=== PATIENT | male | born 1935 | race Caucasian/White ===

== ENCOUNTER → 2016-10-15 | Outpatient (CLI) | payer MEDICARE, BC ==
[2016-10-15 16:16] LABS: INR 2.2 (<1.1); Prothrombin Time 21.5 sec (9.0-12.0)
== END | disposition home or self-care (01) ==
LOC: LABWHC1 15:24
PROVIDERS: ATTEND Internal Medicine
DX: Z08 Encounter for follow-up examination after completed treatment for malignant neoplasm (principal); Z85.46 Personal history of malignant neoplasm of prostate
CPT/HCPCS: 36415; 84153; 85610

== ENCOUNTER → 2017-09-09 | Outpatient (CLI) | payer MEDICARE, BC | END | disposition home or self-care (01) | LOC: LABWHC1 13:24 | PROVIDERS: ATTEND Urology | DX: C61 Malignant neoplasm of prostate (principal) | CPT/HCPCS: 36415; 84153 ==

== ENCOUNTER 2018-08-22 17:26 | Inpatient (IN) | payer MEDICARE, BC ==
[2018-08-22] MEDS ORDERED: SODIUM CHLORIDE 0.9% 1,000 ML IV STA ×3 (18:03→21:18)
--- NOTE | 2018-08-22 18:08 | ED ---
Recheck HPI - General Chief Complaint: Recheck/Abnormal Lab/Rx Stated Complaint: abn labs Time Seen by Provider: 08/22/18 18:03 Source: patient, family, RN notes reviewed, old records reviewed Mode of arrival: wheelchair Limitations: no limitations - History of Present Illness Initial Comments: This is an 82-year-old male the ER for evaluation. Patient coming in for evaluation of multiple complaints today. Abnormal outpatient labs including elevated INR with nausea decreased appetite abdominal pain and constipation. Patient states he feels very weak lightheaded and dizzy. Having occasional bright red blood in stool. Patient denies any episodes of syncopal events. No surgery in his abdomen. Patient also place him he did have some gallbladder issues, is having some right upper quadrant bowel pain under his rib that is much worse with eating. MD Complaint: abnormal lab (Elevated INR), other (Patient also having weakness abdominal pain right upper quadrant pain) -: week(s) Returns Today for: Called Because of Abnormal Lab/Test, other (Patient also had outpatient computed tomography scan lab work sent to ER for evaluation of elevated INR) Symptoms Since Prior Visit: fever (Episodic, not documented) Context: called for abnormal lab result (As well as radiology report) Associated Symptoms: nausea, abdominal pain - Related Data Home Medications Medication Instructions Recorded Confirmed Telmisartan [Micardis] 20 mg PO DAILY 12/17/14 08/22/18 Vit C/E/Zn/Coppr/Lutein/Zeaxan 1 tab PO DAILY 12/20/14 08/22/18 [Preservision Areds 2 Softgel] Acetaminophen [Tylenol] 325 mg PO DAILY 08/22/18 08/22/18 Cholecalciferol [Vitamin D3] 1,000 unit PO DAILY 08/22/18 08/22/18 Cyanocobalamin (Vitamin B-12) 1,000 mcg PO DAILY 08/22/18 08/22/18 [Vitamin B-12] Warfarin Sodium 5 mg PO DAILY 08/22/18 08/22/18 Allergies Allergy/AdvReac Type Severity Reaction Status Date / Time No Known Allergies Allergy Verified 08/22/18 18:30 Review of Systems ROS Statement: Those systems with pertinent positive or pertinent negative responses have been documented in the HPI. ROS Other: All systems not noted in ROS Statement are negative. Past Medical History Past Medical History: Coronary Artery Disease (CAD), Hypertension, Prostate Disorder, Pulmonary Embolus (PE), Vascular Disorder Additional Past Medical History / Comment(s): prostate ca received 37 radiation treatment and Leupron, bilateral PE 2004 treated for a total 3 year with coumadin, psoriasis History of Any Multi-Drug Resistant Organisms: None Reported Past Surgical History: Orthopedic Surgery Additional Past Surgical History / Comment(s): Hx. stent right groin, and cardiac Past Anesthesia/Blood Transfusion Reactions: No Reported Reaction Past Psychological History: No Psychological Hx Reported Smoking Status: Former smoker Past Alcohol Use History: None Reported Past Drug Use History: None Reported General Exam Limitations: no limitations General appearance: alert, in no apparent distress Head exam: Present: atraumatic, normocephalic, normal inspection Eye exam: Present: normal appearance, PERRL, EOMI. Absent: scleral icterus, conjunctival injection, periorbital swelling ENT exam: Present: normal exam, mucous membranes moist Neck exam: Present: normal inspection. Absent: tenderness, meningismus, lymphadenopathy Respiratory exam: Present: normal lung sounds bilaterally. Absent: respiratory distress, wheezes, rales, rhonchi, stridor Cardiovascular Exam: Present: regular rate, normal rhythm, normal heart sounds. Absent: systolic murmur, diastolic murmur, rubs, gallop, clicks GI/Abdominal exam: Present: soft, distended, tenderness (Right upper quadrant), normal bowel sounds. Absent: guarding, rebound, rigid Extremities exam: Present: normal inspection, full ROM, normal capillary refill. Absent: tenderness, pedal edema, joint swelling, calf tenderness Back exam: Present: normal inspection Neurological exam: Present: alert, oriented X3, CN II-XII intact Psychiatric exam: Present: normal affect, normal mood Skin exam: Present: warm, dry, intact, normal color. Absent: rash Course Vital Signs 08/22/18 08/22/18 08/22/18 17:44 18:07 18:10 Temperature 98.3 F Pulse Rate 92 87 Respiratory 18 15 Rate Blood Pressure 98/69 124/71 124/71 O2 Sat by Pulse 94 L 97 96 Oximetry 08/22/18 08/22/18 08/22/18 18:20 18:30 19:00 Temperature Pulse Rate 84 85 84 Respiratory 14 17 9 L Rate Blood Pressure 124/71 124/71 O2 Sat by Pulse 98 Oximetry 08/22/18 08/22/1808/22/19 19:10 19:20 19:30 Temperature Pulse Rate 86 82 85 Respiratory 18 11 L 20 Rate Blood Pressure 131/80 131/80 131/80 O2 Sat by Pulse 95 96 Oximetry 08/22/18 08/22/18 08/22/18 19:40 19:50 20:00 Temperature Pulse Rate 72 80 85 Respiratory 6 L 11 L 19 Rate Blood Pressure 124/81 124/81 124/81 O2 Sat by Pulse 96 98 98 Oximetry 08/22/18 08/22/18 08/22/18 20:10 20:20 20:30 Temperature Pulse Rate 84 83 86 Respiratory 17 11 L 14 Rate Blood Pressure 139/71 139/71 139/71 O2 Sat by Pulse 95 97 97 Oximetry 08/22/18 08/22/18 08/22/18 20:40 20:50 21:00 Temperature Pulse Rate 86 Respiratory 11 L Rate Blood Pressure 108/70 108/70 108/70 O2 Sat by Pulse 97 96 Oximetry - Reevaluation(s) Reevaluation #1: 08/22/18 21:17 Medical record is reviewed Reevaluation #2: 08/22/18 21:17 Spoke with radiology regarding need to read outpatient computed tomography scan Medical Decision Making - Medical Decision Making 82 male the ER for evaluation with weakness coagulopathy dehydration possible new onset CVA. Patient to be admitted for further evaluation management and improvement of coagulopathy and monitoring of bleeding - Lab Data Result diagrams: 08/22/18 19:02 08/22/18 19:02 Lab Results 08/22/18 08/22/18 08/22/18 Range/Units 19:02 19:02 19:02 WBC 19.1 H (3.8-10.6) k/uL RBC 3.99 L (4.30-5.90) m/uL Hgb 12.7 L (13.0-17.5) gm/dL Hct 38.6 L (39.0-53.0) % MCV 96.6 D (80.0-100.0) fL MCH 31.9 (25.0-35.0) pg MCHC 33.0 (31.0-37.0) g/dL RDW 13.3 (11.5-15.5) % Plt Count 491 H (150-450) k/uL Neutrophils % 91 % Lymphocytes % 2 % Monocytes % 5 % Eosinophils % 1 % Basophils % 0 % Neutrophils # 17.4 H (1.3-7.7) k/uL Lymphocytes # 0.4 L (1.0-4.8) k/uL Monocytes # 1.0 (0-1.0) k/uL Eosinophils # 0.1 (0-0.7) k/uL Basophils # 0.0 (0-0.2) k/uL PT 86.7 H (9.0-12.0) sec INR 8.8 H* (<1.2) APTT 53.8 H (22.0-30.0) sec Sodium 132 L (137-145) mmol/L Potassium 6.0 H (3.5-5.1) mmol/L Chloride 99 (98-107) mmol/L Carbon Dioxide 24 (22-30) mmol/L Anion Gap 9 mmol/L BUN 50 H (9-20) mg/dL Creatinine 1.41 H (0.66-1.25) mg/dL Est GFR (CKD-EPI)AfAm 54 (>60 ml/min/1.73 sqM) Est GFR (CKD-EPI)NonAf 47 (>60 ml/min/1.73 sqM) Glucose 117 H (74-99) mg/dL Calcium 8.5 (8.4-10.2) mg/dL Total Bilirubin 4.3 H (0.2-1.3) mg/dL AST 141 H (17-59) U/L ALT 110 H (21-72) U/L Alkaline Phosphatase 842 H (38-126) U/L Total Protein 6.3 (6.3-8.2) g/dL Albumin 3.0 L (3.5-5.0) g/dL Blood Type Blood Type Recheck Antibody Screen Spec Expiration Date 08/22/18 Range/Units 19:02 WBC (3.8-10.6) k/uL RBC (4.30-5.90) m/uL Hgb (13.0-17.5) gm/dL Hct (39.0-53.0) % MCV (80.0-100.0) fL MCH (25.0-35.0) pg MCHC (31.0-37.0) g/dL RDW (11.5-15.5) % Plt Count (150-450) k/uL Neutrophils % % Lymphocytes % % Monocytes % % Eosinophils % % Basophils % % Neutrophils # (1.3-7.7) k/uL Lymphocytes # (1.0-4.8) k/uL Monocytes # (0-1.0) k/uL Eosinophils # (0-0.7) k/uL Basophils # (0-0.2) k/uL PT (9.0-12.0) sec INR (<1.2) APTT (22.0-30.0) sec Sodium (137-145) mmol/L Potassium (3.5-5.1) mmol/L Chloride (98-107) mmol/L Carbon Dioxide (22-30) mmol/L Anion Gap mmol/L BUN (9-20) mg/dL Creatinine (0.66-1.25) mg/dL Est GFR (CKD-EPI)AfAm (>60 ml/min/1.73 sqM) Est GFR (CKD-EPI)NonAf (>60 ml/min/1.73 sqM) Glucose (74-99) mg/dL Calcium (8.4-10.2) mg/dL Total Bilirubin (0.2-1.3) mg/dL AST (17-59) U/L ALT (21-72) U/L Alkaline Phosphatase (38-126) U/L Total Protein (6.3-8.2) g/dL Albumin (3.5-5.0) g/dL Blood Type A Positive Blood Type Recheck No Antibody Screen NEGATIVE Spec Expiration Date 08/25/20182301 - EKG Data -: EKG Interpreted by Me (EKG shows sinus rhythm rate of 81, DE 204, QRS 60, QTc 395) - Radiology Data Radiology results: report reviewed (CT of abdomen and pelvis show some ascites of some gallbladder disease, ultrasound shows gallstones but no significant gallbladder disease noted), image reviewed Disposition Clinical Impression: Weakness, Coagulopathy, Leukocytosis, Abdominal pain Narrative: New Onset CA? Disposition: ADMITTED IP TO THIS [facility] Condition: Fair Is patient prescribed a controlled substance at d/c from ED?: No Referrals: Jesus Montalvo MD [Primary Care Provider] - 1-2 days
[2018-08-22 19:23] LABS: Basophils % (A) 0 %; Eosinophils # (A) 0.1 k/uL (0-0.7); Eosinophils % (A) 1 %; HCT 38.6 % (39.0-53.0); HGB 12.7 gm/dL (13.0-17.5); Lymphocytes # (A) 0.4 k/uL (1.0-4.8); Lymphocytes % (A) 2 %; MCH 31.9 pg (25.0-35.0); Monocytes % (A) 5 %; Neutrophils # (A) 17.4 k/uL (1.3-7.7); Neutrophils % (A) 91 %; Platelet Count 491 k/uL (150-450); RBC 3.99 m/uL (4.30-5.90); RDW 13.3 % (11.5-15.5); WBC 19.1 k/uL (3.8-10.6)
[2018-08-22 19:25] LABS: Calcium 8.5 mg/dL (8.4-10.2); Total Bilirubin 4.3 mg/dL (0.2-1.3); Total Protein 6.3 g/dL (6.3-8.2)
[2018-08-22 19:26] LABS: Partial Thromboplastin Time 53.8 sec (22.0-30.0)
[2018-08-22 19:27] LABS: MCV 96.6 fL (80.0-100.0)
[2018-08-22 19:47] LABS: Prothrombin Time 86.7 sec (9.0-12.0)
[2018-08-22 19:53] LABS: INR 8.8 (<1.2)
[2018-08-22] MEDS ORDERED: AMPICILLIN-SULBACTAM 3 GM in SODIUM CHLORIDE 0.9% 100 ML IVPB STA (21:17)
[2018-08-22] MEDS ORDERED: PHYTONADIONE ORAL 5 MG/5 ML ORAL.SYRG PO STA (21:17)
--- NOTE | 2018-08-22 21:42 | US ---
EXAMINATION TYPE: US gallbladder DATE OF EXAM: 08/22/2018 COMPARISON: NONE CLINICAL HISTORY: Pain. Pain EXAM MEASUREMENTS: Liver Length: 16.7 cm Gallbladder Wall: 0.4 cm CBD: 0.4 cm Right Kidney: 10.1 x 4.5 x 3.7 cm Pancreas: Obscured by bowel gas Liver: Heterogenous with multiple lesions visualized. Gallbladder: Echogenic foci seen. Evidence for sonographic Jose's sign: No CBD: wnl Right Kidney: No hydronephrosis or masses seen IMPRESSION: Possible small gallstones. No dilated ducts. Heterogeneity in the liver without a discret e mass identified. This could relate variable fatty infiltration of the liver. Liver tumor cannot be entirely excluded and contrast CT scanning would be helpful for further evaluation if clinically val cated.
[2018-08-22 22:20] LABS: Amorphous Sediment,Urine Rare /hpf; Appearance,Urine Turbid (Clear); Bilirubin,Urine Negative (Negative); Blood,Urine Large (Negative); Color,Urine Dark Brown; Glucose,Urine (UA) Negative (Negative); Ketones,Urine Negative (Negative); Leukocyte Esterase,Urine Moderate (Negative); Nitrite,Urine Negative (Negative); Protein,Urine 1+ (Negative); RBC,Urine >182 /hpf (0-5); Specific Gravity,Urine 1.016 (1.001-1.035); WBC,Urine >182 /hpf (0-5)
[2018-08-22] MEDS ORDERED: SODIUM CHLORIDE 0.9% 500 ML 500 ML IV ONE (23:04)
[2018-08-23] MEDS: AMPICILLIN-SULBACTAM 3 GM in SODIUM CHLORIDE 0.9% 100 ML IVPB SCH ×4 (03:55→21:50)
[2018-08-23] MEDS ORDERED: ENOXAPARIN 40 MG/0.4 ML SYRINGE SQ SCH (09:00)
[2018-08-23 09:43] LABS: INR 4.3 (<1.2); Prothrombin Time 41.2 sec (9.0-12.0)
[2018-08-23] MEDS: SODIUM CHLORIDE 0.9% 1,000 ML IV SCH (12:16)
[2018-08-23 13:02] LABS: Basophils % (A) 0 %; Eosinophils # (A) 0.2 k/uL (0-0.7); Eosinophils % (A) 1 %; HCT 38.1 % (39.0-53.0); HGB 11.7 gm/dL (13.0-17.5); Hypochromasia Moderate; Lymphocytes # (A) 0.4 k/uL (1.0-4.8); Lymphocytes % (A) 3 %; MCH 31.3 pg (25.0-35.0); MCHC 30.6 g/dL (31.0-37.0); Macrocytosis Slight; Mean Platelet Volume 7.9; Monocytes # (A) 1.2 k/uL (0-1.0); Monocytes % (A) 8 %; Neutrophils # (A) 13.5 k/uL (1.3-7.7); Neutrophils % (A) 87 %; Platelet Count 419 k/uL (150-450); RBC 3.74 m/uL (4.30-5.90); WBC 15.5 k/uL (3.8-10.6)
--- NOTE | 2018-08-23 13:16 | P.CNPUL ---
History of Present Illness Consult date: 08/23/18 Requesting physician: Solomon Jeter Reason for consult: other Chief complaint: Right upper quadrant pain, nausea, poor appetite History of present illness: This is a very pleasant 82-year-old gentleman who follows with Dr. Montalvo as his primary care physician. He has a history of coronary artery disease with previous stent placement, hypertension, pulmonary emboli, DVT on warfarin, prostate cancer status post radiation, previous smoking history. He was seen and evaluated yesterday by Dr. Montalvo in the office. He had complaints of weight loss, poor appetite, hematuria, abdominal pain and generalized weakness and fatigue. Lab work and CAT scan of the abdomen and pelvis were ordered. The patient was found to have a high INR of 8.8 and he was directed to the emergency room. CAT scan of the abdomen revealed probable tiny calcified gallstones unchanged compared to previous. There is new mild to moderate abdominal ascites noted. Ultrasound of the gallbladder revealed possible small gallstones. No dilated ducts. There was a heterogeneity in the liver without discrete mass identified. There is some variable fatty infiltration and a tumor could not be entirely excluded. Computed tomography scan with contrast was recommended. White count 19.1. Hemoglobin 12.7. INR down to 4.3. Sodium 132. Potassium 6.0. Creatinine 1.41. Urinalysis with moderate leukocytes, large blood. Culture is pending. The patient is seen today in the dictation on the regular medical floor. He is awake and alert in no acute distress. No shortness of breath, cough or congestion. No chills or night sweats. Abdominal discomfort has resolved. He is currently afebrile. Maintaining O2 saturations in the mid 90s on room air. He is hemodynamically stable. He is currently on Unasyn. 0.9 normal saline at 100 ML's per hour. He did receive one dose of vitamin K. Review of Systems REVIEW OF SYSTEMS: CONSTITUTIONAL: Alert, oriented. No acute distress. On room air. EYES: Denies change in vision. EARS, NOSE, MOUTH, THROAT: Denies headaches, denies sore throat. CARDIOVASCULAR: Denies chest pain, palpitations or syncopal episodes. RESPIRATORY: Denies shortness of breath, cough, congestion or hemoptysis. GASTROINTESTINAL: Poor appetite, weight loss. GENITOURINARY: Positive hematuria. MUSKULOSKELETAL: Denies pain, denies swelling. INTEGUMENTARY: Denies rash, denies eczema. NEUROLOGICAL: Denies recent memory loss, no recent seizure activity. PSYCHIATRIC: Denies anxiety, denies depression. HEMATOLOGIC/LYMPHATIC: Denies anemia, denies enlarged lymph nodes. Past Medical History Past Medical History: Coronary Artery Disease (CAD), Hypertension, Prostate Disorder, Pulmonary Embolus (PE), Vascular Disorder Additional Past Medical History / Comment(s): prostate ca received 37 radiation treatment and Leupron, bilateral PE 2004 treated for a total 3 year with coumadin, psoriasis History of Any Multi-Drug Resistant Organisms: None Reported Past Surgical History: Orthopedic Surgery Additional Past Surgical History / Comment(s): Hx. stent right groin, and cardiac Past Anesthesia/Blood Transfusion Reactions: No Reported Reaction Past Psychological History: No Psychological Hx Reported Smoking Status: Former smoker Past Alcohol Use History: None Reported Past Drug Use History: None Reported Medications and Allergies Home Medications Medication Instructions Recorded Confirmed Type Telmisartan [Micardis] 20 mg PO DAILY 12/17/14 08/22/18 History Vit C/E/Zn/Coppr/Lutein/Zeaxan 1 tab PO DAILY 12/20/14 08/22/18 History [Preservision Areds 2 Softgel] Acetaminophen [Tylenol] 325 mg PO DAILY 08/22/18 08/22/18 History Cholecalciferol [Vitamin D3] 1,000 unit PO DAILY 08/22/18 08/22/18 History Cyanocobalamin (Vitamin B-12) 1,000 mcg PO DAILY 08/22/18 08/22/18 History [Vitamin B-12] Warfarin Sodium 5 mg PO DAILY 08/22/18 08/22/18 History Allergies Allergy/AdvReac Type Severity Reaction Status Date / Time No Known Allergies Allergy Verified 08/22/18 18:30 Physical Exam Vitals: Vital Signs Temp Pulse Pulse Resp BP BP Pulse Ox 08/23/18 12:19 98.0 F 78 16 115/98 96 08/23/18 08:00 18 08/23/18 05:00 98.2 F 78 18 109/56 95 08/22/18 23:26 79 18 120/75 98 08/22/18 23:10 97.3 F L 08/22/18 23:00 97.6 F 73 18 158/84 96 08/22/18 21:00 108/70 0318/19 20:50 108/70 96 08/22/18 20:40 86 11 L 108/70 97 08/22/18 20:30 86 14 139/71 97 08/22/18 20:20 83 11 L 139/71 97 08/22/18 20:10 84 17 139/71 95 08/22/18 20:00 85 19 124/81 98 08/22/18 19:50 80 11 L 124/81 98 08/22/18 19:40 72 6 L 124/81 96 08/22/18 19:30 85 20 131/80 96 08/22/18 19:20 82 11 L 131/80 95 08/22/18 19:10 86 18 131/80 08/22/18 19:00 84 9 L 08/22/18 18:30 85 17 124/71 98 08/22/18 18:20 84 14 124/71 08/22/18 18:10 87 15 124/71 96 08/22/18 18:07 124/71 97 08/22/18 17:44 98.3 F 92 18 98/69 94 L Intake and Output 08/22/18 08/23/18 08/23/18 22:59 06:59 14:59 Intake Total 800 Balance 800 Intake: Intake, IV Titration 800 Amount Sodium Chloride 0.9% 1, 800 000 ml @ 100 mls/hr IV . Q10H STA Rx#:[id number] Other: Voiding Method Toilet Toilet Urinal Urinal # Voids 180 Weight 92.079 kg 92.079 kg GENERAL EXAM: Alert, active, comfortable in no apparent distress. On room air. HEAD: Normocephalic. EYES: Normal reaction of pupils, equal size. NOSE: Clear with pink turbinates. THROAT: No erythema or exudates. NECK: No masses, no JVD. CHEST: No chest wall deformity. LUNGS: Equal air entry with no crackles, wheeze, rhonchi or dullness. CVS: S1 and S2 normal with no audible murmur, regular rhythm. ABDOMEN: Distended, normal bowel sounds, no guarding or rigidity. SPINE: No scoliosis or deformity SKIN: No rashes CENTRAL NERVOUS SYSTEM: No focal deficits, tone is normal in all 4 extremities. EXTREMITIES: There is no peripheral edema. No clubbing, no cyanosis. Peripheral pulses are intact. Results - Laboratory Findings CBC and BMP: 08/22/18 19:02 08/22/18 19:02 PT/INR, D-dimer PT 41.2 sec (9.0-12.0) H 08/23/18 07:50 INR 4.3 (<1.2) H 08/23/18 07:50 Abnormal lab findings: Abnormal Labs 08/22/18 08/22/18 08/22/18 19:02 19:02 19:02 WBC 19.1 H RBC 3.99 L Hgb 12.7 L Hct 38.6 L Plt Count 491 H Neutrophils # 17.4 H Lymphocytes # 0.4 L PT 86.7 H INR 8.8 H* APTT 53.8 H Sodium 132 L Potassium 6.0 H BUN 50 H Creatinine 1.41 H Glucose 117 H Total Bilirubin 4.3 H AST 141 H ALT 110 H Alkaline Phosphatase 842 H Albumin 3.0 L Lipase Urine Protein Urine Blood Ur Leukocyte Esterase Urine RBC Urine WBC Amorphous Sediment 08/22/18 08/22/18 08/23/18 19:02 22:00 07:50 WBC RBC Hgb Hct Plt Count Neutrophils # Lymphocytes # PT 41.2 H INR 4.3 H APTT Sodium Potassium BUN Creatinine Glucose Total Bilirubin AST ALT Alkaline Phosphatase Albumin Lipase 312 H Urine Protein 1+ H Urine Blood Large H Ur Leukocyte Esterase Moderate H Urine RBC >182 H Urine WBC >182 H Amorphous Sediment Rare H - Diagnostic Findings Chest x-ray: image reviewed Assessment and Plan Assessment: Impression: #1 Unexplained weight loss with abdominal discomfort of unclear etiology. Leukocytosis. Elevated LFTs, alk phos, bilirubin and lipase. #2 Hematuria secondary to supratherapeutic INR. Suspect urinary tract infection. #3 Coagulopathy with an INR of 8.8 on admission, currently 4.3. Received vitamin K 10 mg 1. #4 History of pulmonary embolism/DVT. #5 Hypertension. #6 History of prostate cancer status post radiation and Lupron. #7 Chronic venous stasis of the left lower extremity with previous venous ulcer. #8 History of coronary artery disease with previous stent placement. #9 Peripheral vascular disease with previous stent placement to the right femoral artery. Plan: The patient was seen and evaluated by Dr. Phillips. Computed tomography scan of the abdomen, ultrasound the gallbladder and labs were all reviewed. Patient is currently stable from the pulmonary standpoint. We'll request a surgical consultation regarding the ascites and gallstones with right upper quadrant pain. He remains on Unasyn for now. INR trending down. We will continue to follow and make further recommendations based on his clinical status. I, the cosigning physician, performed a history & physical examination of the patient. Lungs sounds are clear. Maintaining good O2 saturations in the 90s on room air. I discussed the assessment and plan of care with my nurse practitioner, Marisabel Contreras. I attest to the above consultation as dictated by her. Time with Patient: Greater than 30
[2018-08-23 13:19] LABS: MCV 102.1 fL (80.0-100.0)
--- NOTE | 2018-08-23 14:39 | P.HPIM ---
History of Present Illness 82-year-old wasn't gentleman came in with compensative hematuria and highly elevated INR of 8.8. PCP Dr. Montalvo sent in to the hospital because of highly elevated INR. Patient has not been eating well because of loss of appetite p atient has ink and weight loss because of poor appetite. Patient believes his poor appetite is secondary to right upper quadrant abdominal pain patient appears to have gallstones which were wrapped present in the previous imagings although there is no evidence of cholecystitis at this time. Patient urine analysis showed highly elevated white blood cell count patient was comparing of fever chills had a fever of 101.3 couple days ago. Patient had hematuria which was was probably secondary to UTI as well as elevated INR. 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 Patient was started on IV fluids and 100 mL per hour patient was given Unasyn which will continue at this time which is ill be helpful for her UTI as well as gallbladder disease. General surgery was consulted ultrasound did show gallstones. Patient was given 1 dose of vitamin K in ER. Patient does comparing of constipation denied any urinary retention denied any dysuria denied any cough runny nose nausea vomiting. Patient's right upper quadrant abdominal pain is on and off cannot related to food. Review of Systems REVIEW OF SYSTEMS: CONSTITUTIONAL: no malaise, no fatigue. HEENT: No recent visual problems or hearing problems. Denied any sore throat. CARDIOVASCULAR: No chest pain, orthopnea, PND, no palpitations, no syncope. PULMONARY: No shortness of breath, no cough, no hemoptysis. GASTROINTESTINAL: As mentioned in HPI NEUROLOGICAL: No headaches, no weakness, no numbness. HEMATOLOGICAL: Denies any bleeding or petechiae. GENITOURINARY: As mentioned in HPI MUSCULOSKELETAL/RHEUMATOLOGICAL: Denies any joint pain, swelling, or any muscle pain. ENDOCRINE: Denies any polyuria or polydipsia. The rest of the 14-point review of systems is negative. Past Medical History Past Medical History: Coronary Artery Disease (CAD), Hypertension, Prostate Disorder, Pulmonary Embolus (PE), Vascular Disorder Additional Past Medical History / Comment(s): prostate ca received 37 radiation treatment and Leupron, bilateral PE 2004 treated for a total 3 year with coumadin, psoriasis History of Any Multi-Drug Resistant Organisms: None Reported Past Surgical History: Orthopedic Surgery Additional Past Surgical History / Comment(s): Hx. stent right groin, and cardiac Past Anesthesia/Blood Transfusion Reactions: No Reported Reaction Past Psychological History: No Psychological Hx Reported Smoking Status: Former smoker Past Alcohol Use History: None Reported Past Drug Use History: None Reported Medications and Allergies Home Medications Medication Instructions Recorded Confirmed Type Telmisartan [Micardis] 20 mg PO DAILY 12/17/14 08/22/18 History Vit C/E/Zn/Coppr/Lutein/Zeaxan 1 tab PO DAILY 12/20/14 08/22/18 History [Preservision Areds 2 Softgel] Acetaminophen [Tylenol] 325 mg PO DAILY 08/22/18 08/22/18 History Cholecalciferol [Vitamin D3] 1,000 unit PO DAILY 08/22/18 08/22/18 History Cyanocobalamin (Vitamin B-12) 1,000 mcg PO DAILY 08/22/18 08/22/18 History [Vitamin B-12] Warfarin Sodium 5 mg PO DAILY 08/22/18 08/22/18 History Allergies Allergy/AdvReac Type Severity Reaction Status Date / Time No Known Allergies Allergy Verified 08/22/18 18:30 Physical Exam Vitals: Vital Signs Temp Pulse Pulse Resp BP BP Pulse Ox 08/23/18 12:19 98.0 F 78 16 115/98 96 08/23/18 08:00 18 08/23/18 05:00 98.2 F 78 18 109/56 95 08/22/18 23:26 79 18 120/75 98 08/22/18 23:10 97.3 F L 08/22/18 23:00 97.6 F 73 18 158/84 96 08/22/18 21:00 108/70 08/22/18 20:50 108/70 96 08/22/18 20:40 86 11 L 108/70 97 08/22/18 20:30 86 14 139/71 97 08/22/18 20:20 83 11 L 139/71 97 08/22/18 20:10 84 17 139/71 95 08/22/18 20:00 85 19 124/81 98 08/22/18 19:50 80 11 L 124/81 98 03/18/19 19:40 72 6 L 124/81 96 08/22/18 19:30 85 20 131/80 96 08/22/18 19:20 82 11 L 131/80 95 08/22/18 19:10 86 18 131/80 08/22/18 19:00 84 9 L 08/22/18 18:30 85 17 124/71 98 08/22/18 18:20 84 14 124/71 08/22/18 18:10 87 15 124/71 96 08/22/18 18:07 124/71 97 08/22/18 17:44 98.3 F 92 18 98/69 94 L Intake and Output 08/22/18 08/23/18 08/23/18 22:59 06:59 14:59 Intake Total 800 850 Balance 800 850 Intake: IV 100 Ampicillin-Sulbactam 3 gm 100 In Sodium Chloride 0.9% 100 ml @ 200 mls/hr IVPB ONCE STA Rx#:[id number] Intake, IV Titration 800 750 Amount Sodium Chloride 0.9% 1, 750 000 ml @ 100 mls/hr IV . Q10H FILEMON Rx#:[id number] Sodium Chloride 0.9% 1, 800 000 ml @ 100 mls/hr IV . Q10H STA Rx#:[id number] Other: Voiding Method Toilet Toilet Urinal Urinal # Voids 180 Weight 92.079 kg 92.079 kg PHYSICAL EXAMINATION: GENERAL: The patient is alert and oriented x3, not in any acute distress. Well developed, well nourished. HEENT: Pupils are round and equally reacting to light. EOMI. No scleral icterus. No conjunctival pallor. Normocephalic, atraumatic. No pharyngeal erythema. No thyromegaly. CARDIOVASCULAR: S1 and S2 present. No murmurs, rubs, or gallops. PULMONARY: Chest is clear to auscultation, no wheezing or crackles. ABDOMEN: Abdomen is distended nontender mostly tympanic cannot really assess for shifting dullness MUSCULOSKELETAL: No joint swelling or deformity. EXTREMITIES: No cyanosis, clubbing, or pedal edema. NEUROLOGICAL: Gross neurological examination did not reveal any focal deficits. SKIN: No rashes. Results CBC & Chem 7: 08/23/18 07:50 08/22/18 19:02 Labs: Abnormal Lab Results - Last 24 Hours (Table) 08/22/18 08/22/18 08/22/18 Range/Units 19:02 19:02 19:02 WBC 19.1 H (3.8-10.6) k/uL RBC 3.99 L (4.30-5.90) m/uL Hgb 12.7 L (13.0-17.5) gm/dL Hct 38.6 L (39.0-53.0) % MCV (80.0-100.0) fL MCHC (31.0-37.0) g/dL Plt Count 491 H (150-450) k/uL Neutrophils # 17.4 H (1.3-7.7) k/uL Lymphocytes # 0.4 L (1.0-4.8) k/uL Monocytes # (0-1.0) k/uL PT 86.7 H (9.0-12.0) sec INR 8.8 H* (<1.2) APTT 53.8 H (22.0-30.0) sec Sodium 132 L (137-145) mmol/L Potassium 6.0 H (3.5-5.1) mmol/L BUN 50 H (9-20) mg/dL Creatinine 1.41 H (0.66-1.25) mg/dL Glucose 117 H (74-99) mg/dL Total Bilirubin 4.3 H (0.2-1.3) mg/dL AST 141 H (17-59) U/L ALT 110 H (21-72) U/L Alkaline Phosphatase 842 H (38-126) U/L Albumin 3.0 L (3.5-5.0) g/dL Lipase (23-300) U/L Urine Protein (Negative) Urine Blood (Negative) Ur Leukocyte Esterase (Negative) Urine RBC (0-5) /hpf Urine WBC (0-5) /hpf Amorphous Sediment (None) /hpf 08/22/18 08/22/18 08/23/18 Range/Units 19:02 22:00 07:50 WBC (3.8-10.6) k/uL RBC (4.30-5.90) m/uL Hgb (13.0-17.5) gm/dL Hct (39.0-53.0) % MCV (80.0-100.0) fL MCHC (31.0-37.0) g/dL Plt Count (150-450) k/uL Neutrophils # (1.3-7.7) k/uL Lymphocytes # (1.0-4.8) k/uL Monocytes # (0-1.0) k/uL PT 41.2 H (9.0-12.0) sec INR 4.3 H (<1.2) APTT (22.0-30.0) sec Sodium (137-145) mmol/L Potassium (3.5-5.1) mmol/L BUN (9-20) mg/dL Creatinine (0.66-1.25) mg/dL Glucose (74-99) mg/dL Total Bilirubin (0.2-1.3) mg/dL AST (17-59) U/L ALT (21-72) U/L Alkaline Phosphatase (38-126) U/L Albumin (3.5-5.0) g/dL Lipase 312 H (23-300) U/L Urine Protein 1+ H (Negative) Urine Blood Large H (Negative) Ur Leukocyte Esterase Moderate H (Negative) Urine RBC >182 H (0-5) /hpf Urine WBC >182 H (0-5) /hpf Amorphous Sediment Rare H (None) /hpf 08/23/18 Range/Units 07:50 WBC 15.5 H (3.8-10.6) k/uL RBC 3.74 L (4.30-5.90) m/uL Hgb 11.7 L (13.0-17.5) gm/dL Hct 38.1 L (39.0-53.0) % MCV 102.1 H D (80.0-100.0) fL MCHC 30.6 L (31.0-37.0) g/dL Plt Count (150-450) k/uL Neutrophils # 13.5 H (1.3-7.7) k/uL Lymphocytes # 0.4 L (1.0-4.8) k/uL Monocytes # 1.2 H (0-1.0) k/uL PT (9.0-12.0) sec INR (<1.2) APTT (22.0-30.0) sec Sodium (137-145) mmol/L Potassium (3.5-5.1) mmol/L BUN (9-20) mg/dL Creatinine (0.66-1.25) mg/dL Glucose (74-99) mg/dL Total Bilirubin (0.2-1.3) mg/dL AST (17-59) U/L ALT (21-72) U/L Alkaline Phosphatase (38-126) U/L Albumin (3.5-5.0) g/dL Lipase (23-300) U/L Urine Protein (Negative) Urine Blood (Negative) Ur Leukocyte Esterase (Negative) Urine RBC (0-5) /hpf Urine WBC (0-5) /hpf Amorphous Sediment (None) /hpf Microbiology - Last 24 Hours (Table) 08/22/18 22:00 Urine Culture - Preliminary Urine,Voided Thrombosis Risk Factor Assmnt - Choose All That Apply Any of the Below Risk Factors Present?: Yes Each Factor Represents 1 point: Obesity (BMI >25) Other Risk Factors: Yes Each Risk Factor Represents 2 Points: Malignancy Each Risk Factor Represents 3 Points: Age 75 years or older Thrombosis Risk Factor Assessment Total Risk Factor Score: 6 Thrombosis Risk Factor Assessment Level: High Risk Assessment and Plan Plan: -Hematuria: Possibility of UTI cannot be ruled out patient will be continued on Unasyn, Unasyn is helpful for any intra-abdominal infection although suspicion is low for that -Subtherapeutic INR In with the leading to hematuria Coumadin will be held patient received vitamin K we'll recheck his insurance if the patient will qualify for any of the new anticoagulants -Cholelithiasis general surgery was consulted continue with antibiotics for now -Acute renal failure on 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 -History of DVTs PEs with the Lashawn filter, presently holding off on Coumadin because of supratherapeutic INR hematuria -History of prostate cancer status post radiation therapy and Lupron -Chronic venous stasis of the left lower extremity with circumferential involvement. Just below the mid morales area -Intravascular disease -Patient will need pharmacologic GI prophylaxis
--- NOTE | 2018-08-23 15:14 | P.GSCN ---
<Kaur Pastor - Last Filed: 08/23/18 15:00> History of Present Illness Consult date: 08/23/18 Reason for Consult: elevated LFTs, gallbladder pain Requesting physician: Manjeet Phillips History of present illness: CHIEF COMPLAINT: weakness HISTORY OF PRESENT ILLNESS: 82-year-old male who presented to the emergency room after he was found to have an elevated INR 8.8. Patient reports having intermittent right upper quadrant pain over the last few weeks. Patient currently denies pain at time of examination. He states pain does not worsen with eating. He states he has been in good health overall, but the past few weeks he has become noticeably more weak. He denies nausea or vomiting. He does report decreased appetite. He states he has not ate an actual meal in about two weeks but has been drinking a lot of water because he was afraid of getting dehydrated. He reports weight loss of 25 pounds over the past three weeks. PAST MEDICAL HISTORY: See list. PAST SURGICAL HISTORY: See list. SOCIAL HISTORY: No illicit drug use. REVIEW OF SYSTEMS: CONSTITUTIONAL: Reports fever at home. Reports generalized weakness. Reports weight loss of 25 pounds. HEENT: Denies blurred vision, vision changes, or eye pain. Denies hemoptysis CARDIOVASCULAR: Denies chest pain or pressure. RESPIRATORY: No shortness of breath. GASTROINTESTINAL: Refer to HPI for pertinent findings HEMATOLOGIC: Denies bleeding disorders. GENITOURINARY: Denies any blood in urine. SKIN: Denies pruitis. Denies rash. PHYSICAL EXAM: VITAL SIGNS: Reviewed. GENERAL: Well-developed in no acute distress. HEENT: No sclera icterus. Extraocular movements grossly intact. Moist buccal mucosa. Head is atraumatic, normocephalic. ABDOMEN: Soft. Nondistended. Nontender. Small amount of ascites present. Positive bowel sounds. NEUROLOGIC: Alert and oriented. Cranial nerves II through XII grossly intact. LABORATORY DATA: WBC 19.1 on admission. Repeat 15.5. INR 8.8. Repeat 4.3. Patient did receive 1 dose of vitamin K. Total bilirubin 4.3. AST 141. ALT 110. Alkaline phosphatase 842. Lipase 312. IMAGIN. Gallbladder ultrasound possible small gallstones. No dilated ducts. Heterogeneity in the liver without a discrete mass identified. This could relate variable fatty infiltration of the liver. Liver tumor cannot be entirely excluded. 2. CT abdomen and pelvis: Tiny calcified gallstones unchanged. There is new mild to moderate abdominal ascites fluid compared to old exam. Bile ducts are not dilated. No evidence of pancreatic mass. Gallbladder is normal size. ASSESSMENT: 1. Cholelithiasis 2. Hyperbilirubinemia 3. Transaminitis 4. Coagulopathy PLAN: No concrete evidence for acute cholecystitis. Continue antibiotics. Monitor labs. Repeat in AM. Consult GI for further workup of lab abnormalities. Nurse practitioner note has been reviewed by physician. Signing provider agrees with the documented findings, assessment, and plan of care. Past Medical History Past Medical History: Coronary Artery Disease (CAD), Hypertension, Prostate Disorder, Pulmonary Embolus (PE), Vascular Disorder Additional Past Medical History / Comment(s): prostate ca received 37 radiation treatment and Leupron, bilateral PE 2004 treated for a total 3 year with coumadin, psoriasis History of Any Multi-Drug Resistant Organisms: None Reported Past Surgical History: Orthopedic Surgery Additional Past Surgical History / Comment(s): Hx. stent right groin, and cardiac Past Anesthesia/Blood Transfusion Reactions: No Reported Reaction Past Psychological History: No Psychological Hx Reported Smoking Status: Former smoker Past Alcohol Use History: None Reported Past Drug Use History: None Reported Medications and Allergies Home Medications Medication Instructions Recorded Confirmed Type Telmisartan [Micardis] 20 mg PO DAILY 12/17/14 08/22/18 History Vit C/E/Zn/Coppr/Lutein/Zeaxan 1 tab PO DAILY 12/20/14 08/22/18 History [Preservision Areds 2 Softgel] Acetaminophen [Tylenol] 325 mg PO DAILY 08/22/18 08/22/18 History Cholecalciferol [Vitamin D3] 1,000 unit PO DAILY 08/22/18 08/22/18 History Cyanocobalamin (Vitamin B-12) 1,000 mcg PO DAILY 08/22/18 08/22/18 History [Vitamin B-12] Warfarin Sodium 5 mg PO DAILY 08/22/18 08/22/18 History Allergies Allergy/AdvReac Type Severity Reaction Status Date / Time No Known Allergies Allergy Verified 08/22/18 18:30 Surgical - Exam Vital Signs Temp Pulse Resp BP Pulse Ox 98.3 F 92 18 98/69 94 L 08/22/18 17:44 08/22/18 17:44 08/22/18 17:44 08/22/18 17:44 08/22/18 17:44 Results - Labs 08/23/18 07:50 08/22/18 19:02 Abnormal Lab Results - Last 24 Hours (Table) 08/22/18 08/22/18 08/22/18 Range/Units 19:02 19:02 19:02 WBC 19.1 H (3.8-10.6) k/uL RBC 3.99 L (4.30-5.90) m/uL Hgb 12.7 L (13.0-17.5) gm/dL Hct 38.6 L (39.0-53.0) % MCV (80.0-100.0) fL MCHC (31.0-37.0) g/dL Plt Count 491 H (150-450) k/uL Neutrophils # 17.4 H (1.3-7.7) k/uL Lymphocytes # 0.4 L (1.0-4.8) k/uL Monocytes # (0-1.0) k/uL PT 86.7 H (9.0-12.0) sec INR 8.8 H* (<1.2) APTT 53.8 H (22.0-30.0) sec Sodium 132 L (137-145) mmol/L Potassium 6.0 H (3.5-5.1) mmol/L BUN 50 H (9-20) mg/dL Creatinine 1.41 H (0.66-1.25) mg/dL Glucose 117 H (74-99) mg/dL Total Bilirubin 4.3 H (0.2-1.3) mg/dL AST 141 H (17-59) U/L ALT 110 H (21-72) U/L Alkaline Phosphatase 842 H (38-126) U/L Albumin 3.0 L (3.5-5.0) g/dL Lipase (23-300) U/L Urine Protein (Negative) Urine Blood (Negative) Ur Leukocyte Esterase (Negative) Urine RBC (0-5) /hpf Urine WBC (0-5) /hpf Amorphous Sediment (None) /hpf 08/22/18 08/22/18 08/23/18 Range/Units 19:02 22:00 07:50 WBC (3.8-10.6) k/uL RBC (4.30-5.90) m/uL Hgb (13.0-17.5) gm/dL Hct (39.0-53.0) % MCV (80.0-100.0) fL MCHC (31.0-37.0) g/dL Plt Count (150-450) k/uL Neutrophils # (1.3-7.7) k/uL Lymphocytes # (1.0-4.8) k/uL Monocytes # (0-1.0) k/uL PT 41.2 H (9.0-12.0) sec INR 4.3 H (<1.2) APTT (22.0-30.0) sec Sodium (137-145) mmol/L Potassium (3.5-5.1) mmol/L BUN (9-20) mg/dL Creatinine (0.66-1.25) mg/dL Glucose (74-99) mg/dL Total Bilirubin (0.2-1.3) mg/dL AST (17-59) U/L ALT (21-72) U/L Alkaline Phosphatase (38-126) U/L Albumin (3.5-5.0) g/dL Lipase 312 H (23-300) U/L Urine Protein 1+ H (Negative) Urine Blood Large H (Negative) Ur Leukocyte Esterase Moderate H (Negative) Urine RBC >182 H (0-5) /hpf Urine WBC >182 H (0-5) /hpf Amorphous Sediment Rare H (None) /hpf 08/23/18 Range/Units 07:50 WBC 15.5 H (3.8-10.6) k/uL RBC 3.74 L (4.30-5.90) m/uL Hgb 11.7 L (13.0-17.5) gm/dL Hct 38.1 L (39.0-53.0) % MCV 102.1 H D (80.0-100.0) fL MCHC 30.6 L (31.0-37.0) g/dL Plt Count (150-450) k/uL Neutrophils # 13.5 H (1.3-7.7) k/uL Lymphocytes # 0.4 L (1.0-4.8) k/uL Monocytes # 1.2 H (0-1.0) k/uL PT (9.0-12.0) sec INR (<1.2) APTT (22.0-30.0) sec Sodium (137-145) mmol/L Potassium (3.5-5.1) mmol/L BUN (9-20) mg/dL Creatinine (0.66-1.25) mg/dL Glucose (74-99) mg/dL Total Bilirubin (0.2-1.3) mg/dL AST (17-59) U/L ALT (21-72) U/L Alkaline Phosphatase (38-126) U/L Albumin (3.5-5.0) g/dL Lipase (23-300) U/L Urine Protein (Negative) Urine Blood (Negative) Ur Leukocyte Esterase (Negative) Urine RBC (0-5) /hpf Urine WBC (0-5) /hpf Amorphous Sediment (None) /hpf Microbiology - Last 24 Hours (Table) 08/22/18 22:00 Urine Culture - Preliminary Urine,Voided Diabetes panel 08/22/18 Range/Units 19:02 Sodium 132 L (137-145) mmol/L Potassium 6.0 H (3.5-5.1) mmol/L Chloride 99 (98-107) mmol/L Carbon Dioxide 24 (22-30) mmol/L BUN 50 H (9-20) mg/dL Creatinine 1.41 H (0.66-1.25) mg/dL Glucose 117 H (74-99) mg/dL Calcium 8.5 (8.4-10.2) mg/dL AST 141 H (17-59) U/L ALT 110 H (21-72) U/L Alkaline Phosphatase 842 H (38-126) U/L Total Protein 6.3 (6.3-8.2) g/dL Albumin 3.0 L (3.5-5.0) g/dL Calcium panel 08/22/18 Range/Units 19:02 Calcium 8.5 (8.4-10.2) mg/dL Albumin 3.0 L (3.5-5.0) g/dL Pituitary panel 08/22/18 Range/Units 19:02 Sodium 132 L (137-145) mmol/L Potassium 6.0 H (3.5-5.1) mmol/L Chloride 99 (98-107) mmol/L Carbon Dioxide 24 (22-30) mmol/L BUN 50 H (9-20) mg/dL Creatinine 1.41 H (0.66-1.25) mg/dL Glucose 117 H (74-99) mg/dL Calcium 8.5 (8.4-10.2) mg/dL Adrenal panel 08/22/18 Range/Units 19:02 Sodium 132 L (137-145) mmol/L Potassium 6.0 H (3.5-5.1) mmol/L Chloride 99 (98-107) mmol/L Carbon Dioxide 24 (22-30) mmol/L BUN 50 H (9-20) mg/dL Creatinine 1.41 H (0.66-1.25) mg/dL Glucose 117 H (74-99) mg/dL Calcium 8.5 (8.4-10.2) mg/dL Total Bilirubin 4.3 H (0.2-1.3) mg/dL AST 141 H (17-59) U/L ALT 110 H (21-72) U/L Alkaline Phosphatase 842 H (38-126) U/L Total Protein 6.3 (6.3-8.2) g/dL Albumin 3.0 L (3.5-5.0) g/dL <Dom Downs - Last Filed: 08/23/18 17:57> History of Present Illness History of present illness: As above. Patient with elevated liver enzymes and evidence of underlying gallstones. Patient has complaints of right upper quadrant pain. Suspect choledocholithiasis versus neoplasm. Presence of ascites along with the patient's general decline in condition over the last several weeks is alarming for the possibility of malignancy. We'll consult gastroenterology at this time. Will require MRCP at the very least. Continue to hold anticoagulation. We'll follow with you. Surgical - Exam Vital Signs Temp Pulse Resp BP Pulse Ox 98.3 F 92 18 98/69 94 L 08/22/18 17:44 08/22/18 17:44 08/22/18 17:44 08/22/18 17:44 08/22/18 17:44 Results - Labs 08/23/18 07:50 08/22/18 19:02 Abnormal Lab Results - Last 24 Hours (Table) 08/22/18 08/22/18 08/22/18 Range/Units 19:02 19:02 19:02 WBC 19.1 H (3.8-10.6) k/uL RBC 3.99 L (4.30-5.90) m/uL Hgb 12.7 L (13.0-17.5) gm/dL Hct 38.6 L (39.0-53.0) % MCV (80.0-100.0) fL MCHC (31.0-37.0) g/dL Plt Count 491 H (150-450) k/uL Neutrophils # 17.4 H (1.3-7.7) k/uL Lymphocytes # 0.4 L (1.0-4.8) k/uL Monocytes # (0-1.0) k/uL PT 86.7 H (9.0-12.0) sec INR 8.8 H* (<1.2) APTT 53.8 H (22.0-30.0) sec Sodium 132 L (137-145) mmol/L Potassium 6.0 H (3.5-5.1) mmol/L BUN 50 H (9-20) mg/dL Creatinine 1.41 H (0.66-1.25) mg/dL Glucose 117 H (74-99) mg/dL Total Bilirubin 4.3 H (0.2-1.3) mg/dL AST 141 H (17-59) U/L ALT 110 H (21-72) U/L Alkaline Phosphatase 842 H (38-126) U/L Albumin 3.0 L (3.5-5.0) g/dL Lipase (23-300) U/L Urine Protein (Negative) Urine Blood (Negative) Ur Leukocyte Esterase (Negative) Urine RBC (0-5) /hpf Urine WBC (0-5) /hpf Amorphous Sediment (None) /hpf 08/22/18 08/22/18 08/23/18 Range/Units 19:02 22:00 07:50 WBC (3.8-10.6) k/uL RBC (4.30-5.90) m/uL Hgb (13.0-17.5) gm/dL Hct (39.0-53.0) % MCV (80.0-100.0) fL MCHC (31.0-37.0) g/dL Plt Count (150-450) k/uL Neutrophils # (1.3-7.7) k/uL Lymphocytes # (1.0-4.8) k/uL Monocytes # (0-1.0) k/uL PT 41.2 H (9.0-12.0) sec INR 4.3 H (<1.2) APTT (22.0-30.0) sec Sodium (137-145) mmol/L Potassium (3.5-5.1) mmol/L BUN (9-20) mg/dL Creatinine (0.66-1.25) mg/dL Glucose (74-99) mg/dL Total Bilirubin (0.2-1.3) mg/dL AST (17-59) U/L ALT (21-72) U/L Alkaline Phosphatase (38-126) U/L Albumin (3.5-5.0) g/dL Lipase 312 H (23-300) U/L Urine Protein 1+ H (Negative) Urine Blood Large H (Negative) Ur Leukocyte Esterase Moderate H (Negative) Urine RBC >182 H (0-5) /hpf Urine WBC >182 H (0-5) /hpf Amorphous Sediment Rare H (None) /hpf 08/23/18 Range/Units 07:50 WBC 15.5 H (3.8-10.6) k/uL RBC 3.74 L (4.30-5.90) m/uL Hgb 11.7 L (13.0-17.5) gm/dL Hct 38.1 L (39.0-53.0) % MCV 102.1 H D (80.0-100.0) fL MCHC 30.6 L (31.0-37.0) g/dL Plt Count (150-450) k/uL Neutrophils # 13.5 H (1.3-7.7) k/uL Lymphocytes # 0.4 L (1.0-4.8) k/uL Monocytes # 1.2 H (0-1.0) k/uL PT (9.0-12.0) sec INR (<1.2) APTT (22.0-30.0) sec Sodium (137-145) mmol/L Potassium (3.5-5.1) mmol/L BUN (9-20) mg/dL Creatinine (0.66-1.25) mg/dL Glucose (74-99) mg/dL Total Bilirubin (0.2-1.3) mg/dL AST (17-59) U/L ALT (21-72) U/L Alkaline Phosphatase (38-126) U/L Albumin (3.5-5.0) g/dL Lipase (23-300) U/L Urine Protein (Negative) Urine Blood (Negative) Ur Leukocyte Esterase (Negative) Urine RBC (0-5) /hpf Urine WBC (0-5) /hpf Amorphous Sediment (None) /hpf Microbiology - Last 24 Hours (Table) 08/22/18 22:00 Urine Culture - Preliminary Urine,Voided Diabetes panel 08/22/18 Range/Units 19:02 Sodium 132 L (137-145) mmol/L Potassium 6.0 H (3.5-5.1) mmol/L Chloride 99 (98-107) mmol/L Carbon Dioxide 24 (22-30) mmol/L BUN 50 H (9-20) mg/dL Creatinine 1.41 H (0.66-1.25) mg/dL Glucose 117 H (74-99) mg/dL Calcium 8.5 (8.4-10.2) mg/dL AST 141 H (17-59) U/L ALT 110 H (21-72) U/L Alkaline Phosphatase 842 H (38-126) U/L Total Protein 6.3 (6.3-8.2) g/dL Albumin 3.0 L (3.5-5.0) g/dL Calcium panel 08/22/18 Range/Units 19:02 Calcium 8.5 (8.4-10.2) mg/dL Albumin 3.0 L (3.5-5.0) g/dL Pituitary panel 08/22/18 Range/Units 19:02 Sodium 132 L (137-145) mmol/L Potassium 6.0 H (3.5-5.1) mmol/L Chloride 99 (98-107) mmol/L Carbon Dioxide 24 (22-30) mmol/L BUN 50 H (9-20) mg/dL Creatinine 1.41 H (0.66-1.25) mg/dL Glucose 117 H (74-99) mg/dL Calcium 8.5 (8.4-10.2) mg/dL Adrenal panel 03/18/19 Range/Units 19:02 Sodium 132 L (137-145) mmol/L Potassium 6.0 H (3.5-5.1) mmol/L Chloride 99 (98-107) mmol/L Carbon Dioxide 24 (22-30) mmol/L BUN 50 H (9-20) mg/dL Creatinine 1.41 H (0.66-1.25) mg/dL Glucose 117 H (74-99) mg/dL Calcium 8.5 (8.4-10.2) mg/dL Total Bilirubin 4.3 H (0.2-1.3) mg/dL AST 141 H (17-59) U/L ALT 110 H (21-72) U/L Alkaline Phosphatase 842 H (38-126) U/L Total Protein 6.3 (6.3-8.2) g/dL Albumin 3.0 L (3.5-5.0) g/dL
[2018-08-23 19:54] LABS: Hepatitis A Antibody IgM Non-Reactive (Non-Reactive); Hepatitis B Core IgM Non-Reactive (Non-Reactive)
[2018-08-23] MEDS: ONDANSETRON 4 MG/2 ML VIAL IVP PRN (22:10)
[2018-08-24] MEDS: SODIUM CHLORIDE 0.9% 1,000 ML IV SCH ×3 (04:05→19:32)
[2018-08-24] MEDS: AMPICILLIN-SULBACTAM 3 GM in SODIUM CHLORIDE 0.9% 100 ML IVPB SCH ×4 (04:05→21:49)
[2018-08-24 08:46] LABS: Basophils % (A) 0 %; Eosinophils # (A) 0.1 k/uL (0-0.7); Eosinophils % (A) 1 %; HCT 35.5 % (39.0-53.0); Hypochromasia Slight; Lymphocytes # (A) 0.3 k/uL (1.0-4.8); Lymphocytes % (A) 2 %; MCH 31.8 pg (25.0-35.0); MCHC 31.1 g/dL (31.0-37.0); MCV 102.5 fL (80.0-100.0); Macrocytosis Slight; Mean Platelet Volume 6.7; Monocytes % (A) 6 %; Neutrophils # (A) 14.3 k/uL (1.3-7.7); Neutrophils % (A) 90 %; Platelet Count 391 k/uL (150-450); RBC 3.46 m/uL (4.30-5.90); RDW 13.3 % (11.5-15.5); WBC 15.8 k/uL (3.8-10.6)
[2018-08-24 09:00] LABS: Albumin 2.5 g/dL (3.5-5.0); Calcium 8.1 mg/dL (8.4-10.2); Total Bilirubin 6.4 mg/dL (0.2-1.3); Total Protein 5.5 g/dL (6.3-8.2)
[2018-08-24] MEDS: ACETAMINOPHEN TAB 325 MG TAB PO SCH (09:16)
[2018-08-24 10:17] LABS: INR 2.2 (<1.2); Prothrombin Time 21.2 sec (9.0-12.0)
[2018-08-24] MEDS ORDERED: PHYTONADIONE ORAL 5 MG/5 ML ORAL.SYRG PO STA (11:40)
--- NOTE | 2018-08-24 11:56 | P.CONS ---
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 Patient presents with multiple concerns weakness decreased appetite 25 pound unintentional weight loss over the last 1 month new- onset of jaundice elevated liver enzymes as well as a few days of right upper quadrant abdominal pain combined with high-grade fevers greater than 101.8 1 month ago; fever and pain lasted for a few days and subsided. He reports darker colored urine at times hematuria, but denies acholic stools. Increased abdominal girth. Computed tomography scan abdomen and pelvis as well as ultraso und of the abdomen reported cholelithiasis without dilated ducts. US could not exclude liver tumor. No obvious focal liver defect or pancreatic mass. New- onset of ascites. Patient has no history of known liver disorders. No history of alcoholism hepatitis. Admission INR 9.6 received vitamin K currently 2.2. Last dose of Coumadin 3-4 days ago. No recurrent fevers. Hepatitis screen nonreactive. LFTs March 2017 normal. Total bilirubin 3.8 presently 6.4. AST 161 presently 146. ALT 11 5 presently 103. AP 866 presently 733. White count 19.8 on admission currently 15.8. Hemoglobin 11. MCV 102. Platelet 391. No changes in medications. No recent travels or sick contacts. Additional chemistry sodium 132 presently 139. Potassium 5.8 increased to 6 presently 5. BUN 49. Creatinine 1.5. Lipase 83 increased to 312 a few days ago. Urinalysis large blood moderate leukocyte esterase and urine WBC. Receiving IV antibiotics. Review of Systems Constitutional: Reported fever chills sweats one month ago denies, sweats, weight gain, 25 pound weight loss unintentional 1 month. HEENT: Negative for migraines, blurred vision or loss, earaches, drainage, tinnitus, oral mucosal lesions, dysphagia, or odynophagia. Cardiac: Negative for chest pain, arrhythmias, or palpitation. Respiratory: Negative for shortness of breath, hemoptysis, cough, or sputum production. Gastrointestinal: See HPI for pertinent findings. Genitourinary: Negative for hematuria, urgency, frequency, polyuria, dysuria, or penile discharge. Musculoskeletal: Negative for muscle aches, swelling, arthritis, and arthralgias. Neurologic: Negative for stroke or TIA. Endocrine: Negative for thyroid problems. Skin: Negative for rash or itching. Psychiatric: Negative history for depression and anxiety Past Medical History Past Medical History: Coronary Artery Disease (CAD), Hypertension, Prostate Disorder, Pulmonary Embolus (PE), Vascular Disorder Additional Past Medical History / Comment(s): prostate ca received 38 radiation treatment and Leupron, bilateral PE 2004 treated for a total 3 year with coumadin, psoriasis History of Any Multi-Drug Resistant Organisms: None Reported Past Surgical History: Orthopedic Surgery Additional Past Surgical History / Comment(s): Hx. stent right groin, and cardiac Past Anesthesia/Blood Transfusion Reactions: No Reported Reaction Past Psychological History: No Psychological Hx Reported Smoking Status: Former smoker Past Alcohol Use History: None Reported Past Drug Use History: None Reported Medications and Allergies Home Medications Medication Instructions Recorded Confirmed Type Telmisartan [Micardis] 20 mg PO DAILY 12/17/14 08/22/18 History Vit C/E/Zn/Coppr/Lutein/Zeaxan 1 tab PO DAILY 12/20/14 08/22/18 History [Preservision Areds 2 Softgel] Acetaminophen [Tylenol] 325 mg PO DAILY 08/22/18 08/22/18 History Cholecalciferol [Vitamin D3] 1,000 unit PO DAILY 08/22/18 08/22/18 History Cyanocobalamin (Vitamin B-12) 1,000 mcg PO DAILY 08/22/18 08/22/18 History [Vitamin B-12] Warfarin Sodium 5 mg PO DAILY 08/22/18 08/22/18 History Apixaban [Eliquis] 5 mg PO BID #60 tab 08/24/18 Rx Allergies Allergy/AdvReac Type Severity Reaction Status Date / Time No Known Allergies Allergy Verified 08/22/18 18:30 Physical Exam Vitals: Vital Signs Temp Pulse Resp BP Pulse Ox 08/24/18 04:56 98.3 F 77 16 123/77 95 08/23/18 21:00 98.4 F 84 16 123/61 95 08/23/18 12:19 98.0 F 78 16 115/98 96 Intake and Output 08/23/18 08/24/18 08/24/18 22:59 06:59 14:59 Intake Total 350 590 Output Total 400 Balance 350 190 Intake: Intake, IV Titration 350 Amount Sodium Chloride 0.9% 1, 350 000 ml @ 100 mls/hr IV . Q10H [facility], [facility]–1983 Rx#:[id number] Oral 590 Output: Urine 400 Other: Voiding Method Toilet Toilet Toilet Urinal Urinal Urinal General appearance: The patient is alert, oriented, in no acute distress. Visibly jaundice. HET: Head is normocephalic and atraumatic. Pupils are equal and reactive. Sclerae icterus. Oropharynx is clear without lesions. Neck: Supple without lymphadenopathy. Trachea midline. Heart: S1 S2. Regular rate and rhythm. Lungs: No crackles or wheezes are heard. Abdomen: Soft, nontender, distended with moderate ascites with bowel sounds. No peritoneal signs. No palpable organomegaly or masses. Extremities: Normal skin color and turgor. No cyanosis, rash, ulceration, clubbing, or edema. Radial and pedal pulses are 2/4 bilaterally. Neurological: No focal deficits. Strength and sensation are grossly intact. Results CBC & Chem 7: 08/24/18 08:06 08/25/18 08:12 Labs: Abnormal Lab Results - Last 24 Hours (Table) 08/23/18 08/24/18 08/24/18 Range/Units 07:50 08:06 08:06 WBC 15.5 H 15.8 H (3.8-10.6) k/uL RBC 3.74 L 3.46 L (4.30-5.90) m/uL Hgb 11.7 L 11.0 L (13.0-17.5) gm/dL Hct 38.1 L 35.5 L (39.0-53.0) % MCV 102.1 H D 102.5 H (80.0-100.0) fL MCHC 30.6 L (31.0-37.0) g/dL Neutrophils # 13.5 H 14.3 H (1.3-7.7) k/uL Lymphocytes # 0.4 L 0.3 L (1.0-4.8) k/uL Monocytes # 1.2 H (0-1.0) k/uL PT (9.0-12.0) sec INR (<1.2) BUN 39 H (9-20) mg/dL Glucose 116 H (74-99) mg/dL Calcium 8.1 L (8.4-10.2) mg/dL Total Bilirubin 6.4 H (0.2-1.3) mg/dL AST 146 H (17-59) U/L ALT 103 H (21-72) U/L Alkaline Phosphatase 733 H (38-126) U/L Total Protein 5.5 L (6.3-8.2) g/dL Albumin 2.5 L (3.5-5.0) g/dL 08/24/18 Range/Units 09:23 WBC (3.8-10.6) k/uL RBC (4.30-5.90) m/uL Hgb (13.0-17.5) gm/dL Hct (39.0-53.0) % MCV (80.0-100.0) fL MCHC (31.0-37.0) g/dL Neutrophils # (1.3-7.7) k/uL Lymphocytes # (1.0-4.8) k/uL Monocytes # (0-1.0) k/uL PT 21.2 H (9.0-12.0) sec INR 2.2 H (<1.2) BUN (9-20) mg/dL Glucose (74-99) mg/dL Calcium (8.4-10.2) mg/dL Total Bilirubin (0.2-1.3) mg/dL AST (17-59) U/L ALT (21-72) U/L Alkaline Phosphatase (38-126) U/L Total Protein (6.3-8.2) g/dL Albumin (3.5-5.0) g/dL Microbiology - Last 24 Hours (Table) 08/22/18 22:00 Urine Culture - Final Urine,Voided 08/22/18 21:30 Blood Culture - Preliminary Blood No Growth after [address] scan - abdomen: report reviewed (Dr. Ochoa) US - abdomen: report reviewed (Dr. Ochoa) Assessment and Plan (1) Jaundice Narrative/Plan: 82-year-old gentleman presents with multiple complaints over the last 4-5 weeks including unintentional 25 pound weight loss, right upper quadrant abdominal pain combined with 2-3 day fever greater than 101 darker colored urine hematuria with new onset of jaundice and abdominal ascites leukocytosis. Presentation is multifactorial. Component of possible underlying UTI as well as an underlying cholangitis cannot be excluded. CT imaging and ultrasound report cholelithiasis without biliary duct dilatation LFTs are worsening warfarin-induced coagulopathy corrected. CT reported ascites. Differentials to consider but not limited to possible underlying choledocholithiasis, biliary stricture, neoplasm, and or chronic liver disease can not be excluded but felt to be less likely. Current Visit: Yes Status: Acute Code(s): R17 - UNSPECIFIED JAUNDICE SNOMED Code(s): 53547596 (2) Elevated liver enzymes Current Visit: Yes Status: Acute Code(s): R74.8 - ABNORMAL LEVELS OF OTHER SERUM ENZYMES SNOMED Code(s): 716959362 (3) Ascites Current Visit: Yes Status: Acute Code(s): R18.8 - OTHER ASCITES SNOMED Code(s): 177946117 (4) Warfarin-induced coagulopathy Current Visit: Yes Status: Acute Code(s): D68.32 - HEMORRHAGIC DISORD D/T EXTRINSIC CIRCULATING ANTICOAGULANTS; T45.515A - ADVERSE EFFECT OF ANTICOAGULANTS, INITIAL ENCOUNTER SNOMED Code(s): 18322873 (5) Abdominal pain Current Visit: Yes Status: Acute Code(s): R10.9 - UNSPECIFIED ABDOMINAL PAIN SNOMED Code(s): 44607579 (6) Leukocytosis Current Visit: Yes Status: Acute Code(s): D72.829 - ELEVATED WHITE BLOOD CELL COUNT, UNSPECIFIED SNOMED Code(s): 524185291 (7) Hematuria Current Visit: Yes Status: Acute Code(s): R31.9 - HEMATURIA, UNSPECIFIED SNOMED Code(s): 06413311 (8) H/O prostate cancer Current Visit: Yes Status: Acute Code(s): Z85.46 - PERSONAL HISTORY OF MALIGNANT NEOPLASM OF PROSTATE SNOMED Code(s): 923612369 (9) History of pulmonary embolism Current Visit: Yes Status: Acute Code(s): Z86.711 - PERSONAL HISTORY OF PULMONARY EMBOLISM SNOMED Code(s): 679223878 (10) H/O deep venous thrombosis Current Visit: Yes Status: Acute Code(s): Z86.718 - PERSONAL HISTORY OF OTHER VENOUS THROMBOSIS AND EMBOLISM SNOMED Code(s): 332757616 Plan: 1. Will obtain serologic workup for chronic liver disease including AFP CEA and CA-19-9 markers. 2. Therapeutic diagnostic paracentesis scheduled for tomorrow pending correction of underlying coagulopathy. Will discuss with IR. Present INR is 2.2 we'll give vitamin K 2.5 mg 1 today. 3. MRCP/MRI liver w/wo contrast after paracentesis is performed. Possible ERCP Wednesday pending MRCP review. Daily monitoring of CMP PT/INR CBC. Continue with IV antibiotics. The building cleaning supervisor has discussed the risks, benefits and alternative therapies for the above-mentioned procedure and for both sedation/analgesia as well as necessary blood product administration, if indicated, as they pertain to this patient. The patient has indicated understanding and acceptance of the risks and procedures discussed. Thank you for this kind referral and the opportunity to participate in the care of your patient. This consultation was discussed with Dr. Ochoa. The impr ession and plan of care have been directed as dictated.
--- NOTE | 2018-08-24 13:50 | US ---
EXAMINATION TYPE: US abdomen limited DATE OF EXAM: 08/24/2018 COMPARISON: CT from 2 days ago. CLINICAL HISTORY: assess fluid please. Ascites check Very minimal amount of fluid visualized within ABD, a small 3.1 cm fluid pocket in left flank IMPRESSION: Small amount of ascites is identified in the left flank which correlates with recent CT. Ascites not sufficient to warrant safe paracentesis for therapeutic purposes currently.
[2018-08-24 16:55] LABS: Cancer Antigen 19-9 24.5 U/mL (0.0-34.9)
--- NOTE | 2018-08-24 17:15 | P.PN ---
Subjective Progress Note Date: 08/24/18 Principal diagnosis: Right upper quadrant pain, nausea, poor appetite This is a very pleasant 82-year-old gentleman who follows with Dr. Montalvo as his primary care physician. He has a history of coronary artery disease with previous stent placement, hypertension, pulmonary emboli, DVT on warfarin, prostate cancer status post radiation, previous smoking history. He was seen a nd evaluated yesterday by Dr. Montalvo in the office. He had complaints of weight loss, poor appetite, hematuria, abdominal pain and generalized weakness and fatigue. Lab work and CAT scan of the abdomen and pelvis were ordered. The patient was found to have a high INR of 8.8 and he was directed to the emergency room. CAT scan of the abdomen revealed probable tiny calcified gallstones unchanged compared to previous. There is new mild to moderate abdominal ascites noted. Ultrasound of the gallbladder revealed possible small gallstones. No dilated ducts. There was a heterogeneity in the liver without discrete mass identified. There is some variable fatty infiltration and a tumor could not be entirely excluded. Computed tomography scan with contrast was recommended. White count 19.1. Hemoglobin 12.7. INR down to 4.3. Sodium 132. Potassium 6.0. Creatinine 1.41. Urinalysis with moderate leukocytes, large blood. Culture is pending. The patient is seen today in the dictation on the regular medical floor. He is awake and alert in no acute distress. No shortness of breath, cough or congestion. No chills or night sweats. Abdominal discomfort has resolved. He is currently afebrile. Maintaining O2 saturations in the mid 90s on room air. He is hemodynamically stable. He is currently on Unasyn. 0.9 normal saline at 100 ML's per hour. He did receive one dose of vitamin K. On 08/24/2018 patient seen in follow-up on medical surgical floor. He is awake and alert, in no acute distress, his abdomen is soft and nontender, and platelets of abdominal pain today. Today's labs have been reviewed, LFTs are, total bilirubin is 6.4. Ultrasound showed small amount of ascites does not warrant paracentesis. Today's INR is 2.2, white blood cell count remains elevated at 15.8. Patient is afebrile, room air pulse ox is 94%. Urine and blood culture show no growth. Hepatitis panel was negative. Urinalysis was infected on admission, currently on antibiotic coverage in the form of Unasyn, was 0.9 normal saline at a rate of 100 ML per hour, lung sounds are clear. Pedro leonard is being scheduled for MRCP tomorrow. Alpha-fetoprotein, alpha-1 antitrypsin, and other labs are pending. Objective - Vital Signs Vital signs: Vital Signs Temp 97.8 F 08/24/18 11:53 Pulse 90 08/24/18 11:53 Resp 17 08/24/18 11:53 BP 101/67 08/24/18 11:53 Pulse Ox 94 L 08/24/18 11:53 Intake & Output 08/23/18 08/24/18 08/24/18 18:59 06:59 18:59 Intake Total 850 940 Output Total 400 Balance 850 540 Weight 92.079 kg Intake: IV 100 Ampicillin-Sulbactam 3 gm 100 In Sodium Chloride 0.9% 100 ml @ 200 mls/hr IVPB ONCE STA Rx#:[id number] Intake, IV Titration 750 350 Amount Sodium Chloride 0.9% 1, 750 350 000 ml @ 100 mls/hr IV . Q10H [facility] Rx#:[id number] Oral 590 Output: Urine 400 Other: Voiding Method Toilet Toilet Toilet Urinal Urinal Urinal - Exam GENERAL EXAM: Alert, pleasant, 82-year-old white male comfortable in no apparent distress. HEAD: Normocephalic/atraumatic. EYES: Normal reaction of pupils, equal size. Conjunctiva pink, sclera white. NOSE: Clear with pink turbinates. THROAT: No erythema or exudates. NECK: No masses, no JVD, no thyroid enlargement, no adenopathy. CHEST: No chest wall deformity. Symmetrical expansion. LUNGS: Equal air entry with no crackles, wheeze, rhonchi or dullness. CVS: Regular rate and rhythm, normal S1 and S2, no gallops, no murmurs, no rubs ABDOMEN: Soft, distended, nontender. No hepatosplenomegaly, normal bowel sounds, no guarding or rigidity. EXTREMITIES: No clubbing, no edema, no cyanosis, 2+ pulses and upper and lower extremities. MUSCULOSKELETAL: Muscle strength and tone normal. SPINE: No scoliosis or deformity SKIN: No rashes CENTRAL NERVOUS SYSTEM: Alert and oriented -3. No focal deficits, tone is normal in all 4 extremities. PSYCHIATRIC: Alert and oriented -3. Appropriate affect. Intact judgment and insight. - Labs CBC & Chem 7: 08/24/18 08:06 08/24/18 08:06 Labs: Abnormal Lab Results - Last 24 Hours (Table) 08/24/18 08/24/18 08/24/18 Range/Units 08:06 08:06 08:06 WBC 15.8 H (3.8-10.6) k/uL RBC 3.46 L (4.30-5.90) m/uL Hgb 11.0 L (13.0-17.5) gm/dL Hct 35.5 L (39.0-53.0) % MCV 102.5 H (80.0-100.0) fL Neutrophils # 14.3 H (1.3-7.7) k/uL Lymphocytes # 0.3 L (1.0-4.8) k/uL PT (9.0-12.0) sec INR (<1.2) BUN 39 H (9-20) mg/dL Glucose 116 H (74-99) mg/dL Calcium 8.1 L (8.4-10.2) mg/dL Total Bilirubin 6.4 H (0.2-1.3) mg/dL AST 146 H (17-59) U/L ALT 103 H (21-72) U/L Alkaline Phosphatase 733 H (38-126) U/L Total Protein 5.5 L (6.3-8.2) g/dL Albumin 2.5 L (3.5-5.0) g/dL Carcinoembryonic Ag 15.4 H (0.0-4.9) ng/mL 08/24/18 Range/Units 09:23 WBC (3.8-10.6) k/uL RBC (4.30-5.90) m/uL Hgb (13.0-17.5) gm/dL Hct (39.0-53.0) % MCV (80.0-100.0) fL Neutrophils # (1.3-7.7) k/uL Lymphocytes # (1.0-4.8) k/uL PT 21.2 H (9.0-12.0) sec INR 2.2 H (<1.2) BUN (9-20) mg/dL Glucose (74-99) mg/dL Calcium (8.4-10.2) mg/dL Total Bilirubin (0.2-1.3) mg/dL AST (17-59) U/L ALT (21-72) U/L Alkaline Phosphatase (38-126) U/L Total Protein (6.3-8.2) g/dL Albumin (3.5-5.0) g/dL Carcinoembryonic Ag (0.0-4.9) ng/mL Microbiology - Last 24 Hours (Table) 08/22/18 22:00 Urine Culture - Final Urine,Voided 08/22/18 21:30 Blood Culture - Preliminary Blood No Growth after 24 hours Assessment and Plan Plan: Assessment: #1 Unexplained weight loss with abdominal discomfort of unclear etiology. Leukocytosis. Elevated LFTs, alk phos, bilirubin and lipase, jaundice. CT imaging and ultrasound report cholelithiasis without biliary duct dilatation. Biliary obstruction is suspected, patient is awaiting MRCP #2 Hematuria secondary to supratherapeutic INR. Suspect urinary tract infection. #3 Coagulopathy with an INR of 8.8 on admission, currently 4.3. Received vitamin K 10 mg 1. #4 History of pulmonary embolism/DVT. #5 Hypertension. #6 History of prostate cancer status post radiation and Lupron. #7 Chronic venous stasis of the left lower extremity with previous venous ulcer. #8 History of coronary artery disease with previous stent placement. #9 Peripheral vascular disease with previous stent placement to the right femoral artery. Plan: Continue with current medical treatment, patient is awaiting MRCP, GI service is following, evident on hold, INR is down to 2.2. We'll continue with current antibiotic coverage, we'll order CEA, and CA 199. Continue to follow I performed a history & physical examination of the patient and discussed their management with my nurse practitioner, Cheli Hernandes. I reviewed the nurse practitioner's note and agree with the documented findings and plan of care. Lung sounds are positive for clear breath sounds. The findings and the impression was discussed with the patient. I attest to the documentation by the nurse practitioner. Time with Patient: Less than 30
--- NOTE | 2018-08-24 18:44 | P.PN ---
Subjective Interval history:82-year-old wasn't gentleman came in with compensative hematuria and highly elevated INR of 8.8. PCP Dr. Montalvo sent in to the [facility] because of highly elevated INR. Patient has not been eating well because of loss of appetite patient has ink and weight loss because of poor appetite. Patient believes his poor appetite is secondary to right upper quadrant abdominal pain patient appears to have gallstones which were wrapped present in the previous imagings although there is no evidence of cholecystitis at this time. Patient urine analysis showed highly elevated white blood cell count patient was comparing of fever chills had a fever of 101.3 couple days ago. Patient had hematuria which was was probably secondary to UTI as well as elevated INR. Patient is on Coumadin for multiple DVTs in the past patient the serum creatinine is elevated to 1.8 baseline around 1.5 couple years ago patient is also found to be hyperkalemic hyponatremic. Patient was started on IV fluids and 100 mL per hour patient was given Unasyn which will continue at this time which is ill be helpful for his UTI as well as gallbladder disease. General surgery was consulted ultrasound did show gallstones. Patient was given 1 dose of vitamin K in ER. Patient does comparing of constipation denied any urinary retention denied any dysuria denied any cough runny nose nausea vomiting. Patient's right upper quadrant abdominal pain is on and off cannot related to food. 08/24/18 maintained on IV antibiotic .Positive nausea and vomiting of food particles after supper last night. Positive bowel movement yesterday, no diarrhea. Reports "internal abdominal pain that fluctuates with positioning, pressure but no pain to touch/palpitation". Evaluated by surgery with recommendations noted. INR/labs pending. GI consult in place with recommendations pending. Abdominal ultrasound pending. Afebrile. Objective - Vital Signs Vital signs: Vital Signs Temp 98.3 F 08/24/18 04:56 Pulse 77 08/24/18 04:56 Resp 16 08/24/18 04:56 BP 123/77 08/24/18 04:56 Pulse Ox 95 08/24/18 04:56 Intake & Output 08/23/18 08/24/18 08/24/18 18:59 06:59 18:59 Intake Total 850 940 Output Total 400 Balance 850 540 Weight 92.079 kg Intake: IV 100 Ampicillin-Sulbactam 3 gm 100 In Sodium Chloride 0.9% 100 ml @ 200 mls/hr IVPB ONCE STA Rx#:[id number] Intake, IV Titration 750 350 Amount Sodium Chloride 0.9% 1, 750 350 000 ml @ 100 mls/hr IV . Q10H [facility] Rx#:[id number] Oral 590 Output: Urine 400 Other: Voiding Method Toilet Toilet Toilet Urinal Urinal Urinal - Exam GENERAL: The patient is alert and oriented x3, not in any acute distress. Jaundiced. HEENT: Pupils are round and equally reacting to light. EOMI. Scleral icterus. Normocephalic, atraumatic. CARDIOVASCULAR: S1 and S2 present. No murmurs, rubs, or gallops. PULMONARY: Chest is clear to auscultation, no wheezing or crackles. ABDOMEN: Abdomen is distended nontender, moderate ascites, positive bowel sounds. no palpable organomegaly. No guarding EXTREMITIES: No cyanosis, clubbing, or pedal edema. NEUROLOGICAL: Gross neurological examination did not reveal any focal deficits. SKIN: No rashes. - Labs CBC & Chem 7: 08/24/18 08:06 08/24/18 08:06 Labs: Abnormal Lab Results - Last 24 Hours (Table) 08/23/18 08/24/18 08/24/18 Range/Units 07:50 08:06 08:06 WBC 15.5 H 15.8 H (3.8-10.6) k/uL RBC 3.74 L 3.46 L (4.30-5.90) m/uL Hgb 11.7 L 11.0 L (13.0-17.5) gm/dL Hct 38.1 L 35.5 L (39.0-53.0) % MCV 102.1 H D 102.5 H (80.0-100.0) fL MCHC 30.6 L (31.0-37.0) g/dL Neutrophils # 13.5 H 14.3 H (1.3-7.7) k/uL Lymphocytes # 0.4 L 0.3 L (1.0-4.8) k/uL Monocytes # 1.2 H (0-1.0) k/uL BUN 39 H (9-20) mg/dL Glucose 116 H (74-99) mg/dL Calcium 8.1 L (8.4-10.2) mg/dL Total Bilirubin 6.4 H (0.2-1.3) mg/dL AST 146 H (17-59) U/L ALT 103 H (21-72) U/L Alkaline Phosphatase 733 H (38-126) U/L Total Protein 5.5 L (6.3-8.2) g/dL Albumin 2.5 L (3.5-5.0) g/dL Microbiology - Last 24 Hours (Table) 08/22/18 22:00 Urine Culture - Final Urine,Voided 08/22/18 21:30 Blood Culture - Preliminary Blood No Growth after 24 hours Assessment and Plan Assessment: -Hematuria, secondary to subtherapeutic INR, possible UTI, culture is negative ,intra-abdominal infection although suspicion is low -Cholelithiasis without biliary dilatation, possibly biliary obstruction,stricture. -Acute renal failure on chronic kidney disease stage III from hypertensive nephrosclerosis -Hypovolemic hyponatremia -Hypertension -Hyperkalemia secondary to TONY inhibitor and acute renal failure. TONY inhibitor held -History of DVTs PEs with the [place] filter, Coumadin on hold -History of prostate cancer status post radiation therapy and Lupron -Chronic venous stasis of the left lower extremity with circumferential involvement. -Intravascular disease Plan: Continue on current medication regime , GI prophylaxis, monitoring and symptomatic treatment. Maintain gentle IV fluid hydration. Labs pending. Continue on Unasyn.Coumadin remains on hold.INR pending with more vitamin K as needed. GI consult in place with recommendations pending. Potential diagnostic paracentesis/MRCP. Eliquis prescription sent to pharmacy to verify for outpatient Rx coverage. Thigh high teds. The impression and plan of care has been dictated as directed. : I performed a history and examination of this patient, discussed the same with the dictator. I agree with the dictator's note ,documented as a scribe. Any additional findings or plans will be noted.
--- NOTE | 2018-08-24 19:26 | P.PN ---
Subjective Progress Note Date: 08/24/18 Principal diagnosis: Right upper quadrant pain Patient doing about the same. Mild right upper quadrant pain. Feels bloated. Ultrasound was performed today to evaluate degree of ascites. Dictated as insufficient for therapeutic paracentesis. Patient's INR today 2.2. Bilirubin increased further to 6.4. MRI is currently pending. Objective - Vital Signs Vital signs: Vital Signs Temp 97.8 F 08/24/18 11:53 Pulse 90 08/24/18 11:53 Resp 17 08/24/18 11:53 BP 101/67 08/24/18 11:53 Pulse Ox 94 L 08/24/18 11:53 Intake & Output 08/24/18 08/24/18 08/25/18 06:59 18:59 06:59 Intake Total 940 850 Output Total 400 Balance 540 850 Intake: Intake, IV Titration 350 850 Amount Ampicillin-Sulbactam 3 gm 100 In Sodium Chloride 0.9% 100 ml @ 200 mls/hr IVPB Q6H [facility] Rx#:[id number] Sodium Chloride 0.9% 1, 350 750 000 ml @ 100 mls/hr IV . Q10H [facility] Rx#:[id number] Oral 590 Output: Urine 400 Other: Voiding Method Toilet Toilet Urinal Urinal - Exam Abdomen: Soft, mild distention, mild right upper quadrant tenderness - Labs CBC & Chem 7: 08/24/18 08:06 08/24/18 08:06 Labs: Abnormal Lab Results - Last 24 Hours (Table) 08/24/18 08/24/18 08/24/18 Range/Units 08:06 08:06 08:06 WBC 15.8 H (3.8-10.6) k/uL RBC 3.46 L (4.30-5.90) m/uL Hgb 11.0 L (13.0-17.5) gm/dL Hct 35.5 L (39.0-53.0) % MCV 102.5 H (80.0-100.0) fL Neutrophils # 14.3 H (1.3-7.7) k/uL Lymphocytes # 0.3 L (1.0-4.8) k/uL PT (9.0-12.0) sec INR (<1.2) BUN 39 H (9-20) mg/dL Glucose 116 H (74-99) mg/dL Calcium 8.1 L (8.4-10.2) mg/dL Total Bilirubin 6.4 H (0.2-1.3) mg/dL AST 146 H (17-59) U/L ALT 103 H (21-72) U/L Alkaline Phosphatase 733 H (38-126) U/L Total Protein 5.5 L (6.3-8.2) g/dL Albumin 2.5 L (3.5-5.0) g/dL Carcinoembryonic Ag 15.4 H (0.0-4.9) ng/mL 08/24/18 Range/Units 09:23 WBC (3.8-10.6) k/uL RBC (4.30-5.90) m/uL Hgb (13.0-17.5) gm/dL Hct (39.0-53.0) % MCV (80.0-100.0) fL Neutrophils # (1.3-7.7) k/uL Lymphocytes # (1.0-4.8) k/uL PT 21.2 H (9.0-12.0) sec INR 2.2 H (<1.2) BUN (9-20) mg/dL Glucose (74-99) mg/dL Calcium (8.4-10.2) mg/dL Total Bilirubin (0.2-1.3) mg/dL AST (17-59) U/L ALT (21-72) U/L Alkaline Phosphatase (38-126) U/L Total Protein (6.3-8.2) g/dL Albumin (3.5-5.0) g/dL Carcinoembryonic Ag (0.0-4.9) ng/mL Microbiology - Last 24 Hours (Table) 08/22/18 22:00 Urine Culture - Final Urine,Voided 08/22/18 21:30 Blood Culture - Preliminary Blood No Growth after 24 hours Assessment and Plan (1) Abdominal pain Narrative/Plan: Will discuss with radiology that therapeutic paracentesis was not requested however diagnostic paracentesis is indicated. Await repeat INR tomorrow. Await MRCP. Decision regarding ERCP per GI. Patient's CA-19-9 noted to be normal however CEA level was significantly elevated. We'll follow closely. Current Visit: Yes Status: Acute Code(s): R10.9 - UNSPECIFIED ABDOMINAL PAIN SNOMED Code(s): 31047338
[2018-08-24 20:33] LABS: Iron Saturation 21.36 (15.00-50.00); Protein, Total 5.3 g/dL (6.2-8.2)
[2018-08-24 20:54] LABS: Alpha Fetoprotein, Tumor Mkr <2.5 ng/mL (0.0-7.9)
[2018-08-25] MEDS: HEPARIN SODIUM,PORCINE 5,000 UNIT/ML 1 ML VIAL SQ SCH ×4 (00:35→23:41)
[2018-08-25] MEDS: AMPICILLIN-SULBACTAM 3 GM in SODIUM CHLORIDE 0.9% 100 ML IVPB SCH ×4 (03:53→21:34)
[2018-08-25] MEDS: SODIUM CHLORIDE 0.9% 1,000 ML IV SCH ×3 (07:50→23:33)
[2018-08-25] MEDS: ACETAMINOPHEN TAB 325 MG TAB PO SCH (07:50)
[2018-08-25 09:00] LABS: INR 1.9 (<1.2); Prothrombin Time 18.6 sec (9.0-12.0)
[2018-08-25 09:12] LABS: Albumin 2.7 g/dL (3.5-5.0); Calcium 8.5 mg/dL (8.4-10.2); Potassium 5.3 mmol/L (3.5-5.1); Total Bilirubin 7.1 mg/dL (0.2-1.3); Total Protein 5.8 g/dL (6.3-8.2)
--- NOTE | 2018-08-25 12:21 | P.PN ---
Subjective Progress Note Date: 08/25/18 Principal diagnosis: Jaundice MRI liver/MRCP scheduled today. No complaints. Afebrile. INR improved 1.9. LFTs increased total bilirubin 7.1. AST 172. ALT 118. AP 818. CA-19-9 24.5. CEA 15.4. AFP less than 2.5. GERARDO negative. Objective - Vital Signs Vital signs: Vital Signs Temp 98.4 F 08/25/18 05:00 Pulse 81 08/25/18 05:00 Resp 16 08/25/18 05:00 BP 100/64 08/25/18 05:00 Pulse Ox 94 L 08/25/18 05:00 Intake & Output 08/24/18 08/25/18 08/25/18 18:59 06:59 18:59 Intake Total 850 1340 Output Total 500 Balance 850 840 Weight 99.5 kg Intake: Intake, IV Titration 850 500 Amount Ampicillin-Sulbactam 3 gm 100 200 In Sodium Chloride 0.9% 100 ml @ 200 mls/hr IVPB Q6H [facility] Rx#:[id number] Sodium Chloride 0.9% 1, 750 300 000 ml @ 100 mls/hr IV . Q10H [facility] Rx#:[id number] Oral 840 Output: Urine 500 Other: Voiding Method Toilet Toilet Toilet Urinal Urinal Urinal - Exam General appearance: The patient is alert, oriented, in no acute distress. Jaundice. HET: Head is normocephalic and atraumatic. Pupils are equal and reactive. Oropharynx is clear without lesions. Sclerae icterus. Neck: Supple without lymphadenopathy. Trachea midline. Heart: S1 S2. Regular rate and rhythm. Lungs: No crackles or wheezes are heard. Abdomen: Soft, obese, nontender, bloated with bowel sounds. No peritoneal signs. No palpable organomegaly or masses. Extremities: Normal skin color and turgor. No cyanosis, rash, ulceration, clubbing, or edema. Radial and pedal pulses are 2/4 bilaterally. Neurological: No focal deficits. Strength and sensation are grossly intact. - Labs CBC & Chem 7: 08/24/18 08:06 08/25/18 08:12 Labs: Abnormal Lab Results - Last 24 Hours (Table) 08/22/18 08/24/18 08/25/18 Range/Units 19:02 08:06 08:12 PT 18.6 H (9.0-12.0) sec INR 1.9 H (<1.2) Potassium (3.5-5.1) mmol/L Chloride (98-107) mmol/L Carbon Dioxide (22-30) mmol/L BUN (9-20) mg/dL Glucose (74-99) mg/dL Iron 47 L (65-175) ug/dL TIBC 220 L (228-460) ug/dL Total Bilirubin (0.2-1.3) mg/dL AST (17-59) U/L ALT (21-72) U/L Alkaline Phosphatase (38-126) U/L Total Protein (6.3-8.2) g/dL Total Protein (PEP) 5.3 L (6.2-8.2) g/dL Albumin (3.5-5.0) g/dL Carcinoembryonic Ag 15.4 H (0.0-4.9) ng/mL 08/25/18 Range/Units 08:12 PT (9.0-12.0) sec INR (<1.2) Potassium 5.3 H (3.5-5.1) mmol/L Chloride 109 H (98-107) mmol/L Carbon Dioxide 21 L (22-30) mmol/L BUN 38 H (9-20) mg/dL Glucose 116 H (74-99) mg/dL Iron (65-175) ug/dL TIBC (228-460) ug/dL Total Bilirubin 7.1 H (0.2-1.3) mg/dL AST 172 H (17-59) U/L ALT 118 H (21-72) U/L Alkaline Phosphatase 818 H (38-126) U/L Total Protein 5.8 L (6.3-8.2) g/dL Total Protein (PEP) (6.2-8.2) g/dL Albumin 2.7 L (3.5-5.0) g/dL Carcinoembryonic Ag (0.0-4.9) ng/mL Microbiology - Last 24 Hours (Table) 08/22/18 21:30 Blood Culture - Preliminary Blood No Growth after 48 hours Assessment and Plan (1) Jaundice Narrative/Plan: 82-year-old gentleman presents with multiple complaints over the last 4-5 weeks including unintentional 25 pound weight loss, right upper quadrant abdominal pain combined with 2-3 day fever greater than 101 darker colored urine hematuria with new onset of jaundice and abdominal ascites leukocytosis. Presentation is multifactorial. Component of possible underlying UTI as well as an underlying cholangitis cannot be excluded. CT imaging and ultrasound report cholelithiasis without biliary duct dilatation LFTs are worsening warfarin-induced coagulopathy corrected. CT reported ascites. Differentials to consider but not limited to possible underlying choledocholithiasis, biliary stricture, neoplasm, and or chronic liver disease can not be excluded but felt to be less likely. Current Visit: Yes Status: Acute Code(s): R17 - UNSPECIFIED JAUNDICE SNOMED Code(s): 62525502 (2) Elevated liver enzymes Current Visit: Yes Status: Acute Code(s): R74.8 - ABNORMAL LEVELS OF OTHER SERUM ENZYMES SNOMED Code(s): 365123966 (3) Ascites Current Visit: Yes Status: Acute Code(s): R18.8 - OTHER ASCITES SNOMED Code(s): 312142444 (4) Warfarin-induced coagulopathy Current Visit: Yes Status: Acute Code(s): D68.32 - HEMORRHAGIC DISORD D/T EXTRINSIC CIRCULATING ANTICOAGULANTS; T45.515A - ADVERSE EFFECT OF ANTICOAGULANTS, INITIAL ENCOUNTER SNOMED Code(s): 42938800 (5) Abdominal pain Current Visit: Yes Status: Acute Code(s): R10.9 - UNSPECIFIED ABDOMINAL PAIN SNOMED Code(s): 04913246 (6) Leukocytosis Current Visit: Yes Status: Acute Code(s): D72.829 - ELEVATED WHITE BLOOD CELL COUNT, UNSPECIFIED SNOMED Code(s): 680830478 (7) Hematuria Current Visit: Yes Status: Acute Code(s): R31.9 - HEMATURIA, UNSPECIFIED SNOMED Code(s): 03252319 (8) H/O prostate cancer Current Visit: Yes Status: Acute Code(s): Z85.46 - PERSONAL HISTORY OF MALIGNANT NEOPLASM OF PROSTATE SNOMED Code(s): 864151721 (9) History of pulmonary embolism Current Visit: Yes Status: Acute Code(s): Z86.711 - PERSONAL HISTORY OF PULMONARY EMBOLISM SNOMED Code(s): 357399621 (10) H/O deep venous thrombosis Current Visit: Yes Status: Acute Code(s): Z86.718 - PERSONAL HISTORY OF OTHER VENOUS THROMBOSIS AND EMBOLISM SNOMED Code(s): 642114841 (11) Elevated CEA Current Visit: Yes Status: Acute Code(s): R97.0 - ELEVATED CARCINOEMBRYONIC ANTIGEN [CEA] SNOMED Code(s): 385270706 Plan: 1. CEA elevated underlying malignancy cannot be excluded. 2. Paracentesis canceled not enough fluid per radiology. Present INR is 1.9 we'll give vitamin K 2.5 mg 1 today. 3. MRCP/MRI liver w/wo contrast today if not performed we'll proceed with a CT contrast exam. Possible ERCP possible liver biopsy Wednesday pending MRCP review. Daily monitoring of CMP PT/INR CBC. Continue with IV antibiotics. Assessment and plan a care discussed with Dr. Ochoa
[2018-08-25] MEDS ORDERED: PHYTONADIONE ORAL 5 MG/5 ML ORAL.SYRG PO STA (12:24)
[2018-08-25 12:51] LABS: Ceruloplasmin 34.6 mg/dL (20.0-60.0)
--- NOTE | 2018-08-25 13:05 | P.PN ---
<Kaur Pastor Elsi - Last Filed: 08/25/18 12:59> Subjective Progress Note Date: 08/25/18 CHIEF COMPLAINT: weakness HISTORY OF PRESENT ILLNESS: Patient examined at the bedside. Reports abdominal pain is about the same as yesterday. Patient reports he feels less bloated today. Patient had a small bowel movement yesterday. Denies nausea or vomiting. Patient to undergo MRI today. INR 1.9. Patient to receive vitamin K. Total bilirubin 7.1. AST 172. ALT 118. Alkaline phosphatase 818. PHYSICAL EXAM: VITAL SIGNS: Reviewed. GENERAL: Well-developed in no acute distress. HEENT: No sclera icterus. Extraocular movements grossly intact. Moist buccal mucosa. Head is atraumatic, normocephalic. ABDOMEN: Soft. Distended. Minimal tenderness. Positive bowel sounds. NEUROLOGIC: Alert and oriented. Cranial nerves II through XII grossly intact. ASSESSMENT: 1. Cholelithiasis 2. Hyperbilirubinemia 3. Transaminitis 4. Coagulopathy PLAN: No surgical intervention at this time. Continue workup by GI service. Patient to undergo MRI this afternoon. Possible ERCP/Possible liver biopsy Wednesday per GI services Nurse practitioner note has been reviewed by physician. Signing provider agrees with the documented findings, assessment, and plan of care. Objective - Vital Signs Vital signs: Vital Signs Temp 97.7 F 08/25/18 12:47 Pulse 83 08/25/18 12:47 Resp 17 08/25/18 12:47 BP 121/74 08/25/18 12:47 Pulse Ox 95 08/25/18 12:47 Intake & Output 08/24/18 08/25/18 08/25/18 18:59 06:59 18:59 Intake Total 850 1340 Output Total 500 Balance 850 840 Weight 99.5 kg Intake: Intake, IV Titration 850 500 Amount Ampicillin-Sulbactam 3 gm 100 200 In Sodium Chloride 0.9% 100 ml @ 200 mls/hr IVPB Q6H [facility] Rx#:[id number] Sodium Chloride 0.9% 1, 750 300 000 ml @ 100 mls/hr IV . Q10H [facility] Rx#:[id number] Oral 840 Output: Urine 500 Other: Voiding Method Toilet Toilet Toilet Urinal Urinal Urinal - Labs CBC & Chem 7: 08/24/18 08:06 08/25/18 08:12 Labs: Abnormal Lab Results - Last 24 Hours (Table) 08/22/18 08/24/18 08/25/18 Range/Units 19:02 08:06 08:12 PT 18.6 H (9.0-12.0) sec INR 1.9 H (<1.2) Potassium (3.5-5.1) mmol/L Chloride (98-107) mmol/L Carbon Dioxide (22-30) mmol/L BUN (9-20) mg/dL Glucose (74-99) mg/dL Iron 47 L (65-175) ug/dL TIBC 220 L (228-460) ug/dL Total Bilirubin (0.2-1.3) mg/dL AST (17-59) U/L ALT (21-72) U/L Alkaline Phosphatase (38-126) U/L Total Protein (6.3-8.2) g/dL Total Protein (PEP) 5.3 L (6.2-8.2) g/dL Albumin (3.5-5.0) g/dL Carcinoembryonic Ag 15.4 H (0.0-4.9) ng/mL 08/25/18 Range/Units 08:12 PT (9.0-12.0) sec INR (<1.2) Potassium 5.3 H (3.5-5.1) mmol/L Chloride 109 H (98-107) mmol/L Carbon Dioxide 21 L (22-30) mmol/L BUN 38 H (9-20) mg/dL Glucose 116 H (74-99) mg/dL Iron (65-175) ug/dL TIBC (228-460) ug/dL Total Bilirubin 7.1 H (0.2-1.3) mg/dL AST 172 H (17-59) U/L ALT 118 H (21-72) U/L Alkaline Phosphatase 818 H (38-126) U/L Total Protein 5.8 L (6.3-8.2) g/dL Total Protein (PEP) (6.2-8.2) g/dL Albumin 2.7 L (3.5-5.0) g/dL Carcinoembryonic Ag (0.0-4.9) ng/mL Microbiology - Last 24 Hours (Table) 03/18/19 21:30 Blood Culture - Preliminary Blood No Growth after 48 hours <Dom Downs - Last Filed: 08/25/18 14:40> Subjective As above. Patient apparently can't have the MRI performed today because of the inability to find proper documentation regarding his previously placed Lashawn filter. Patient otherwise feels well. Labs show persistent hyperbilirubinemia. Apparently repeat CAT scan is ordered. Await ERCP. Objective - Vital Signs Vital signs: Vital Signs Temp 97.7 F 08/25/18 12:47 Pulse 83 08/25/18 12:47 Resp 17 08/25/18 12:47 BP 121/74 08/25/18 12:47 Pulse Ox 95 08/25/18 12:47 Intake & Output 08/24/18 08/25/18 08/25/18 18:59 06:59 18:59 Intake Total 850 1340 Output Total 500 Balance 850 840 Weight 99.5 kg 99.5 kg Intake: Intake, IV Titration 850 500 Amount Ampicillin-Sulbactam 3 gm 100 200 In Sodium Chloride 0.9% 100 ml @ 200 mls/hr IVPB Q6H [facility] Rx#:[id number] Sodium Chloride 0.9% 1, 750 300 000 ml @ 100 mls/hr IV . Q10H [facility] Rx#:[id number] Oral 840 Output: Urine 500 Other: Voiding Method Toilet Toilet Toilet Urinal Urinal Urinal - Labs CBC & Chem 7: 08/24/18 08:06 08/25/18 08:12 Labs: Abnormal Lab Results - Last 24 Hours (Table) 08/22/18 08/24/18 08/25/18 Range/Units 19:02 08:06 08:12 PT 18.6 H (9.0-12.0) sec INR 1.9 H (<1.2) Potassium (3.5-5.1) mmol/L Chloride (98-107) mmol/L Carbon Dioxide (22-30) mmol/L BUN (9-20) mg/dL Glucose (74-99) mg/dL Iron 47 L (65-175) ug/dL TIBC 220 L (228-460) ug/dL Total Bilirubin (0.2-1.3) mg/dL AST (17-59) U/L ALT (21-72) U/L Alkaline Phosphatase (38-126) U/L Total Protein (6.3-8.2) g/dL Total Protein (PEP) 5.3 L (6.2-8.2) g/dL Albumin (3.5-5.0) g/dL Albumin (PEP) 2.58 L (3.80-4.90) g/dL Fxugx-1-Mhrikwmad 0.42 H (0.10-0.40) g/dL Carcinoembryonic Ag 15.4 H (0.0-4.9) ng/mL 08/25/18 Range/Units 08:12 PT (9.0-12.0) sec INR (<1.2) Potassium 5.3 H (3.5-5.1) mmol/L Chloride 109 H (98-107) mmol/L Carbon Dioxide 21 L (22-30) mmol/L BUN 38 H (9-20) mg/dL Glucose 116 H (74-99) mg/dL Iron (65-175) ug/dL TIBC (228-460) ug/dL Total Bilirubin 7.1 H (0.2-1.3) mg/dL AST 172 H (17-59) U/L ALT 118 H (21-72) U/L Alkaline Phosphatase 818 H (38-126) U/L Total Protein 5.8 L (6.3-8.2) g/dL Total Protein (PEP) (6.2-8.2) g/dL Albumin 2.7 L (3.5-5.0) g/dL Albumin (PEP) (3.80-4.90) g/dL Fgbzt-2-Jcpbdzgtf (0.10-0.40) g/dL Carcinoembryonic Ag (0.0-4.9) ng/mL Microbiology - Last 24 Hours (Table) 08/22/18 21:30 Blood Culture - Preliminary Blood No Growth after 48 hours Assessment and Plan (1) Abdominal pain Current Visit: Yes Status: Acute Code(s): R10.9 - UNSPECIFIED ABDOMINAL PAIN SNOMED Code(s): 08330872
--- NOTE | 2018-08-25 13:33 | P.PN ---
Subjective Patient was admitted for possible urinary tract infection or ascending cholangitis cholelithiasis possibility of critical gases patient will undergo MRCP tomorrow. Patient had Coumadin, adenopathy which led to hematuria as well which improved patient's INR is 1.9 patient most probably will undergo ERCP tomorrow. Patient doesn't have any significant ascites and clinically he doesn't have significant ascites either. Patient is on Zosyn at this time. Patient bilirubin continue to go up and liver enzymes are still elevated. Patient is afebrile. Patient's serum potassium is 5.3 today. Received a 2.5 mg of vitamin K yesterday and will receive 2.5 more to bring the INR down so that patient can undergo ERCP Constitutional: Denied any fatigue denied any fever. Cardio vascular: denied any chest pain, palpitations Gastrointestinal denied any nausea vomiting Pulmonary: Denied any shortness of breath cough Neurologic denied any new focal deficits All inpatient medications were reviewed and appropriate changes in these medications as dictated in the interval history and assessment and plan. Objective - Vital Signs Vital signs: Vital Signs Temp 97.7 F 08/25/18 12:47 Pulse 83 08/25/18 12:47 Resp 17 08/25/18 12:47 BP 121/74 08/25/18 12:47 Pulse Ox 95 08/25/18 12:47 Intake & Output 08/24/18 08/25/18 08/25/18 18:59 06:59 18:59 Intake Total 850 1340 Output Total 500 Balance 850 840 Weight 99.5 kg Intake: Intake, IV Titration 850 500 Amount Ampicillin-Sulbactam 3 gm 100 200 In Sodium Chloride 0.9% 100 ml @ 200 mls/hr IVPB Q6H [facility] Rx#:[id number] Sodium Chloride 0.9% 1, 750 300 000 ml @ 100 mls/hr IV . Q10H [facility] Rx#:[id number] Oral 840 Output: Urine 500 Other: Voiding Method Toilet Toilet Toilet Urinal Urinal Urinal - Exam PHYSICAL EXAMINATION: GENERAL: The patient is alert and oriented x3, not in any acute distress. Well developed, well nourished. HEENT: Pupils are round and equally reacting to light. EOMI. No scleral icterus. No conjunctival pallor. Normocephalic, atraumatic. No pharyngeal erythema. No thyromegaly. CARDIOVASCULAR: S1 and S2 present. No murmurs, rubs, or gallops. PULMONARY: Chest is clear to auscultation, no wheezing or crackles. ABDOMEN: Abdomen is distended nontender mostly tympanic cannot really assess for shifting dullness MUSCULOSKELETAL: No joint swelling or deformity. EXTREMITIES: No cyanosis, clubbing, or pedal edema. NEUROLOGICAL: Gross neurological examination did not reveal any focal deficits. SKIN: No rashes. - Labs CBC & Chem 7: 08/24/18 08:06 08/25/18 08:12 Labs: Abnormal Lab Results - Last 24 Hours (Table) 08/22/18 08/24/18 08/25/18 Range/Units 19:02 08:06 08:12 PT 18.6 H (9.0-12.0) sec INR 1.9 H (<1.2) Potassium (3.5-5.1) mmol/L Chloride (98-107) mmol/L Carbon Dioxide (22-30) mmol/L BUN (9-20) mg/dL Glucose (74-99) mg/dL Iron 47 L (65-175) ug/dL TIBC 220 L (228-460) ug/dL Total Bilirubin (0.2-1.3) mg/dL AST (17-59) U/L ALT (21-72) U/L Alkaline Phosphatase (38-126) U/L Total Protein (6.3-8.2) g/dL Total Protein (PEP) 5.3 L (6.2-8.2) g/dL Albumin (3.5-5.0) g/dL Carcinoembryonic Ag 15.4 H (0.0-4.9) ng/mL 08/25/18 Range/Units 08:12 PT (9.0-12.0) sec INR (<1.2) Potassium 5.3 H (3.5-5.1) mmol/L Chloride 109 H (98-107) mmol/L Carbon Dioxide 21 L (22-30) mmol/L BUN 38 H (9-20) mg/dL Glucose 116 H (74-99) mg/dL Iron (65-175) ug/dL TIBC (228-460) ug/dL Total Bilirubin 7.1 H (0.2-1.3) mg/dL AST 172 H (17-59) U/L ALT 118 H (21-72) U/L Alkaline Phosphatase 818 H (38-126) U/L Total Protein 5.8 L (6.3-8.2) g/dL Total Protein (PEP) (6.2-8.2) g/dL Albumin 2.7 L (3.5-5.0) g/dL Carcinoembryonic Ag (0.0-4.9) ng/mL Microbiology - Last 24 Hours (Table) 08/22/18 21:30 Blood Culture - Preliminary Blood No Growth after 48 hours Assessment and Plan Plan: Sepsis: Possibility of ascending cholangitis possibility of urinary tract infection is low. Patient is on Unasyn which will be continued hematuria improved INR is 1.9. 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 Improved now -History of DVTs PEs with the Purdy filter, presently holding off on Coumadin because of supratherapeutic INR hematuria -History of prostate cancer status post radiation therapy and Lupron -Chronic venous stasis of the left lower extremity with circumferential involvement. Just below the mid morales area -Intravascular disease -Patient will need pharmacologic GI prophylaxis
[2018-08-25 13:59] LABS: Albumin 2.58 g/dL (3.80-4.90); Gamma Globulin 0.93 g/dL (0.70-1.50)
[2018-08-25] MEDS: IOPAMIDOL-300 CONTRAST 30 ML VIAL (ORAL USE) PO PRN ×2 (14:57→16:02)
--- NOTE | 2018-08-25 16:54 | CT ---
EXAMINATION TYPE: CT abdomen pelvis w con DATE OF EXAM: 08/25/2018 COMPARISON: 08/22/2018 HISTORY: Abdominal pain and jaundice. CT DLP: 1703 mGycm Automated exposure control for dose reduction was used. TECHNIQUE: Helical acquisition of images was performed from the lung bases through the pelvis. CONTRAST: Performed with Oral Contrast and with IV Contrast, patient injected with 100ml mL of Isovue 300. FINDINGS: Lung bases are clear of consolidation. There is Basilar subsegmental atelectasis. There is moderate a scites. There are numerous hypodense liver foci that measure up to almost 3 cm. Gallbladder appears n ormal. Stomach is large. There is wall thickening of a gastric antrum. Spleen appears normal. There i s no pancreatic mass. There is no adrenal mass. Kidneys show satisfactory contrast opacification. There is inferior vena ca va filter noted. There is no retroperitoneal adenopathy. There is no hydronephrosis. Ureters are not dilated. There is no evidence of a bowel obstruction. There is oral contrast in the large bowel. Bladder diste nds smoothly. Lumbar spine is intact. I see no bony destructive process. The bony pelvis appears inta ct. IMPRESSION: NUMEROUS HYPODENSE LIVER LESIONS ARE SUSPICIOUS FOR METASTATIC DISEASE. THERE IS WALL THICKENING OF THE GASTRIC ANTRUM THAT IS SUSPICIOUS FOR GASTRIC MALIGNANCY. THE WALL ME ASURES UP TO 1.5 CM. THERE IS PROBABLY A GASTRIC OUTLET OBSTRUCTION DUE TO CONSTRICTING LESION. MODERATE ASCITES UNCHANGED. THERE IS INCREASED ATELECTASIS RIGHT LUNG BASE COMPARED TO RECENT EXAM.
[2018-08-25] MEDS: PANTOPRAZOLE 40 MG/10 ML VIAL IVP SCH (21:34)
[2018-08-26] MEDS: AMPICILLIN-SULBACTAM 3 GM in SODIUM CHLORIDE 0.9% 100 ML IVPB SCH ×3 (05:09→17:28)
[2018-08-26] MEDS: PANTOPRAZOLE 40 MG/10 ML VIAL IVP SCH (08:19)
[2018-08-26] MEDS: HEPARIN SODIUM,PORCINE 5,000 UNIT/ML 1 ML VIAL SQ SCH ×2 (08:19→17:27)
[2018-08-26] MEDS: traMADol 50 MG TAB PO SCH (08:20)
[2018-08-26 08:32] LABS: INR 1.8 (<1.2); Prothrombin Time 17.5 sec (9.0-12.0)
[2018-08-26 08:40] LABS: Albumin 2.5 g/dL (3.5-5.0); Calcium 8.3 mg/dL (8.4-10.2); Potassium 5.1 mmol/L (3.5-5.1); Total Bilirubin 7.4 mg/dL (0.2-1.3); Total Protein 5.6 g/dL (6.3-8.2)
[2018-08-26 11:47] LABS: Liver/Kidney Microsome Antibod 2.3 UNITS (<=20)
[2018-08-26] MEDS: SODIUM CHLORIDE 0.9% 1,000 ML IV SCH (12:47)
[2018-08-26] MEDS ORDERED: PROPOFOL 10 MG/ML 20 ML VIAL IV ONE (13:59)
[2018-08-26] MEDS ORDERED: LIDOCAINE 1% INJ 10MG/ML (20 ML MDV) ONE (13:59)
--- NOTE | 2018-08-26 14:00 | P.PN ---
Subjective Progress Note Date: 08/26/18 Principal diagnosis: Right upper quadrant pain Patient had his repeat CAT scan performed yesterday. CAT scan reportedly does reveal lesions in the liver suspicious for liver metastasis. Also noted on the CAT scan is gastric distention with thickening of the antrum. He is scheduled for upper endoscopy today. Feels bloated. Yesterday evening apparently he had bad nausea. Objective - Vital Signs Vital signs: Vital Signs Temp 97.5 F L 08/26/18 11:45 Pulse 88 08/26/18 11:45 Resp 16 08/26/18 11:45 BP 122/76 08/26/18 11:45 Pulse Ox 96 08/26/18 11:45 Intake & Output 08/25/18 08/26/18 08/26/18 18:59 06:59 18:59 Intake Total 300 200 500 Output Total 125 100 300 Balance 175 100 200 Weight 99.5 kg 104.5 kg Intake: Intake, IV Titration 300 200 500 Amount Ampicillin-Sulbactam 3 gm 200 100 In Sodium Chloride 0.9% 100 ml @ 200 mls/hr IVPB Q6H [facility] Rx#:[id number] Sodium Chloride 0.9% 1, 100 100 500 000 ml @ 100 mls/hr IV . Q10H [facility] Rx#:[id number] Oral 0 0 Tube Feeding 0 0 Blood Product 0 0 Other 0 Output: Urine 125 100 300 Other: Voiding Method Urinal Urinal # Voids 1 1 - Exam Abdomen: Soft, mild distention, nontender - Labs CBC & Chem 7: 08/24/18 08:06 08/26/18 08:13 Labs: Abnormal Lab Results - Last 24 Hours (Table) 08/22/18 08/26/18 08/26/18 Range/Units 19:02 08:13 08:13 PT 17.5 H (9.0-12.0) sec INR 1.8 H (<1.2) Chloride 111 H (98-107) mmol/L Carbon Dioxide 19 L (22-30) mmol/L BUN 41 H (9-20) mg/dL Glucose 111 H (74-99) mg/dL Calcium 8.3 L (8.4-10.2) mg/dL Total Bilirubin 7.4 H (0.2-1.3) mg/dL AST 172 H (17-59) U/L ALT 125 H (21-72) U/L Alkaline Phosphatase 838 H (38-126) U/L Total Protein 5.6 L (6.3-8.2) g/dL Albumin 2.5 L (3.5-5.0) g/dL Albumin (PEP) 2.58 L (3.80-4.90) g/dL Dreub-8-[id number] 0.42 H (0.10-0.40) g/dL Microbiology - Last 24 Hours (Table) 08/22/18 21:30 Blood Culture - Preliminary Blood No Growth after 72 hours Assessment and Plan (1) Abdominal pain Narrative/Plan: Await upper endoscopy. Patient may subsequently require gastrojejunostomy if significant gastric outlet obstruction is identified. Current Visit: Yes Status: Acute Code(s): R10.9 - UNSPECIFIED ABDOMINAL PAIN SNOMED Code(s): 08926652
[2018-08-26] MEDS ORDERED: IV FLUID CONTINUATION 700 ML IV ONE (14:04)
--- NOTE | 2018-08-26 15:10 | P.PN ---
Subjective Patient was admitted for possible urinary tract infection or ascending cholangitis cholelithiasis possibility of critical gases patient will undergo MRCP tomorrow. Patient had Coumadin, adenopathy which led to hematuria as well which improved patient's INR is 1.9 patient most probably will undergo ERCP tomorrow. Patient doesn't have any significant ascites and clinically he doesn't have significant ascites either. Patient is on Zosyn at this time. Patient bilirubin continue to go up and liver enzymes are still elevated. Patient is afebrile. Patient's serum potassium is 5.3 today. Received a 2.5 mg of vitamin K yesterday and will receive 2.5 more to bring the INR down so that patient can undergo ERCP 08/26/2018 Patient had a CAT scan yesterday and strep MRCP which showed multiple lesions suspicious for malignancy and also thickening of the gastric antrum. Patient will undergo upper GI endoscopy and will order alpha-fetoprotein findings were discussed with the patient. Constitutional: Denied any fatigue denied any fever. Cardio vascular: denied any chest pain, palpitations Gastrointestinal denied any nausea vomiting Pulmonary: Denied any shortness of breath cough Neurologic denied any new focal deficits All inpatient medications were reviewed and appropriate changes in these medications as dictated in the interval history and assessment and plan. Objective - Vital Signs Vital signs: Vital Signs Temp 98.0 F 08/26/18 14:49 Pulse 100 08/26/18 14:49 Resp 16 08/26/18 14:49 BP 145/74 08/26/18 14:49 Pulse Ox 93 L 08/26/18 14:49 Intake & Output 08/25/18 08/26/18 08/26/18 18:59 06:59 18:59 Intake Total 590 610 3974 Output Total 125 100 300 Balance 175 100 800 Weight 99.5 kg 104.5 kg Intake: IV 600 Intake, IV Titration 300 200 500 Amount Ampicillin-Sulbactam 3 gm 200 100 In Sodium Chloride 0.9% 100 ml @ 200 mls/hr IVPB Q6H [facility] Rx#:[id number] Sodium Chloride 0.9% 1, 100 100 500 000 ml @ 100 mls/hr IV . Q10H [facility] Rx#:[id number] Oral 0 0 Tube Feeding 0 0 Blood Product 0 0 Other 0 Output: Urine 125 100 300 Other: Voiding Method Urinal Urinal # Voids 1 1 - Exam PHYSICAL EXAMINATION: GENERAL: The patient is alert and oriented x3, not in any acute distress. Well developed, well nourished. HEENT: Pupils are round and equally reacting to light. EOMI. No scleral icterus. No conjunctival pallor. Normocephalic, atraumatic. No pharyngeal erythema. No thyromegaly. CARDIOVASCULAR: S1 and S2 present. No murmurs, rubs, or gallops. PULMONARY: Chest is clear to auscultation, no wheezing or crackles. ABDOMEN: Abdomen is distended nontender mostly tympanic cannot really assess for shifting dullness MUSCULOSKELETAL: No joint swelling or deformity. EXTREMITIES: No cyanosis, clubbing, or pedal edema. NEUROLOGICAL: Gross neurological examination did not reveal any focal deficits. SKIN: No rashes. - Labs CBC & Chem 7: 08/24/18 08:06 08/26/18 08:13 Labs: Abnormal Lab Results - Last 24 Hours (Table) 08/26/18 08/26/18 Range/Units 08:13 08:13 PT 17.5 H (9.0-12.0) sec INR 1.8 H (<1.2) Chloride 111 H (98-107) mmol/L Carbon Dioxide 19 L (22-30) mmol/L BUN 41 H (9-20) mg/dL Glucose 111 H (74-99) mg/dL Calcium 8.3 L (8.4-10.2) mg/dL Total Bilirubin 7.4 H (0.2-1.3) mg/dL AST 172 H (17-59) U/L ALT 125 H (21-72) U/L Alkaline Phosphatase 838 H (38-126) U/L Total Protein 5.6 L (6.3-8.2) g/dL Albumin 2.5 L (3.5-5.0) g/dL Microbiology - Last 24 Hours (Table) 08/22/18 21:30 Blood Culture - Preliminary Blood No Growth after 72 hours Assessment and Plan Plan: Sepsis: Possibility of ascending cholangitis possibility of urinary tract infection is low. Patient is on Unasyn which will be continued hematuria improved INR is 1.8. Patient is on Unasyn which will be continued -Multiple hepatic lesions concerning for malignancy. Patient will undergo upper GI endoscopy with possibility of ERCP -Hematuria: Secondary to supratherapeutic INR, improved now -History of pulmonary embolism patient copay a for new anticoagulants is very high so patient may need to go back on Coumadin again -Cholelithiasis , ascending cholangitis or cholecystitis cannot be ruled out general surgery was consulted continue with antibiotics for now -Acute renal failure on chronic kidney disease stage III from hypertensive nephrosclerosis patient will be continued on IV fluids -Hypovolemic hyponatremia improved with IV fluids -Hypertension holding off TONY inhibitor secondary to hypotension and the kidney failure -Hyperkalemia secondary to TONY inhibitor and acute renal failure. Improved now -History of DVTs PEs with the Tabor filter, presently holding off on Coumadin because of supratherapeutic INR hematuria -History of prostate cancer status post radiation therapy and Lupron -Chronic venous stasis of the left lower extremity with circumferential involvement. Just below the mid morales area -Patient will need pharmacologic GI prophylaxis
--- NOTE | 2018-08-26 15:17 | XR ---
EXAMINATION TYPE: XR chest 1V portable DATE OF EXAM: 08/26/2018 CLINICAL HISTORY: Difficulty breathing progress study. TECHNIQUE: Single AP portable frontal view of the chest is obtained. COMPARISON: Chest x-ray from December 17, 2014. FINDINGS: Poor inspiration noted on current study. Current exam is suboptimal as does not include ent regla left lateral lung base. Visualized lungs show patchy bibasilar atelectasis . No pleural effusion or pneumothorax is seen bilaterally. Cardiac silhouette size is within normal limits. Osseous structu res are intact. IMPRESSION: Poor inspiration with patchy bibasilar atelectasis felt present.
[2018-08-26] MEDS ORDERED: ALBUTEROL NEBULIZED 2.5 MG/3 ML INHALATION ONE (15:28)
--- NOTE | 2018-08-26 15:41 | P.PCN ---
Date of Procedure: 08/26/18 Description of Procedure: BRIEF HISTORY: 82-year-old gentleman presents with multiple complaints over the last 4-5 weeks including unintentional 25 pound weight loss, right upper quadrant abdominal pain combined with 2-3 day fever greater than 101 darker colored urine hematuria with new onset of jaundice and abdominal ascites leukocytosis. Presentation is multifactorial. Component of possible underlying UTI as well as an underlying cholangitis cannot be excluded. Computed tomography scan of the abdomen described numerous hypodense liver lesions suspicious for metastatic disease with wall thickening of the gastric antrum that is suspicious for a gastric malignancy with the wall measuring up to 1.5 cm with concern for possible gastric outlet obstruction. PROCEDURE PERFORMED: Esophagogastroduodenoscopy with biopsy. PREOPERATIVE DIAGNOSIS: Abnormal CT imaging, gastric thickening on CT, concern for gastric a lead obstruction. ESTIMATED BLOOD LOSS: Minimal. IV sedation per anesthesia. PROCEDURE: After informed consent was obtained, the patient was brought into the endoscopy unit. IV sedation was administered by Anesthesia under continuous monitoring. Initially the Olympus GIF-190 video endoscope was inserted into the mouth. Esophagus intubated without any difficulty. It was gradually advanced into the stomach where retained food and deformity of the antrum were noted, however the endoscope was able to be advanced into the second portion of the duodenum and biopsies were taken. The second part of the duodenum appeared normal. The scope at this time was withdrawn to the stomach, adequately insufflated with air, a large amount of retained food both solid and liquid was noted in both the prepyloric region of the stomach and in the cardia and fundus on retroflexion. Suctioning of the liquid from the antrum revealed abnormal tissue and deformity of the antrum consistent with a mass with the appearance highly suspicious for a malignant gastric mass. This antral mass was biopsied. The scope The scope was then withdrawn into the esophagus. The GE junction appeared normal. The esophagus appeared normal. There were no erosions or ulcerations seen and the patient tolerated the procedure well. IMPRESSION: 1. Partially obstructing gastric mass in the antrum of the stomach, biopsied. 2. Retained food suggestive of partial gastric outlet obstruction. 3. Normal-appearing duodenum, biopsied. RECOMMENDATIONS: The findings of this examination were discussed with the patient and his family. Nothing by mouth for now, can consider trial of liquids. Case discussed with the oncology service. Consideration is for surgical intervention although patient's multiple medical comorbidities and likely metastatic cancer may be prohibitive, versus transfer to a tertiary center for evaluation for gastric stent placement, versus hospice. Await pathology from biopsies. Further recommendations to follow.
[2018-08-26] MEDS ORDERED: traMADol 50 MG TAB PO PRN (16:54)
[2018-08-26] MEDS: IPRATROPIUM-ALBUTEROL 3 ML NEB INHALATION SCH ×2 (17:56→23:05)
--- NOTE | 2018-08-26 18:52 | XR ---
EXAMINATION: XR chest 1V portable DATE AND TIME: 08/26/2018 6:45 PM CLINICAL INDICATION: PHH; low pulse ox TECHNIQUE: AP upright portable COMPARISON: 08/26/2018 AP portable radiograph taken at 3:03 PM FINDINGS: There is interval worsening in the lung inflation pattern since the prior study, on the left. This is characterized by ill-defined multifocal 1-2 cm coalescing opacities throughout the left mid and lowe r lung zone, with partial silhouetting of the left hemidiaphragm which appears to be new since the pr ior study. The left upper lung zone is uninvolved as is the visualized inflated right lung. No mediastinal shift. Pleural spaces are negative. The soft tissues and skeletal structures are negative for acute radiographic findings. IMPRESSION: NEW LEFT-SIDED DEVELOPING CONSOLIDATION THROUGHOUT THE LEFT MID AND LOWER LUNG ZONE. CORRELATE FOR DE VELOPING PNEUMONIA.
[2018-08-26 18:56] LABS: ABG Base Excess -9.3 mmol/L; ABG HCO3 17 mmol/L (21-25); ABG Oxygen Saturation 90.9 % (94-97); ABG PCO2 40 mmHg (35-45); ABG PH 7.25 (7.35-7.45); ABG PO2 68 mmHg (83-108)
[2018-08-26] MEDS ORDERED: SODIUM CHLORIDE 0.9% 500 ML 500 ML IV ONE (19:11)
--- NOTE | 2018-08-26 19:49 | P.PN ---
Subjective Progress Note Date: 08/26/18 Principal diagnosis: Abdominal pain and right upper quadrant pain, nausea poor appetite This is a very pleasant 82-year-old gentleman who follows with Dr. Montalvo as his primary care physician. He has a history of coronary artery disease with previous stent placement, hypertension, pulmonary emboli, DVT on warfarin, prostate cancer status post radiation, previous smoking history. He was seen and evaluated yesterday by Dr. Montalvo in the office. He had complaints of weight loss, poor appetite, hematuria, abdominal pain and generalized weakness and fatigue. Lab work and CAT scan of the abdomen and pelvis were ordered. The patient was found to have a high INR of 8.8 and he was directed to the emergency room. CAT scan of the abdomen revealed probable tiny calcified gallstones unchanged compared to previous. There is new mild to moderate abdominal ascites noted. Ultrasound of the gallbladder revealed possible small gallstones. No dilated ducts. There was a heterogeneity in the liver without discrete mass identified. There is some variable fatty infiltration and a tumor could not be entirely excluded. Computed tomography scan with contrast was recommended. White count 19.1. Hemoglobin 12.7. INR down to 4.3. Sodium 132. Potassium 6.0. Creatinine 1.41. Urinalysis with moderate leukocytes, large blood. Culture is pending. The patient is seen today in the dictation on the regular medical floor. He is awake and alert in no acute distress. No shortness of breath, cough or congestion. No chills or night sweats. Abdominal discomfort has resolved. He is currently afebrile. Maintaining O2 saturations in the mid 90s on room air. He is hemodynamically stable. He is currently on Unasyn. 0.9 normal saline at 100 ML's per hour. He did receive one dose of vitamin K. On 08/24/2018 patient seen in follow-up on medical surgical floor. He is awake and alert, in no acute distress, his abdomen is soft and nontender, and platelets of abdominal pain today. Today's labs have been reviewed, LFTs are, total bilirubin is 6.4. Ultrasound showed small amount of ascites does not warrant paracentesis. Today's INR is 2.2, white blood cell count remains elevated at 15.8. Patient is afebrile, room air pulse ox is 94%. Urine and blood culture show no growth. Hepatitis panel was negative. Urinalysis was infected on admission, currently on antibiotic coverage in the form of Unasyn, was 0.9 normal saline at a rate of 100 ML per hour, lung sounds are clear. Patient is being scheduled for MRCP tomorrow. Alpha-fetoprotein, alpha-1 antitrypsin, and other labs are pending. On 08/26/2018 we were reconsulted on the patient. He had undergone an EGD today that was initially uneventful. The procedure was preformed because of the computed tomography scan which revealed hypodense liver lesions which are suspicious of metastatic disease. There was wall thickening of the gastric antrum which again was suspicious for gastric malignancy. His EGD results did reveal a partially obstructing gastric mass in the antrum of the stomach which was biopsied. There is also retained food suggestive of partial gastric obstruction. Following the procedure he started coughing quite excessively and developed worsening shortness of breath. He was stabilized and returned to the regular medical floor as initially requiring 5 L of nasal cannula to maintain O2 saturations in the 90s. He progressively got more more short of breath. We were called approximately 7 PM and went to see the patient. He was quite dyspneic. Currently on 15 L Ventimask to maintain O2 saturations in the 90s. He is awake and somewhat fatigued and in moderate respiratory distress. Chest x-ray revealed a new left-sided consolidation throughout the left mid and lower lung gutierres. Suspected aspiration. Objective - Vital Signs Vital signs: Vital Signs Temp 98.6 F 08/26/18 19:00 Pulse 110 H 08/26/18 19:00 Resp 25 H 08/26/18 19:00 BP 82/54 08/26/18 19:00 Pulse Ox 91 L 08/26/18 19:00 Intake & Output 08/26/18 08/26/18 08/27/18 06:59 18:59 06:59 Intake Total 200 1100 Output Total 100 500 Balance 100 600 Weight 104.5 kg Intake: IV 600 Intake, IV Titration 200 500 Amount Ampicillin-Sulbactam 3 gm 100 In Sodium Chloride 0.9% 100 ml @ 200 mls/hr IVPB Q6H [facility] Rx#:[id number] Sodium Chloride 0.9% 1, 100 500 000 ml @ 100 mls/hr IV . Q10H [facility] Rx#:[id number] Oral 0 Tube Feeding 0 Blood Product 0 Other 0 Output: Urine 100 500 Other: Voiding Method Urinal Urinal # Voids 1 1 - Exam GENERAL EXAM: Alert, jaundiced 82-year-old patient in mild to moderate respiratory distress. On 15 L Ventimask.. HEAD: Normocephalic/atraumatic. EYES: Normal reaction of pupils, equal size. Conjunctiva pink, sclera white. NOSE: Clear with pink turbinates. THROAT: No erythema or exudates. NECK: No masses, no JVD, no thyroid enlargement, no adenopathy. CHEST: No chest wall deformity. Symmetrical expansion. LUNGS: Equal air entry with scattered rhonchi, crackles more so on the left lung. CVS: Regular rate and rhythm, normal S1 and S2, no gallops, no murmurs, no rubs ABDOMEN: Soft, distended, nontender. No hepatosplenomegaly, normal bowel sounds, no guarding or rigidity. EXTREMITIES: No clubbing, no edema, no cyanosis, 2+ pulses and upper and lower extremities. MUSCULOSKELETAL: Muscle strength and tone normal. SPINE: No scoliosis or deformity SKIN: No rashes CENTRAL NERVOUS SYSTEM: Alert and oriented -3. No focal deficits, tone is normal in all 4 extremities. PSYCHIATRIC: Alert and oriented -3. Appropriate affect. Intact judgment and insight. - Labs CBC & Chem 7: 08/24/18 08:06 08/26/18 08:13 Labs: Abnormal Lab Results - Last 24 Hours (Table) 08/26/18 08/26/18 08/26/18 Range/Units 08:13 08:13 18:55 PT 17.5 H (9.0-12.0) sec INR 1.8 H (<1.2) ABG pH 7.25 L (7.35-7.45) ABG pO2 68 L (83-108) mmHg ABG HCO3 17 L (21-25) mmol/L ABG O2 Saturation 90.9 L (94-97) % Chloride 111 H (98-107) mmol/L Carbon Dioxide 19 L (22-30) mmol/L BUN 41 H (9-20) mg/dL Glucose 111 H (74-99) mg/dL Calcium 8.3 L (8.4-10.2) mg/dL Total Bilirubin 7.4 H (0.2-1.3) mg/dL AST 172 H (17-59) U/L ALT 125 H (21-72) U/L Alkaline Phosphatase 838 H (38-126) U/L Total Protein 5.6 L (6.3-8.2) g/dL Albumin 2.5 L (3.5-5.0) g/dL Microbiology - Last 24 Hours (Table) 08/22/18 21:30 Blood Culture - Preliminary Blood No Growth after 72 hours Assessment and Plan Assessment: Impression: #1 Unexplained weight loss with abdominal discomfort. Computed tomography scan of the abdomen revealed thickening of the gastric antrum that was suspicious for gastric malignancy. There is numerous hypodense liver lesions are suspicious for metastatic disease. He did undergo EGD today 08/26/2017 which was initially uneventful however in the recovery. He was found to have a significant mass in the partially obstructing gastric mass in the antrum of the stomach, biopsy. Retained food suggestive of gastric outlet obstruction. He was coughing excessively and since then had increasing FiO2 requirements while out on the regular medical floor. Chest x-ray reveals significant infiltrates of the left mid and lower lungs. Suspect aspiration. #2 Hematuria secondary to supratherapeutic INR. Suspect urinary tract infection. #3 Coagulopathy with an INR of 8.8 on admission, currently 4.3. Received vitamin K 10 mg 1. #4 History of pulmonary embolism/DVT. #5 Hypertension. #6 History of prostate cancer status post radiation and Lupron. #7 Chronic venous stasis of the left lower extremity with previous venous ulcer. #8 History of coronary artery disease with previous stent placement. #9 Peripheral vascular disease with previous stent placement to the right femoral artery. Plan: The patient was seen and evaluated by Dr. Phillips. He had developed significant respiratory distress following his EGD earlier this afternoon. Chest x-ray reveals evidence of suspected aspiration into the left mid and lower lung. He is in his moderate respiratory distress. He is transferred to the intensive care unit. He'll be placed on BiPAP. Started on Zosyn. Start on a bicarb drip. Continue to monitor him closely. We'll make further recommendations based on his clinical status. The family has been at the bedside and are up-to-date on his current status. I, the cosigning physician, performed a history & physical examination of the patient. Lungs sounds with scattered rhonchi and crackles more so on the left lung. Maintaining good O2 saturations in the 90s on 15 L Ventimask.. I discussed the assessment and plan of care with my nurse practitioner, Marisabel Contreras. I attest to the above consultation as dictated by her.
[2018-08-26] MEDS ORDERED: SODIUM CHLORIDE 0.9% 1,000 ML IV ONE ×2 (19:55→20:54)
[2018-08-26] MEDS ORDERED: ALBUTEROL NEBULIZED 2.5 MG/3 ML INHALATION SCH (20:00)
[2018-08-26 20:03] LABS: Albumin 2.6 g/dL (3.5-5.0); Calcium 8.4 mg/dL (8.4-10.2); Potassium 5.2 mmol/L (3.5-5.1); Total Bilirubin 8.6 mg/dL (0.2-1.3); Total Protein 5.7 g/dL (6.3-8.2)
[2018-08-26 20:14] LABS: Glucose,Whole Blood 130 mg/dL (75-99)
[2018-08-26] MEDS: methylPREDNISolone SOD SUCCI 125 MG/2 ML VIAL IV SCH (20:37)
[2018-08-26] MEDS: PIPERACILLIN-TAZOBACTAM 3.375 GM in SODIUM CHLORIDE 0.9% 100 ML IVPB SCH (20:57)
[2018-08-26] MEDS: DEXTROSE 5% IN WATER 1,000 ML with SODIUM BICARB (1 MEQ/ML) 150 ML IV SCH (20:58)
[2018-08-26 21:41] LABS: Amorphous Sediment,Urine Moderate /hpf; Appearance,Urine Turbid (Clear); Bilirubin,Urine 1+ (Negative); Blood,Urine Large (Negative); Color,Urine Dark Brown; Glucose,Urine (UA) Negative (Negative); Ketones,Urine Trace (Negative); Leukocyte Esterase,Urine Trace (Negative); Nitrite,Urine Negative (Negative); PH, Urine 5.5 (5.0-8.0); Protein,Urine 2+ (Negative); RBC,Urine >182 /hpf (0-5); Specific Gravity,Urine 1.028 (1.001-1.035)
--- NOTE | 2018-08-27 | P.CONS ---
History of Present Illness - Reason for Consult Consult date: 08/26/18 gastric mass, liver masses - History of Present Illness The patient is an 82-year-old white male, with a complicated past hematologiconcologic history. 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 He was treated with radiation and hormonal manipulation for about 2 years. He states that he has been in remission since with most recent PSA, apparently earlier this year being less than 1. He states that around the time of the diagnosis of the prostate cancer, he developed significant PE and bilateral DVT. He was on anticoagulation for some years. This was subsequently discontinued. 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 He has been placed back on anticoagulation and continued on that since The patient was in a fair state of health until about 5-6 weeks ago. Since then, he has noted progressive decrease in appetite, due to early satiety. He has also developed intermittent discomfort in the right upper quadrant, and mild nausea. The patient came into the hospital as he had developed bleeding in the urine. INR was noted to be 8.8. This did improve with vitamin K. The patient's hemoglobin remained in the 11-12 range. Labs also showed marked elevation of liver enzymes, with bilirubin in the 7-8 range. The patient had ultrasound of the abdomen done, which raised the possibility of liver masses. GI was therefore consulted. The patient had a CT of the abdomen and pelvis which confirmed the presence of multiple mass lesions in the liver. There also appeared to be thickening of the stomach mucosa. The patient therefore underwent an EGD. This revealed a irregular near obstructing lesion in the d istal stomach. Case was discussed with gastroenterology. The scope couldn't be traversed beyond the lesion, but there was evidence of obstruction with significant retained food in the stomach. Consult was therefore placed for further evaluation and recommendations Review of Systems Constitutional: Reports chronic pain, Reports poor appetite, Reports weakness, Reports weight loss Eyes: denies blurred vision, denies pain Ears: deny: decreased hearing, ear discharge, earache, tinnitus Ears, nose, mouth and throat: Denies headache, Denies sore throat Cardiovascular: Reports decreased exercise tolerance Respiratory: Denies cough Gastrointestinal: Reports abdominal pain, Reports bloating, Reports early s atiety, Reports jaundice Genitourinary: Reports hematuria Musculoskeletal: Reports muscle weakness Integumentary: Denies pruritus, Denies rash Neurological: Reports weakness Psychiatric: Denies anxiety, Denies depression Endocrine: Reports fatigue, Reports weight change Hematologic/Lymphatic: Reports as per HPI, Reports thrombophilia Past Medical History Past Medical History: Coronary Artery Disease (CAD), Hypertension, Prostate Disorder, Pulmonary Embolus (PE), Vascular Disorder Additional Past Medical History / Comment(s): prostate ca received 38 radiation treatment and Leupron, bilateral PE 2004 treated for a total 3 year with coumadin, psoriasis History of Any Multi-Drug Resistant Organisms: None Reported Past Surgical History: Orthopedic Surgery Additional Past Surgical History / Comment(s): Hx. stent right groin, and cardiac Past Anesthesia/Blood Transfusion Reactions: No Reported Reaction Past Psychological History: No Psychological Hx Reported Smoking Status: Former smoker Past Alcohol Use History: None Reported Past Drug Use History: None Reported Medications and Allergies Home Medications Medication Instructions Recorded Confirmed Type Telmisartan [Micardis] 20 mg PO DAILY 12/17/14 08/22/18 History Vit C/E/Zn/Coppr/Lutein/Zeaxan 1 tab PO DAILY 12/20/14 08/22/18 History [Preservision Areds 2 Softgel] Acetaminophen [Tylenol] 325 mg PO DAILY 08/22/18 08/22/18 History Cholecalciferol [Vitamin D3] 1,000 unit PO DAILY 08/22/18 08/22/18 History Cyanocobalamin (Vitamin B-12) 1,000 mcg PO DAILY 08/22/18 08/22/18 History [Vitamin B-12] Warfarin Sodium 5 mg PO DAILY 08/22/18 08/22/18 History Apixaban [Eliquis] 5 mg PO BID #60 tab 08/24/18 Rx Allergies Allergy/AdvReac Type Severity Reaction Status Date / Time No Known Allergies Allergy Verified 08/22/18 18:30 Physical Exam Vitals: Vital Signs Temp Pulse Pulse Pulse Resp BP BP 08/26/18 23:07 96 08/26/18 23:00 98 25 H 104/72 08/26/18 22:30 101 H 34 H 106/64 08/26/18 22:00 100 18 117/64 08/26/18 21:45 101 H 24 119/77 08/26/18 21:30 99 26 H 112/68 08/26/18 21:15 100 25 H 102/69 08/26/18 21:00 100 24 96/54 08/26/18 20:45 104 H 32 H 89/63 08/26/18 20:30 135 H 28 H 95/70 08/26/18 20:15 98.0 F 109 H 30 H 85/57 08/26/18 19:34 97.5 F L 112 H 24 91/63 08/26/18 19:00 98.6 F 110 H 25 H 82/54 08/26/18 18:44 107 H 22 93/61 08/26/18 18:29 08/26/18 18:06 106 H 08/26/18 17:56 102 H 08/26/18 17:15 107 H 24 08/26/18 17:12 97.6 F 104 H 24 106/60 08/26/18 16:34 98.3 F 109 H 16 102/60 08/26/18 15:45 100 18 109/56 08/26/18 15:30 105 H 20 130/66 08/26/18 15:15 104 H 18 145/69 08/26/18 15:00 104 H 18 137/65 08/26/18 14:49 98.0 F 100 16 145/74 08/26/18 11:45 97.5 F L 88 16 122/76 08/26/18 05:00 98.0 F 82 16 116/75 Pulse Ox 08/26/18 23:07 08/26/18 23:00 97 08/26/18 22:30 97 08/26/18 22:00 86 L 08/26/18 21:45 98 08/26/18 21:30 98 08/26/18 21:15 98 08/26/18 21:00 98 08/26/18 20:45 95 08/26/18 20:30 93 L 08/26/18 20:15 93 L 08/26/18 19:34 92 L 08/26/18 19:00 91 L 08/26/18 18:44 89 L 08/26/18 18:29 92 L 08/26/18 18:06 08/26/18 17:56 08/26/18 17:15 08/26/18 17:12 91 L 08/26/18 16:34 89 L 08/26/18 15:45 97 08/26/18 15:30 100 08/26/18 15:15 100 08/26/18 15:00 100 08/26/18 14:49 93 L 08/26/18 11:45 96 08/26/18 05:00 94 L Intake and Output 08/26/18 08/26/18 08/27/18 14:59 22:59 06:59 Intake Total 1100 2250 75 Output Total 300 235 10 Balance 800 2015 65 Intake: IV 600 2250 75 Dextrose 5% in Water 1, 150 75 000 ml @ 75 mls/hr IV . [id number] [facility] with Sodium Bicarb (1 Meq/ml) 150 ml Rx#:[id number] Piperacillin-Tazobactam 3 100 .375 gm In Sodium Chloride 0.9% 100 ml @ 25 mls/hr IVPB Q8H [facility] Rx#: [id number] Sodium Chloride 0.9% 1, 2000 000 ml @ 999 mls/hr IV . Q1H1M ONE Rx#:[id number] Intake, IV Titration 500 Amount Sodium Chloride 0.9% 1, 500 000 ml @ 100 mls/hr IV . Q10H [facility] Rx#:[id number] Output: Urine 300 235 10 Other: Voiding Method Urinal # Voids 1 - Constitutional General appearance: no acute distress - EENT Eyes: EOMI, PERRLA ENT: hearing grossly normal, normal oropharynx - Neck Neck: no lymphadenopathy Thyroid: bilateral: normal size - Respiratory Respiratory: bilateral: CTA - Cardiovascular Rhythm: regular Heart sounds: normal: S1, S2 - Gastrointestinal General gastrointestinal: distended, normal bowel sounds, soft Localized gastrointestinal: tender: RUQ - Integumentary Integumentary: normal - Neurologic Neurologic: CNII-XII intact - Musculoskeletal Musculoskeletal: generalized weakness, strength equal bilaterally - Psychiatric Psychiatric: A&O x's 3, appropriate affect Results CBC & Chem 7: 08/24/18 08:06 08/26/18 19:50 Labs: Abnormal Lab Results - Last 24 Hours (Table) 08/26/18 08/26/18 08/26/18 Range/Units 08:13 08:13 18:55 PT 17.5 H (9.0-12.0) sec INR 1.8 H (<1.2) ABG pH 7.25 L (7.35-7.45) ABG pO2 68 L (83-108) mmHg ABG HCO3 17 L (21-25) mmol/L ABG O2 Saturation 90.9 L (94-97) % Potassium (3.5-5.1) mmol/L Chloride 111 H (98-107) mmol/L Carbon Dioxide 19 L (22-30) mmol/L BUN 41 H (9-20) mg/dL Creatinine (0.66-1.25) mg/dL Glucose 111 H (74-99) mg/dL POC Glucose (mg/dL) (75-99) mg/dL Plasma Lactic Acid Kishan (0.7-2.0) mmol/L Calcium 8.3 L (8.4-10.2) mg/dL Total Bilirubin 7.4 H (0.2-1.3) mg/dL AST 172 H (17-59) U/L ALT 125 H (21-72) U/L Alkaline Phosphatase 838 H (38-126) U/L Total Protein 5.6 L (6.3-8.2) g/dL Albumin 2.5 L (3.5-5.0) g/dL Urine Protein (Negative) Urine Ketones (Negative) Urine Blood (Negative) Urine Bilirubin (Negative) Ur Leukocyte Esterase (Negative) Urine RBC (0-5) /hpf Amorphous Sediment (None) /hpf 08/26/18 08/26/18 08/26/18 Range/Units 19:50 19:50 20:11 PT (9.0-12.0) sec INR (<1.2) ABG pH (7.35-7.45) ABG pO2 (83-108) mmHg ABG HCO3 (21-25) mmol/L ABG O2 Saturation (94-97) % Potassium 5.2 H (3.5-5.1) mmol/L Chloride 111 H (98-107) mmol/L Carbon Dioxide 15 L (22-30) mmol/L BUN 47 H (9-20) mg/dL Creatinine 1.77 H (0.66-1.25) mg/dL Glucose 129 H (74-99) mg/dL POC Glucose (mg/dL) 130 H (75-99) mg/dL Plasma Lactic Acid Kishan 6.8 H* (0.7-2.0) mmol/L Calcium (8.4-10.2) mg/dL Total Bilirubin 8.6 H (0.2-1.3) mg/dL AST 194 H (17-59) U/L ALT 116 H (21-72) U/L Alkaline Phosphatase 774 H (38-126) U/L Total Protein 5.7 L (6.3-8.2) g/dL Albumin 2.6 L (3.5-5.0) g/dL Urine Protein (Negative) Urine Ketones (Negative) Urine Blood (Negative) Urine Bilirubin (Negative) Ur Leukocyte Esterase (Negative) Urine RBC (0-5) /hpf Amorphous Sediment (None) /hpf 08/26/18 Range/Units 20:15 PT (9.0-12.0) sec INR (<1.2) ABG pH (7.35-7.45) ABG pO2 (83-108) mmHg ABG HCO3 (21-25) mmol/L ABG O2 Saturation (94-97) % Potassium (3.5-5.1) mmol/L Chloride (98-107) mmol/L Carbon Dioxide (22-30) mmol/L BUN (9-20) mg/dL Creatinine (0.66-1.25) mg/dL Glucose (74-99) mg/dL POC Glucose (mg/dL) (75-99) mg/dL Plasma Lactic Acid Kishan (0.7-2.0) mmol/L Calcium (8.4-10.2) mg/dL Total Bilirubin (0.2-1.3) mg/dL AST (17-59) U/L ALT (21-72) U/L Alkaline Phosphatase (38-126) U/L Total Protein (6.3-8.2) g/dL Albumin (3.5-5.0) g/dL Urine Protein 2+ H (Negative) Urine Ketones Trace H (Negative) Urine Blood Large H (Negative) Urine Bilirubin 1+ H (Negative) Ur Leukocyte Esterase Trace H (Negative) Urine RBC >182 H (0-5) /hpf Amorphous Sediment Moderate H (None) /hpf Microbiology - Last 24 Hours (Table) 08/22/18 21:30 Blood Culture - Preliminary Blood No Growth after 72 hours Comments: EGD report reviewed . Case d/w GI Chest x-ray: report reviewed CT scan - abdomen: report reviewed CT scan - pelvis: report reviewed US - abdomen: report reviewed Assessment and Plan (1) Gastric mass Narrative/Plan: The patient is being seen for a new diagnosis of a near obstructing gastric mass, as well as CT appearance consistent with liver metastasis. The case was discussed in detail with Gastro enterology. The clinical picture is quite consistent with malignancy. 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 We will await the biopsy to confirm. The above findings and implications were discussed in detail with the family. They were advised, that the patient appears to have metastatic disease with liver involvement. If the diagnosis is confirmed to be primary gastric cancer, then systemic treatment would be the mainstay, with the intent being palliative. At this time the primary concern, according to gastroenterology, please impen ding gastric obstruction. There the scope couldn't be traversed, the patient has symptoms of partial obstruction, and did have significant retained food in the stomach. Therefore palliation of obstruction at this time is the primary concern. The most desirable modality would be a stent if possible. It was felt by GI that the patient should be evaluated for the same at the tertiary institution. I am in agreement with the same. Therefore transferred to [facility] was recommended. Follow-up with the patient in the office subsequently, once biopsy report is available for further treatment planning Current Visit: Yes Status: Acute Code(s): K31.9 - DISEASE OF STOMACH AND DUODENUM, UNSPECIFIED SNOMED Code(s): 084990661 (2) Coagulopathy Narrative/Plan: This is due to Coumadin, with effect potentiated by decreased oral intake, and liver dysfunction. This has responded to vitamin K. Current Visit: Yes Status: Acute Code(s): D68.9 - COAGULATION DEFECT, UNSPECIFIED SNOMED Code(s): 28818832 Plan: The patient has a history of prostate cancer. However this is in remission. Defer to the admitting service and other consultants for management of his other medical problems
[2018-08-27] MEDS ORDERED: SODIUM CHLORIDE 0.9% 1,000 ML IV ONE (00:50)
[2018-08-27] MEDS: methylPREDNISolone SOD SUCCI 125 MG/2 ML VIAL IV SCH ×3 (01:22→13:02)
[2018-08-27] MEDS: HEPARIN SODIUM,PORCINE 5,000 UNIT/ML 1 ML VIAL SQ SCH ×2 (01:22→08:56)
[2018-08-27] MEDS: IPRATROPIUM-ALBUTEROL 3 ML NEB INHALATION SCH ×3 (03:06→12:08)
[2018-08-27] MEDS: PIPERACILLIN-TAZOBACTAM 3.375 GM in SODIUM CHLORIDE 0.9% 100 ML IVPB SCH ×2 (03:27→13:02)
[2018-08-27 05:39] LABS: Basophils % (A) 0 %; Eosinophils # (A) 0.1 k/uL (0-0.7); Eosinophils % (A) 0 %; HCT 37.8 % (39.0-53.0); Hypochromasia Marked; Lymphocytes # (A) 0.6 k/uL (1.0-4.8); Lymphocytes % (A) 3 %; MCH 31.2 pg (25.0-35.0); Macrocytosis Marked; Mean Platelet Volume 7.8; Monocytes # (A) 0.7 k/uL (0-1.0); Monocytes % (A) 3 %; Neutrophils # (A) 21.8 k/uL (1.3-7.7); Neutrophils % (A) 94 %; Platelet Count 421 k/uL (150-450); RBC 3.51 m/uL (4.30-5.90); RDW 14.4 % (11.5-15.5); WBC 23.2 k/uL (3.8-10.6)
[2018-08-27 05:43] LABS: MCV 107.7 fL (80.0-100.0)
[2018-08-27 05:44] LABS: INR 1.9 (<1.2); Prothrombin Time 18.7 sec (9.0-12.0)
[2018-08-27] MEDS: ONDANSETRON 4 MG/2 ML VIAL IVP PRN (06:08)
[2018-08-27 06:14] LABS: Albumin 2.4 g/dL (3.5-5.0); Calcium 7.9 mg/dL (8.4-10.2); Magnesium 2.4 mg/dL (1.6-2.3); Phosphorus 6.3 mg/dL (2.5-4.5); Potassium 5.4 mmol/L (3.5-5.1); Total Bilirubin 8.4 mg/dL (0.2-1.3); Total Protein 5.4 g/dL (6.3-8.2)
--- NOTE | 2018-08-27 06:41 | XR ---
EXAMINATION TYPE: XR chest 1V portable DATE OF EXAM: 08/27/2018 HISTORY: Aspiration pneumonia. REFERENCE: Previous study dated 08/26/2018. FINDINGS: There is been partial clearing of the left lung. Some residual left basilar airspace diseas e persists. There is platelike atelectasis at the right lung base. There is a small left effusion. Th e heart is not enlarged. IMPRESSION: IMPROVED AERATION, LEFT LUNG.
[2018-08-27] MEDS: PANTOPRAZOLE 40 MG/10 ML VIAL IVP SCH (08:56)
[2018-08-27] MEDS: traMADol 50 MG TAB PO SCH (11:29)
--- NOTE | 2018-08-27 12:31 | P.PN ---
Subjective Progress Note Date: 08/27/18 CHIEF COMPLAINT: Jaundice HISTORY OF PRESENT ILLNESS: The patient is a 82-year-old gentleman with history of liver metastases and coagulopathy. He denies abdominal pain. He completed upper endoscopy with gastric mass identified. His family is at bedside. No reports of fevers or chills. PHYSICAL EXAM: VITAL SIGNS: Reviewed CONSTITUTIONAL: Well developed and in no acute distress. EYES: Conjuctivae with sclera icterus. Extraocular movements grossly intact. HEAD, EARS, NOSE, THROAT: Moist buccal mucosa. Head is atraumatic, normocephalic. Hears conversational speech. No nasal drainage. NECK: Supple. No thyroidomegaly. RESPIRATORY: Non-labored respirations and equal bilateral excursions. CARDIOVASCULAR: Palpable 2+ radial pulses. Tachycardic ABDOMEN: Soft. Non-tender with ascites. MUSCULOSKELETAL: No gross deformity of the lower extremities noted. No clubbing. No cyanosis. SKIN: No lesions. Well perfused. NEUROLOGIC: Cranial nerves I through XII grossly intact. No focal or lateralizing signs. PSYCH: Appropriate affect. Alert and oriented to person, place and time. CLINCAL LABS: Reviewed RADIOLOGY: Report reviewed MEDICAL RESULTS: Upper endoscopy findings reviewed ASSESSMENT: 1. Liver metastases unclear etiology 2. Coagulopathy with liver metastases 3. Gastric mass 4. Tachycardia 5. Peripheral vascular occlusive disease PLAN: 1. No surgical attention at this time 2. For gastric mass, may benefit from transfer to tertiary care center for further workup 3. Correction of coagulopathy as needed Critical care time 17 minutes Objective - Vital Signs Vital signs: Vital Signs Temp 97.4 F L 08/27/18 08:00 Pulse 91 08/27/18 12:08 Resp 27 H 08/27/18 11:00 BP 106/65 08/27/18 11:00 Pulse Ox 93 L 08/27/18 11:21 Intake & Output 08/26/18 08/27/18 08/27/18 18:59 06:59 18:59 Intake Total 1100 3950 375 Output Total 500 132 150 Balance 600 3818 225 Weight 112.1 kg Intake: IV 600 3950 375 Dextrose 5% in Water 1, 750 375 000 ml @ 75 mls/hr IV . [id number] [facility] with Sodium Bicarb (1 Meq/ml) 150 ml Rx#:[id number] Piperacillin-Tazobactam 3 200 .375 gm In Sodium Chloride 0.9% 100 ml @ 25 mls/hr IVPB Q8H [facility] Rx#: [id number] Sodium Chloride 0.9% 1, 3000 000 ml @ 999 mls/hr IV . Q1H1M ONE Rx#:[id number] Intake, IV Titration 500 Amount Sodium Chloride 0.9% 1, 500 000 ml @ 100 mls/hr IV . Q10H [facility] Rx#:[id number] Output: Urine 500 132 150 Other: Voiding Method Urinal Indwelling Catheter Indwelling Catheter # Voids 1 1 - Labs CBC & Chem 7: 08/27/18 04:33 08/27/18 04:33 Labs: Abnormal Lab Results - Last 24 Hours (Table) 08/26/18 08/26/18 08/26/18 Range/Units 18:55 19:50 19:50 WBC (3.8-10.6) k/uL RBC (4.30-5.90) m/uL Hgb (13.0-17.5) gm/dL Hct (39.0-53.0) % MCV (80.0-100.0) fL MCHC (31.0-37.0) g/dL Neutrophils # (1.3-7.7) k/uL Lymphocytes # (1.0-4.8) k/uL PT (9.0-12.0) sec INR (<1.2) ABG pH 7.25 L (7.35-7.45) ABG pO2 68 L (83-108) mmHg ABG HCO3 17 L (21-25) mmol/L ABG O2 Saturation 90.9 L (94-97) % Potassium 5.2 H (3.5-5.1) mmol/L Chloride 111 H (98-107) mmol/L Carbon Dioxide 15 L (22-30) mmol/L BUN 47 H (9-20) mg/dL Creatinine 1.77 H (0.66-1.25) mg/dL Glucose 129 H (74-99) mg/dL POC Glucose (mg/dL) (75-99) mg/dL Plasma Lactic Acid Kishan 6.8 H* (0.7-2.0) mmol/L Calcium (8.4-10.2) mg/dL Phosphorus (2.5-4.5) mg/dL Magnesium (1.6-2.3) mg/dL Total Bilirubin 8.6 H (0.2-1.3) mg/dL AST 194 H (17-59) U/L ALT 116 H (21-72) U/L Alkaline Phosphatase 774 H (38-126) U/L Total Protein 5.7 L (6.3-8.2) g/dL Albumin 2.6 L (3.5-5.0) g/dL Urine Protein (Negative) Urine Ketones (Negative) Urine Blood (Negative) Urine Bilirubin (Negative) Ur Leukocyte Esterase (Negative) Urine RBC (0-5) /hpf Amorphous Sediment (None) /hpf 08/26/18 08/26/18 08/26/18 Range/Units 20:11 20:15 23:56 WBC (3.8-10.6) k/uL RBC (4.30-5.90) m/uL Hgb (13.0-17.5) gm/dL Hct (39.0-53.0) % MCV (80.0-100.0) fL MCHC (31.0-37.0) g/dL Neutrophils # (1.3-7.7) k/uL Lymphocytes # (1.0-4.8) k/uL PT (9.0-12.0) sec INR (<1.2) ABG pH (7.35-7.45) ABG pO2 (83-108) mmHg ABG HCO3 (21-25) mmol/L ABG O2 Saturation (94-97) % Potassium (3.5-5.1) mmol/L Chloride (98-107) mmol/L Carbon Dioxide (22-30) mmol/L BUN (9-20) mg/dL Creatinine (0.66-1.25) mg/dL Glucose (74-99) mg/dL POC Glucose (mg/dL) 130 H (75-99) mg/dL Plasma Lactic Acid Kishan 7.5 H* (0.7-2.0) mmol/L Calcium (8.4-10.2) mg/dL Phosphorus (2.5-4.5) mg/dL Magnesium (1.6-2.3) mg/dL Total Bilirubin (0.2-1.3) mg/dL AST (17-59) U/L ALT (21-72) U/L Alkaline Phosphatase (38-126) U/L Total Protein (6.3-8.2) g/dL Albumin (3.5-5.0) g/dL Urine Protein 2+ H (Negative) Urine Ketones Trace H (Negative) Urine Blood Large H (Negative) Urine Bilirubin 1+ H (Negative) Ur Leukocyte Esterase Trace H (Negative) Urine RBC >182 H (0-5) /hpf Amorphous Sediment Moderate H (None) /hpf 08/27/18 08/27/18 08/27/18 Range/Units 04:33 04:33 04:33 WBC 23.2 H (3.8-10.6) k/uL RBC 3.51 L (4.30-5.90) m/uL Hgb 11.0 L (13.0-17.5) gm/dL Hct 37.8 L (39.0-53.0) % MCV 107.7 H D (80.0-100.0) fL MCHC 29.0 L (31.0-37.0) g/dL Neutrophils # 21.8 H (1.3-7.7) k/uL Lymphocytes # 0.6 L (1.0-4.8) k/uL PT 18.7 H (9.0-12.0) sec INR 1.9 H (<1.2) ABG pH (7.35-7.45) ABG pO2 (83-108) mmHg ABG HCO3 (21-25) mmol/L ABG O2 Saturation (94-97) % Potassium 5.4 H (3.5-5.1) mmol/L Chloride 110 H (98-107) mmol/L Carbon Dioxide 17 L (22-30) mmol/L BUN 48 H (9-20) mg/dL Creatinine 2.06 H (0.66-1.25) mg/dL Glucose 204 H (74-99) mg/dL POC Glucose (mg/dL) (75-99) mg/dL Plasma Lactic Acid Kishan (0.7-2.0) mmol/L Calcium 7.9 L (8.4-10.2) mg/dL Phosphorus 6.3 H (2.5-4.5) mg/dL Magnesium 2.4 H (1.6-2.3) mg/dL Total Bilirubin 8.4 H (0.2-1.3) mg/dL AST 441 H (17-59) U/L ALT 178 H (21-72) U/L Alkaline Phosphatase 735 H (38-126) U/L Total Protein 5.4 L (6.3-8.2) g/dL Albumin 2.4 L (3.5-5.0) g/dL Urine Protein (Negative) Urine Ketones (Negative) Urine Blood (Negative) Urine Bilirubin (Negative) Ur Leukocyte Esterase (Negative) Urine RBC (0-5) /hpf Amorphous Sediment (None) /hpf 08/27/18 Range/Units 07:29 WBC (3.8-10.6) k/uL RBC (4.30-5.90) m/uL Hgb (13.0-17.5) gm/dL Hct (39.0-53.0) % MCV (80.0-100.0) fL MCHC (31.0-37.0) g/dL Neutrophils # (1.3-7.7) k/uL Lymphocytes # (1.0-4.8) k/uL PT (9.0-12.0) sec INR (<1.2) ABG pH (7.35-7.45) ABG pO2 (83-108) mmHg ABG HCO3 (21-25) mmol/L ABG O2 Saturation (94-97) % Potassium (3.5-5.1) mmol/L Chloride (98-107) mmol/L Carbon Dioxide (22-30) mmol/L BUN (9-20) mg/dL Creatinine (0.66-1.25) mg/dL Glucose (74-99) mg/dL POC Glucose (mg/dL) (75-99) mg/dL Plasma Lactic Acid Kishan 5.6 H* (0.7-2.0) mmol/L Calcium (8.4-10.2) mg/dL Phosphorus (2.5-4.5) mg/dL Magnesium (1.6-2.3) mg/dL Total Bilirubin (0.2-1.3) mg/dL AST (17-59) U/L ALT (21-72) U/L Alkaline Phosphatase (38-126) U/L Total Protein (6.3-8.2) g/dL Albumin (3.5-5.0) g/dL Urine Protein (Negative) Urine Ketones (Negative) Urine Blood (Negative) Urine Bilirubin (Negative) Ur Leukocyte Esterase (Negative) Urine RBC (0-5) /hpf Amorphous Sediment (None) /hpf Microbiology - Last 24 Hours (Table) 08/26/18 20:15 Urine Culture - Preliminary Urine,Catheterized 08/22/18 21:30 Blood Culture - Preliminary Blood No Growth after 96 hours Assessment and Plan (1) Ascites Current Visit: Yes Status: Acute Code(s): R18.8 - OTHER ASCITES SNOMED Code(s): 787715281 (2) Coagulopathy Current Visit: Yes Status: Acute Code(s): D68.9 - COAGULATION DEFECT, UNSPECIFIED SNOMED Code(s): 64987424 (3) Elevated liver enzymes Current Visit: Yes Status: Acute Code(s): R74.8 - ABNORMAL LEVELS OF OTHER SERUM ENZYMES SNOMED Code(s): 663877588 (4) Gastric mass Current Visit: Yes Status: Acute Code(s): K31.9 - DISEASE OF STOMACH AND DUODENUM, UNSPECIFIED SNOMED Code(s): 592157254 (5) Hematuria Current Visit: Yes Status: Acute Code(s): R31.9 - HEMATURIA, UNSPECIFIED SNOMED Code(s): 12794618 (6) History of pulmonary embolism Current Visit: Yes Status: Acute Code(s): Z86.711 - PERSONAL HISTORY OF PULMONARY EMBOLISM SNOMED Code(s): 945623663 (7) Jaundice Current Visit: Yes Status: Acute Code(s): R17 - UNSPECIFIED JAUNDICE SNOMED Code(s): 45460045
[2018-08-27] MEDS: DEXTROSE 5% IN WATER 1,000 ML with SODIUM BICARB (1 MEQ/ML) 150 ML IV SCH (13:04)
--- NOTE | 2018-08-27 13:56 | P.PN ---
Subjective Progress Note Date: 08/27/18 On 08/25/1999 and I cannot think this patient for a follow-up. The patient got transferred to the ICU yesterday after patient had a massive aspiration post- EGD. EGD findings were noted and the patient has a partially obstructing gastric mass in the antrum of the stomach. The patient had infiltration of the left lung. He got transferred to the intensive care unit as the patient was lethargic, hypoxic and acidotic. Overnight, the patient was kept on a BiPAP at a pressure of 10/5 cm of water. He was placed on IV Zosyn. The patient was started on a bicarb drip. On today's evaluation is feeling much better. He was weaned down to 50% Ventimask. No significant cough or congestion. No chest p ain. No fever or chills. He is still unable to eat as the patient has a gastric mass obstructing the stomach. He is becoming progressively more weak. He has also become slightly more swollen and erythematous both in upper and lower extremities. No fever. No chills. No tachycardia. No altered mentation. Family is at the bedside. Atelectatic discussion with the daughter. We decided to insert a triple lumen catheter to start the patient on some TPN. We are the process of considering this patient to be chance for 2 [facility] for another evaluation for any preventative interventions can be done for the stomach for feeding purposes. There is upon the patient's wishes. White cell count is at 23. Lactic acid was as high as 1.7 started on to 5.1. To 5.1. The patient also developed an acute kidney injury in the creatinine is up to 2.06. He remains nothing by mouth for now. 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 No signs of any acute GI bleeding for now. 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 Objective - Vital Signs Vital signs: Vital Signs Temp 97.4 F L 08/27/18 08:00 Pulse 92 08/27/18 12:25 Resp 27 H 08/27/18 11:00 BP 106/65 08/27/18 11:00 Pulse Ox 93 L 08/27/18 11:21 Intake & Output 08/26/18 08/27/18 08/27/18 18:59 06:59 18:59 Intake Total 1100 3950 375 Output Total 500 132 150 Balance 600 3818 225 Weight 112.1 kg Intake: IV 600 3950 375 Dextrose 5% in Water 1, 750 375 000 ml @ 75 mls/hr IV . [id number] FILEMON with Sodium Bicarb (1 Meq/ml) 150 ml Rx#:[id number] Piperacillin-Tazobactam 3 200 .375 gm In Sodium Chloride 0.9% 100 ml @ 25 mls/hr IVPB Q8H FILEMON Rx#: [id number] Sodium Chloride 0.9% 1, 3000 000 ml @ 999 mls/hr IV . Q1H1M ONE Rx#:[id number] Intake, IV Titration 500 Amount Sodium Chloride 0.9% 1, 500 000 ml @ 100 mls/hr IV . Q10H FILEMON Rx#:[id number] Output: Urine 500 132 150 Other: Voiding Method Urinal Indwelling Catheter Indwelling Catheter # Voids 1 1 - Exam GENERAL EXAM: Alert, jaundiced 82-year-old patient in mild to moderate respiratory distress. On 50% Ventimask and the patient seems to much more comfortable compared to yesterday. No signs of any acute respiratory distress. He is alert and awake. HEAD: Normocephalic/atraumatic. EYES: Normal reaction of pupils, equal size. Conjunctiva pink, sclera white. NOSE: Clear with pink turbinates. THROAT: No erythema or exudates. NECK: No masses, no JVD, no thyroid enlargement, no adenopathy. CHEST: No chest wall deformity. Symmetrical expansion. LUNGS: Equal air entry with scattered rhonchi, crackles more so on the left lung. CVS: Regular rate and rhythm, normal S1 and S2, no gallops, no murmurs, no rubs ABDOMEN: Soft, distended, nontender. No hepatosplenomegaly, normal bowel sounds, no guarding or rigidity. EXTREMITIES: No clubbing, no edema, no cyanosis, 2+ pulses and upper and lower extremities. MUSCULOSKELETAL: Muscle strength and tone normal. SPINE: No scoliosis or deformity SKIN: No rashes CENTRAL NERVOUS SYSTEM: Alert and oriented -3. No focal deficits, tone is normal in all 4 extremities. PSYCHIATRIC: Alert and oriented -3. Appropriate affect. Intact judgment and insight. - Labs - Labs CBC & Chem 7: 08/27/18 04:33 08/27/18 04:33 Labs: Abnormal Lab Results - Last 24 Hours (Table) 08/26/18 08/26/18 08/26/18 Range/Units 18:55 19:50 19:50 WBC (3.8-10.6) k/uL RBC (4.30-5.90) m/uL Hgb (13.0-17.5) gm/dL Hct (39.0-53.0) % MCV (80.0-100.0) fL MCHC (31.0-37.0) g/dL Neutrophils # (1.3-7.7) k/uL Lymphocytes # (1.0-4.8) k/uL PT (9.0-12.0) sec INR (<1.2) ABG pH 7.25 L (7.35-7.45) ABG pO2 68 L (83-108) mmHg ABG HCO3 17 L (21-25) mmol/L ABG O2 Saturation 90.9 L (94-97) % Potassium 5.2 H (3.5-5.1) mmol/L Chloride 111 H (98-107) mmol/L Carbon Dioxide 15 L (22-30) mmol/L BUN 47 H (9-20) mg/dL Creatinine 1.77 H (0.66-1.25) mg/dL Glucose 129 H (74-99) mg/dL POC Glucose (mg/dL) (75-99) mg/dL Plasma Lactic Acid Kishan 6.8 H* (0.7-2.0) mmol/L Calcium (8.4-10.2) mg/dL Phosphorus (2.5-4.5) mg/dL Magnesium (1.6-2.3) mg/dL Total Bilirubin 8.6 H (0.2-1.3) mg/dL AST 194 H (17-59) U/L ALT 116 H (21-72) U/L Alkaline Phosphatase 774 H (38-126) U/L Total Protein 5.7 L (6.3-8.2) g/dL Albumin 2.6 L (3.5-5.0) g/dL Urine Protein (Negative) Urine Ketones (Negative) Urine Blood (Negative) Urine Bilirubin (Negative) Ur Leukocyte Esterase (Negative) Urine RBC (0-5) /hpf Amorphous Sediment (None) /hpf 08/26/18 08/26/18 08/26/18 Range/Units 20:11 20:15 23:56 WBC (3.8-10.6) k/uL RBC (4.30-5.90) m/uL Hgb (13.0-17.5) gm/dL Hct (39.0-53.0) % MCV (80.0-100.0) fL MCHC (31.0-37.0) g/dL Neutrophils # (1.3-7.7) k/uL Lymphocytes # (1.0-4.8) k/uL PT (9.0-12.0) sec INR (<1.2) ABG pH (7.35-7.45) ABG pO2 (83-108) mmHg ABG HCO3 (21-25) mmol/L ABG O2 Saturation (94-97) % Potassium (3.5-5.1) mmol/L Chloride (98-107) mmol/L Carbon Dioxide (22-30) mmol/L BUN (9-20) mg/dL Creatinine (0.66-1.25) mg/dL Glucose (74-99) mg/dL POC Glucose (mg/dL) 130 H (75-99) mg/dL Plasma Lactic Acid Kishan 7.5 H* (0.7-2.0) mmol/L Calcium (8.4-10.2) mg/dL Phosphorus (2.5-4.5) mg/dL Magnesium (1.6-2.3) mg/dL Total Bilirubin (0.2-1.3) mg/dL AST (17-59) U/L ALT (21-72) U/L Alkaline Phosphatase (38-126) U/L Total Protein (6.3-8.2) g/dL Albumin (3.5-5.0) g/dL Urine Protein 2+ H (Negative) Urine Ketones Trace H (Negative) Urine Blood Large H (Negative) Urine Bilirubin 1+ H (Negative) Ur Leukocyte Esterase Trace H (Negative) Urine RBC >182 H (0-5) /hpf Amorphous Sediment Moderate H (None) /hpf 08/27/18 08/27/18 08/27/18 Range/Units 04:33 04:33 04:33 WBC 23.2 H (3.8-10.6) k/uL RBC 3.51 L (4.30-5.90) m/uL Hgb 11.0 L (13.0-17.5) gm/dL Hct 37.8 L (39.0-53.0) % MCV 107.7 H D (80.0-100.0) fL MCHC 29.0 L (31.0-37.0) g/dL Neutrophils # 21.8 H (1.3-7.7) k/uL Lymphocytes # 0.6 L (1.0-4.8) k/uL PT 18.7 H (9.0-12.0) sec INR 1.9 H (<1.2) ABG pH (7.35-7.45) ABG pO2 (83-108) mmHg ABG HCO3 (21-25) mmol/L ABG O2 Saturation (94-97) % Potassium 5.4 H (3.5-5.1) mmol/L Chloride 110 H (98-107) mmol/L Carbon Dioxide 17 L (22-30) mmol/L BUN 48 H (9-20) mg/dL Creatinine 2.06 H (0.66-1.25) mg/dL Glucose 204 H (74-99) mg/dL POC Glucose (mg/dL) (75-99) mg/dL Plasma Lactic Acid Kishan (0.7-2.0) mmol/L Calcium 7.9 L (8.4-10.2) mg/dL Phosphorus 6.3 H (2.5-4.5) mg/dL Magnesium 2.4 H (1.6-2.3) mg/dL Total Bilirubin 8.4 H (0.2-1.3) mg/dL AST 441 H (17-59) U/L ALT 178 H (21-72) U/L Alkaline Phosphatase 735 H (38-126) U/L Total Protein 5.4 L (6.3-8.2) g/dL Albumin 2.4 L (3.5-5.0) g/dL Urine Protein (Negative) Urine Ketones (Negative) Urine Blood (Negative) Urine Bilirubin (Negative) Ur Leukocyte Esterase (Negative) Urine RBC (0-5) /hpf Amorphous Sediment (None) /hpf 08/27/18 08/27/18 Range/Units 07:29 11:39 WBC (3.8-10.6) k/uL RBC (4.30-5.90) m/uL Hgb (13.0-17.5) gm/dL Hct (39.0-53.0) % MCV (80.0-100.0) fL MCHC (31.0-37.0) g/dL Neutrophils # (1.3-7.7) k/uL Lymphocytes # (1.0-4.8) k/uL PT (9.0-12.0) sec INR (<1.2) ABG pH (7.35-7.45) ABG pO2 (83-108) mmHg ABG HCO3 (21-25) mmol/L ABG O2 Saturation (94-97) % Potassium (3.5-5.1) mmol/L Chloride (98-107) mmol/L Carbon Dioxide (22-30) mmol/L BUN (9-20) mg/dL Creatinine (0.66-1.25) mg/dL Glucose (74-99) mg/dL POC Glucose (mg/dL) (75-99) mg/dL Plasma Lactic Acid Kishan 5.6 H* 5.1 H* (0.7-2.0) mmol/L Calcium (8.4-10.2) mg/dL Phosphorus (2.5-4.5) mg/dL Magnesium (1.6-2.3) mg/dL Total Bilirubin (0.2-1.3) mg/dL AST (17-59) U/L ALT (21-72) U/L Alkaline Phosphatase (38-126) U/L Total Protein (6.3-8.2) g/dL Albumin (3.5-5.0) g/dL Urine Protein (Negative) Urine Ketones (Negative) Urine Blood (Negative) Urine Bilirubin (Negative) Ur Leukocyte Esterase (Negative) Urine RBC (0-5) /hpf Amorphous Sediment (None) /hpf Microbiology - Last 24 Hours (Table) 08/26/18 20:15 Urine Culture - Preliminary Urine,Catheterized 08/22/18 21:30 Blood Culture - Preliminary Blood No Growth after 96 hours Assessment and Plan Plan: Assessment 1 gastric mass obstructing the stomach antrum and causing some limited amount of anatomic obstruction with difficulty with feeding and nutrition. 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 Biopsies were done and results are still pending for now. Meanwhile, postprocedure, the patient developed aspiration and the patient came in to the ICU with acute hypoxic respiratory failure. He is more stable as compared to yesterday and the plan is to transfer this patient to [facility] for another GI evaluation regarding any further advice for palliation either the form of stenting or gastrojejunostomy for palliative purposes. 2 acute aspiration post EGD 3 acute hypoxic history failure secondary to above currently on 50% Ventimask and the chest x-ray shows improvement in the left lung pulmonary infiltrate 4 prostate cancer post radiation therapy and currently on Lupron 5 history of DVT and the patient was on Coumadin and the Coumadin has been on hold as the patient was toxic with his INR at time of admission and his current INR is down to 1.9 6 peripheral vascular disease 7 coronary artery disease with previous coronary intervention stenting 8 chronic venous stasis involving lower extremities with previous history of DVT 9 hypertension 10 obstructive jaundice secondary to hepatitic metastases from possibly a gastric primary 11 non-anion gap metabolic acidosis currently the bicarb drip 12 acute kidney injury, and the creatinine is up to 2.06 13 lactic acidosis, improving 14 hypoproteinemia secondary to poor dietary intake Plan Condition is very critical. The patient's prognosis poor baseline above- mentioned findings. For now with probably dealing with a gastric cancer with me tastasis to his liver. He has developed an aspiration pneumonia and patient is currently on 50% Ventimask. Continue IV Zosyn. Aspiration precautions. Incidental triple-lumen catheter and initiate the patient on TPN for nutritional support. Start the patient on Lovenox 1 mg per KG therapeutic dose regarding his previous history of DVT. INR is currently down to 1.9. Continue the bicarb infusion for now. Monitor renal function. Monitor urine output. Monitor lactic acid level. The patient is being considered to be transferred to [facility] for another GI evaluation in consultation for any endoscopic stenting of the gastric obstruction versus any palliative surgical procedure such as a gastrojejunostomy for palliative purposes. Family is interested in that. The patient was to proceed with any further intervention if possible. In my opinion, his prognosis as the patient has started off with a impaired performance and functional status. We'll initiate TPN once dietary recommendations are obtained. We'll continue to follow. He'll be kept in ICU for now.
[2018-08-27 14:00] VITALS: TEMP 97.6
[2018-08-27 14:15] VITALS: BMI 35.4
--- NOTE | 2018-08-27 14:15 | XR ---
EXAMINATION TYPE: XR chest 1V confirm line [facility] DATE OF EXAM: 08/27/2018 HISTORY: line placement . REFERENCE: Previous study of earlier today. FINDINGS: A left subclavian catheter is been inserted. Its tip is in the superior vena cava. No pneum othorax is identified. There continues be left basilar airspace disease. There is platelike atelectasis in the right lung ba se. There is a small left effusion the heart is not enlarged. IMPRESSION: 1. NO POST CATHETER INSERTION COMPLICATION. 2. BIBASILAR AIRSPACE DISEASE. 3. SMALL LEFT EFFUSION.
[2018-08-27] MEDS ORDERED: ENOXAPARIN 100 MG/ML SYRINGE SQ STA (14:18)
[2018-08-27 15:26] LABS: Ionized Calcium 4.7 mg/dL (4.5-5.3)
[2018-08-27] MEDS ORDERED: MVI, ADULT NO.4 WITH VIT K 10 ML, TRACE (CONC-1ML/DOSE) 1 ML in AMINO ACID 5%-D15W 1,00... IV SCH ×3 (15:30)
[2018-08-27 16:32] VITALS: BP 115/71; PULSE 92; RESP 15
[2018-08-27] MEDS ORDERED: FAT EMULSION 20% 250 ML in EMPTY BAG 1 BAG IV SCH (18:00)
--- NOTE | 2018-08-27 18:29 | PCN ---
PROCEDURE NOTE PREOP DIAGNOSES: Acute hypoxic respiratory failure, gastric mass, gastric outlet obstruction, need for TPN. POSTOP DIAGNOSES: Acute hypoxic respiratory failure, gastric mass, gastric outlet obstruction, need for TPN. TRIPLE LUMEN CATHETER PLACEMENT: Indication Hemodynamic monitoring/Intravenous access. A time-out was completed verifying correct patient, procedure, site, positioning, and implant(s) or special equipment if applicable. The patient was placed in a dependent position appropriate for triple lumen catheter placement based on the vein to be cannulated. The patient's left shoulder was prepped and draped in sterile fashion. 1% Lidocaine was used to anesthetize the surrounding skin area. A triple lumen 9F Cordis catheter was introduced into the left subclavian using Seldinger technique. The catheter was threaded smoothly over the guide wire and appropriate blood return was obtained. Each lumen of the catheter was evacuated of air and flushed with sterile saline. The catheter was then sutured in place to the skin and a sterile dressing applied. Perfusion to the extremity distal to the point of catheter insertion was checked and found to be adequate. No bedside complications or bleeding. MMODL / IJN: [id number] /
--- NOTE | 2018-08-27 21:15 | P.PN ---
Subjective Progress Note Date: 08/27/18 Principal diagnosis: Jaundice, decreased oral intake Patient seen lying in bed after central line placement. Still reporting abdominal distention. No nausea or vomiting reported. Objective - Vital Signs Vital signs: Vital Signs Temp 97.6 F 08/27/18 13:00 Pulse 92 08/27/18 16:30 Resp 15 08/27/18 16:30 BP 115/71 08/27/18 16:30 Pulse Ox 93 L 08/27/18 16:30 Intake & Output 08/27/18 08/27/18 08/28/18 06:59 18:59 06:59 Intake Total 3950 982 Output Total 132 290 Balance 3818 692 Weight 112.1 kg 112.1 kg Intake: IV 3950 850 Dextrose 5% in Water 1, 750 750 000 ml @ 75 mls/hr IV . [id number] FILEMON with Sodium Bicarb (1 Meq/ml) 150 ml Rx#:[id number] Piperacillin-Tazobactam 3 200 100 .375 gm In Sodium Chloride 0.9% 100 ml @ 25 mls/hr IVPB Q8H [facility] Rx#: [id number] Sodium Chloride 0.9% 1, 3000 000 ml @ 999 mls/hr IV . Q1H1M ONE Rx#:[id number] Intake, IV Titration 132 Amount Fat Emulsion 20% 250 ml 42 In Empty Bag 1 bag @ 21 mls/hr IV DAILY@1800 [facility] Rx#:[id number] Mvi, Adult No.4 with Vit 90 K 10 ml Trace (Conc-1Ml/ Dose) 1 ml In Amino Acid 5%-D15w 1,000 ml @ 90 mls /hr IV .BY DURATION [facility] Rx#:[id number] Output: Urine 132 290 Other: Voiding Method Indwelling Catheter Indwelling Catheter # Voids 1 - Exam On physical examination, patient appears comfortable in no apparent distress. HEAD: Normocephalic, atraumatic. EYES: Scleral icterus noted. No conjunctival injection. MOUTH: No lesions, tongue midline. NECK: Trachea midline, no gross abnormalities. CHEST: Decreased air entry in all lung gutierres. ABDOMEN: Soft, obese. Bowel sounds are positive. No organomegaly. No guarding or rigidity. EXTREMITIES: Bilateral pedal edema. SKIN: No rashes, mild jaundice. NEUROLOGIC: Alert and oriented x3. No focal deficits. - Labs CBC & Chem 7: 03/23/19 04:33 08/27/18 04:33 Labs: Abnormal Lab Results - Last 24 Hours (Table) 08/26/18 08/26/18 08/27/18 Range/Units 20:15 23:56 04:33 WBC 23.2 H (3.8-10.6) k/uL RBC 3.51 L (4.30-5.90) m/uL Hgb 11.0 L (13.0-17.5) gm/dL Hct 37.8 L (39.0-53.0) % MCV 107.7 H D (80.0-100.0) fL MCHC 29.0 L (31.0-37.0) g/dL Neutrophils # 21.8 H (1.3-7.7) k/uL Lymphocytes # 0.6 L (1.0-4.8) k/uL PT (9.0-12.0) sec INR (<1.2) Potassium (3.5-5.1) mmol/L Chloride (98-107) mmol/L Carbon Dioxide (22-30) mmol/L BUN (9-20) mg/dL Creatinine (0.66-1.25) mg/dL Glucose (74-99) mg/dL Plasma Lactic Acid Kishan 7.5 H* (0.7-2.0) mmol/L Calcium (8.4-10.2) mg/dL Phosphorus (2.5-4.5) mg/dL Magnesium (1.6-2.3) mg/dL Total Bilirubin (0.2-1.3) mg/dL AST (17-59) U/L ALT (21-72) U/L Alkaline Phosphatase (38-126) U/L Total Protein (6.3-8.2) g/dL Albumin (3.5-5.0) g/dL Urine Protein 2+ H (Negative) Urine Ketones Trace H (Negative) Urine Blood Large H (Negative) Urine Bilirubin 1+ H (Negative) Ur Leukocyte Esterase Trace H (Negative) Urine RBC >182 H (0-5) /hpf Amorphous Sediment Moderate H (None) /hpf 08/27/18 08/27/18 08/27/18 Range/Units 04:33 04:33 07:29 WBC (3.8-10.6) k/uL RBC (4.30-5.90) m/uL Hgb (13.0-17.5) gm/dL Hct (39.0-53.0) % MCV (80.0-100.0) fL MCHC (31.0-37.0) g/dL Neutrophils # (1.3-7.7) k/uL Lymphocytes # (1.0-4.8) k/uL PT 18.7 H (9.0-12.0) sec INR 1.9 H (<1.2) Potassium 5.4 H (3.5-5.1) mmol/L Chloride 110 H (98-107) mmol/L Carbon Dioxide 17 L (22-30) mmol/L BUN 48 H (9-20) mg/dL Creatinine 2.06 H (0.66-1.25) mg/dL Glucose 204 H (74-99) mg/dL Plasma Lactic Acid Kishan 5.6 H* (0.7-2.0) mmol/L Calcium 7.9 L (8.4-10.2) mg/dL Phosphorus 6.3 H (2.5-4.5) mg/dL Magnesium 2.4 H (1.6-2.3) mg/dL Total Bilirubin 8.4 H (0.2-1.3) mg/dL AST 441 H (17-59) U/L ALT 178 H (21-72) U/L Alkaline Phosphatase 735 H (38-126) U/L Total Protein 5.4 L (6.3-8.2) g/dL Albumin 2.4 L (3.5-5.0) g/dL Urine Protein (Negative) Urine Ketones (Negative) Urine Blood (Negative) Urine Bilirubin (Negative) Ur Leukocyte Esterase (Negative) Urine RBC (0-5) /hpf Amorphous Sediment (None) /hpf 08/27/18 Range/Units 11:39 WBC (3.8-10.6) k/uL RBC (4.30-5.90) m/uL Hgb (13.0-17.5) gm/dL Hct (39.0-53.0) % MCV (80.0-100.0) fL MCHC (31.0-37.0) g/dL Neutrophils # (1.3-7.7) k/uL Lymphocytes # (1.0-4.8) k/uL PT (9.0-12.0) sec INR (<1.2) Potassium (3.5-5.1) mmol/L Chloride (98-107) mmol/L Carbon Dioxide (22-30) mmol/L BUN (9-20) mg/dL Creatinine (0.66-1.25) mg/dL Glucose (74-99) mg/dL Plasma Lactic Acid Kishan 5.1 H* (0.7-2.0) mmol/L Calcium (8.4-10.2) mg/dL Phosphorus (2.5-4.5) mg/dL Magnesium (1.6-2.3) mg/dL Total Bilirubin (0.2-1.3) mg/dL AST (17-59) U/L ALT (21-72) U/L Alkaline Phosphatase (38-126) U/L Total Protein (6.3-8.2) g/dL Albumin (3.5-5.0) g/dL Urine Protein (Negative) Urine Ketones (Negative) Urine Blood (Negative) Urine Bilirubin (Negative) Ur Leukocyte Esterase (Negative) Urine RBC (0-5) /hpf Amorphous Sediment (None) /hpf Microbiology - Last 24 Hours (Table) 08/26/18 20:15 Urine Culture - Preliminary Urine,Catheterized 08/22/18 21:30 Blood Culture - Preliminary Blood No Growth after 96 hours Assessment and Plan (1) Gastric mass Narrative/Plan: Patient presenting to the hospital with complaints of decreased oral intake, abdominal pain and distention, and jaundice who subsequently had CT imaging with findings of multiple liver lesions and gastric thickening. She underwent upper endoscopy yesterday with findings of a antral mass and almost complete obstruction of the pylorus. The small bowel was able to be intubated however large amount of retained food was found in the stomach. Biopsy results from the gastric mass are still pending. Status: Acute Code(s): K31.9 - DISEASE OF STOMACH AND DUODENUM, UNSPECIFIED SNOMED Code(s): 927086867 (2) Abdominal pain Status: Acute Code(s): R10.9 - UNSPECIFIED ABDOMINAL PAIN SNOMED Code(s): 45485884 (3) Elevated liver enzymes Narrative/Plan: Elevation in the liver enzymes in both a cholestatic and hepatocellular pattern. Bilirubin has hovered in the 7-8 range. At this point it is felt based on CT imaging of numerous liver lesions highly suspicious for metastases that the elevation in the patient's liver enzymes are due to intrahepatic burden of the patient's metastatic malignancy. Primary is suspected to be from the patient's gastric mass with biopsy results pending. Status: Acute Code(s): R74.8 - ABNORMAL LEVELS OF OTHER SERUM ENZYMES SNOMED Code(s): 953072438 Plan: Supportive care Continue ICU management Continue IV antibiotics for suspected aspiration pneumonia Nothing by mouth Biopsies from gastric mass pending final results Transferred to [facility] has been initiated, patient will benefit from evaluation for pyloric stent placement given almost complete gastric outlet obstruction from gastric mass as well as evaluation for possible biliary stent placement although it is felt based on CT imaging that the patient's elevation in liver enzymes is more likely from intrahepatic disease then biliary obstruction Thank you for allowing us to participate in the care of this patient we'll continue to follow
--- NOTE | 2018-08-28 10:11 | P.DS ---
Providers Date of admission: 08/22/18 21:48 Attending physician: Solomon Jeter Consults: 08/22/18 22:09 Consult Physician Routine Consulting Provider: Jesus Montalvo Consult Reason/Comments: known Do you want consulting provider notified?: Yes 08/23/18 11:26 Consult Physician Routine Consulting Provider: Dom Downs Consult Reason/Comments: Elevated LFTs, gallbladder pain Do you want consulting provider notified?: Yes 08/23/18 12:56 Consult Physician Routine Consulting Provider: Yefri Ochoa Consult Reason/Comments: Elevated liver enzymes Do you want consulting provider notified?: Yes 08/25/18 18:52 Consult Physician Routine Consulting Provider: Eliseo Rg Consult Reason/Comments: abnormal CT hx prostate cancer Do you want consulting provider notified?: Yes Primary care physician: Jesus Montalvo [facility] Course: Diagnoses: -Sepsis: Possibility of ascending cholangitis possibility of urinary tract infection is low. Patient is on Unasyn which is switched to Zosyn. hematuria improved INR is 1.9. -Possible gastric cancer. EGD: Partially obstructing gastric mass in the antrum -Multiple hepatic lesions concerning for malignancy. Patient is s/p upper GI endoscopy: Partially obstructing stomach mass -Hematuria: Secondary to supratherapeutic INR, improved now -History of pulmonary embolism patient copay a for new anticoagulants is very high so patient may need to go back on Coumadin again. Patient was started on Lovenox -Acute renal failure on chronic kidney disease stage III from hypertensive nephrosclerosis patient will be continued on IV fluids -Hypovolemic hyponatremia improved with IV fluids -Hypertension holding off TONY inhibitor secondary to hypotension and the kidney failure -Hyperkalemia secondary to TONY inhibitor and acute renal failure. Potassium today is 5.4 -History of DVTs PEs with the Milner filter, presently holding off on Coumadin because of supratherapeutic INR hematuria. Started on Lovenox -History of prostate cancer status post radiation therapy and Lupron -Patient will need pharmacologic GI prophylaxis Hospital course This is a pleasant 82 years old male with past medical history of coronary artery disease, hypertension, pulmonary embolism on anticoagulation, history of prostate cancer status post radiotherapy and hormone therapy, psoriasis. Patient was sent to the hospital for high INR of 8.8 on admission. Patient also was complaining of from hematuria, fever and chills, sepsis suspected secondary to ascending cholangitis, or urinary tract infection. Investigation showed patient has multiple liver metastases, and he had EGD yesterday 08/26/2018: Thick stomach wall, suspicious for cancer. However after the EGD patient becomes hypoxic and hypotensive, And he was transferred to the intensive care unit. Patient received fluid resuscitation about 2.5 L, oxygen a provided and he feels better. Currently right is more stable with blood pressure 112/67 and heart rate ranging between mid 90s to 100s. Patient is saturating 92% on high flow oxygen, 15 L/m via NC. Repeat chest x-ray showing bibasilar airspace disease with a small left pleural effusion. Patient most likely have aspirated post EGD. EGD: Partially obstructing gastric mass in the antrum of the stomach. Patient was started on TPN. Patient antibiotic was switched to Zosyn. He was started on Lovenox 100 mg which is therapeutic dose for history of multiple DVT, his INR is 1.9. He has high lactic acidosis of 7.5, and down to 5.1. Elevated liver enzymes secondary to liver lesions. He has also acute kidney injury with creatinine going up to 2.0, compared to baseline of 1.1.Several consultants were following the patient here including gastroenterology, coronary/critical care, surgery . Patient was recommended to transfer to her report for another GI evaluation regarding possible stenting or gastrojejunostomy tube, and for further evaluation of his stomach mass. Patient and family aware with patient diagnosis and they agreed to transfer the patient to [facility]. Patient is stable to transfer, however his prognosis is guarded and poor. discharge exam Gen: patient is a AAOx3, no distress. Generally weak CVS: S1-S2, RRR, no murmur Lungs: B/L CTA, no wheezing Abdomen: soft, no distention, no tenderness, positive bowel sounds Extremity: no leg edema or induration Time spent more than 35 minutes Patient Condition at Discharge: Fair Plan - Discharge Summary Discharge Rx Participant: No New Discharge Prescriptions: New Apixaban [Eliquis] 5 mg PO BID #60 tab No Action Telmisartan [Micardis] 20 mg PO DAILY Vit C/E/Zn/Coppr/Lutein/Zeaxan [Preservision Areds 2 Softgel] 1 tab PO DAILY Acetaminophen [Tylenol] 325 mg PO DAILY Cyanocobalamin (Vitamin B-12) [Vitamin B-12] 1,000 mcg PO DAILY Cholecalciferol [Vitamin D3] 1,000 unit PO DAILY Warfarin Sodium 5 mg PO DAILY Discharge Medication List Telmisartan [Micardis] 20 mg PO DAILY 12/17/14 [History] Vit C/E/Zn/Coppr/Lutein/Zeaxan [Preservision Areds 2 Softgel] 1 tab PO DAILY 12/20/14 [History] Acetaminophen [Tylenol] 325 mg PO DAILY 08/22/18 [History] Cholecalciferol [Vitamin D3] 1,000 unit PO DAILY 08/22/18 [History] Cyanocobalamin (Vitamin B-12) [Vitamin B-12] 1,000 mcg PO DAILY 08/22/18 [History] Warfarin Sodium 5 mg PO DAILY 08/22/18 [History] Apixaban [Eliquis] 5 mg PO BID #60 tab 08/24/18 [Rx] Follow up Appointment(s)/Referral(s): Jesus Montalvo MD [Primary Care Provider] - 1-2 days Activity/Diet/Wound Care/Special Instructions: verify Eliquis Rx coverage
[2018-08-28] MEDS ORDERED: [UNRECOGNIZED DRUG - REMARK] IV SCH ×3 (15:30)
== END 2018-08-27 17:22 | disposition short-term general hospital (02) | DRG 871 ==
LOC: EC 17:26 → 3NMEDONC 21:48 → 2SICU 08-26 20:00
PROVIDERS: ADMIT Hospitalist; ATTEND Hospitalist
PROC: 5A09457 Assistance with Respiratory Ventilation, 24-96 Consecutive Hours, Continuous Positive Airway Pressure (ICD-10-PCS; 2018-08-26)
PROC: 0DB98ZX Excision of Duodenum, Via Natural or Artificial Opening Endoscopic, Diagnostic (ICD-10-PCS; principal; 2018-08-26 07:30)
PROC: 0DB78ZX Excision of Stomach, Pylorus, Via Natural or Artificial Opening Endoscopic, Diagnostic (ICD-10-PCS; principal; 2018-08-26 07:30)
PROC: 05H633Z Insertion of Infusion Device into Left Subclavian Vein, Percutaneous Approach (ICD-10-PCS; 2018-08-27)
DX: A41.9 Sepsis, unspecified organism (principal); J96.01 Acute respiratory failure with hypoxia; J69.0 Pneumonitis due to inhalation of food and vomit; C78.7 Secondary malignant neoplasm of liver and intrahepatic bile duct; D68.32 Hemorrhagic disorder due to extrinsic circulating anticoagulants; E87.1 Hypo-osmolality and hyponatremia; E87.2 Acidosis; K31.1 Adult hypertrophic pyloric stenosis; N17.9 Acute kidney failure, unspecified; N39.0 Urinary tract infection, site not specified; R18.8 Other ascites; C16.9 Malignant neoplasm of stomach, unspecified; E77.8 Other disorders of glycoprotein metabolism; E86.0 Dehydration; E86.1 Hypovolemia; E87.5 Hyperkalemia; I12.9 Hypertensive chronic kidney disease with stage 1 through stage 4 chronic kidney disease, or unspecified chronic kidney disease; I25.10 Atherosclerotic heart disease of native coronary artery without angina pectoris; I73.9 Peripheral vascular disease, unspecified; I87.8 Other specified disorders of veins; K59.00 Constipation, unspecified; K80.20 Calculus of gallbladder without cholecystitis without obstruction; N18.3 Chronic kidney disease, stage 3 (moderate); T45.515A Adverse effect of anticoagulants, initial encounter; T46.4X5A Adverse effect of angiotensin-converting-enzyme inhibitors, initial encounter; Z79.01 Long term (current) use of anticoagulants; Z79.899 Other long term (current) drug therapy; Z85.46 Personal history of malignant neoplasm of prostate; Z86.711 Personal history of pulmonary embolism; Z86.718 Personal history of other venous thrombosis and embolism; Z87.891 Personal history of nicotine dependence; Z92.3 Personal history of irradiation; Z95.5 Presence of coronary angioplasty implant and graft; C61 Malignant neoplasm of prostate
CPT/HCPCS: 36415; 36600; 43239; 71045; 74176; 74177; 76705; 80053; 80074; 81001; 82103; 82105; 82150; 82330; 82378; 82390; 82728; 82805; 83516; 83540; 83550; 83605; 83690; 83735; 84100; 84165; 84439; 84443; 84478; 85025; 85610; 85652; 85730; 86038; 86301; 86376; 86850; 86900; 86901; 87040; 87086; 88305; 93005; 94640; 94660; 96361; 96365; 96366; 99285

== ENCOUNTER → 2018-08-22 | Outpatient (CLI) | payer MEDICARE, BC ==
[2018-08-22 16:19] LABS: Basophils % (A) 0 %; Eosinophils # (A) 0.1 k/uL (0-0.7); Eosinophils % (A) 1 %; HCT 42.8 % (39.0-53.0); Lymphocytes # (A) 0.5 k/uL (1.0-4.8); Lymphocytes % (A) 3 %; MCHC 30.3 g/dL (31.0-37.0); MCV 102.3 fL (80.0-100.0); Macrocytosis Slight; Mean Platelet Volume 6.8; Monocytes # (A) 1.2 k/uL (0-1.0); Monocytes % (A) 6 %; Neutrophils # (A) 17.6 k/uL (1.3-7.7); Neutrophils % (A) 89 %; Platelet Count 558 k/uL (150-450); RBC 4.18 m/uL (4.30-5.90); RDW 13.1 % (11.5-15.5); WBC 19.8 k/uL (3.8-10.6)
[2018-08-22 16:34] LABS: Appearance,Urine Turbid (Clear); Bacteria,Urine Rare /hpf; Bilirubin,Urine 1+ (Negative); Blood,Urine Large (Negative); Color,Urine Dark Brown; Glucose,Urine (UA) Negative (Negative); Hyaline Casts,Urine 18 /lpf (0-2); Ketones,Urine Negative (Negative); Leukocyte Esterase,Urine Moderate (Negative); Nitrite,Urine Negative (Negative); PH, Urine 5.5 (5.0-8.0); Protein,Urine 1+ (Negative); RBC,Urine >182 /hpf (0-5); WBC,Urine 117 /hpf (0-5)
[2018-08-22 19:03] LABS: Erythrocyte Sedimentation Rate 50 mm/hr (0-15)
[2018-08-23 02:28] LABS: Albumin 3.6 g/dL (3.80-4.90); Albumin/Globulin Ratio 1.38 (1.60-3.17); Anion Gap 16.7 mmol/L (4.00-12.00); Calcium 8.7 mg/dL (8.7-10.3); Carbon Dioxide 18.3 mmol/L (21.6-31.8); Globulin 2.6 g/dL (1.6-3.3); Potassium 5.8 mmol/L (3.5-5.5); Total Bilirubin 3.8 mg/dL (0.2-1.2); Total Protein 6.2 g/dL (6.2-8.2)
[2018-08-23 02:34] LABS: T4, Free (Free Thyroxine) 1.3 ng/dL (0.80-1.80)
== END | disposition home or self-care (01) ==
LOC: LABWHC1 15:23
PROVIDERS: ATTEND Internal Medicine
DX: Z12.5 Encounter for screening for malignant neoplasm of prostate (principal); R63.4 Abnormal weight loss; R10.9 Unspecified abdominal pain; R31.9 Hematuria, unspecified
CPT/HCPCS: 84439; 80053; 85652; 82150; 83690; 84443; 85025; 81001; 87086; 36415; G0103

== ENCOUNTER → 2018-08-22 | Outpatient (CLI) | payer MEDICARE, BC ==
--- NOTE | 2018-08-22 20:12 | CT ---
EXAMINATION TYPE: CT abdomen pelvis wo con DATE OF EXAM: 08/22/2018 COMPARISON: 12/17/2014 HISTORY: ABDOMINAL PAIN CT DLP: 1018.2 mGycm Automated exposure control for dose reduction was used. TECHNIQUE: Helical acquisition of images was performed from the lung bases through the pelvis. FINDINGS: Lung bases are clear of consolidation. Heart size is normal. There is no pleural effusion. There is n o pericardial effusion. Stomach appears normal. Liver shows no focal defect. Spleen appears normal. There is no evidence of pancreatic mass. Gallblad david has normal size. There is probably tiny calcified gallstones.. Bile ducts are not dilated. There is abdominal ascites fluid throughout the abdomen. There is no adrenal mass. Kidneys have radha l size. There is no hydronephrosis. There is inferior vena cava filter. Abdominal aorta is atheromato us. There is no retroperitoneal adenopathy. Bladder is almost empty. There is no inguinal hernia. The re is no mesenteric edema. There is no sign of a bowel obstruction. There is no free air. There are s pondylotic changes in the lumbar spine. I see no bony destructive process. IMPRESSION: THERE IS PROBABLY TINY CALCIFIED GALLSTONES UNCHANGED. THERE IS NEW [id number] ABDOMINAL ASCITE S FLUID COMPARED TO OLD EXAM.
== END | disposition home or self-care (01) ==
LOC: RADCTMAIN 13:59
PROVIDERS: ATTEND Internal Medicine
DX: R18.8 Other ascites (principal)
CPT/HCPCS: 74176